=== PATIENT | female | born 1945 | race African-American/Black ===

== ENCOUNTER 2020-09-16 16:34 | Inpatient (IN) | payer OTHER, SELFPAY ==
[~2020-09-16] VITALS: Ht 167.6 cm; Wt 75.7 kg
--- NOTE | 2020-09-16 16:34 | NUR ---
Mckenzie GOLDEN, transferred to bed 10. RN evaluating patient at bedside.
--- NOTE | 2020-09-16 16:38 | NUR ---
Dr. Degroot is evaluating the patient at bedside.
[2020-09-16 16:41] VITALS: BP 179/76
[2020-09-16] MEDS ORDERED: DEXAMETHASONE 10 MG/ML VIAL IVP ONE (16:45)
[2020-09-16] MEDS ORDERED: AZITHROMYCIN 500 MG in DEXTROSE 5% 250 ML IV ONE (16:45)
[2020-09-16] MEDS ORDERED: cefTRIAXone 1,000 MG VIAL ONE (16:50)
[2020-09-16] MEDS ORDERED: AZITHROMYCIN 500 MG INJ VIAL IV ONE (16:50)
[2020-09-16] MEDS ORDERED: NACL 0.9% 1,000 ML IV ONE ×2 (17:00→21:00)
[2020-09-16 17:10] VITALS: BP 176/114
--- NOTE | 2020-09-16 17:10 | NUR ---
PT PLACED ON BIPAP AFTER ABG RESULTS GIVEN TO BIPAP VISION SETTINGS 14/7 RR 20 FIO2 100% ALARMS ON AND AUDIBLE AND B\S ARE DIMINISHED BILATERALLY, MED FACE MASK
--- NOTE | 2020-09-16 17:23 | NUR ---
@1641 received care of 75 year old female BIBA from home c/o shortness of breath, on non-rebreather but not connected to O2, pt gasping, labored breathing, tacypneic, diaphoretic. Pt transferred to bed, hooked up to O2 100 % 15 lpm NRB, connected to cardiac care nurse, IV access obtained, called to bedside, RT paged. Pt's intital vital signs @ 1649 : BP 179/76, HR 129, SpO2 83, RR 52 WV 125.
[2020-09-16 17:36] LABS: BASOPHILS % (AUTO) 0.8 % (0.0-2.0); HEMATOCRIT 34.8 % (36-48); HEMOGLOBIN 11.5 g/dL (12.0-16.0); LYMPHOCYTES # (AUTO) 0.4 K/uL (2.5-16.5); MEAN CORPUSCULAR HEMOGLOBIN 30 pg (27-31); MEAN CORPUSCULAR HGB CONC 33 g/dL (33-37); MEAN CORPUSCULAR VOLUME 90.5 fL (80-94); MONOCYTES # (AUTO) 0.4 K/uL (0.8-1.0); MONOCYTES % (AUTO) 6.7 % (1.7-9.3); NEUTROPHILS # (AUTO) 4.9 K/uL (1.8-7.7); NEUTROPHILS % (AUTO) 85.5 % (42.2-75.2); PLATELET COUNT (AUTO) 193 K/uL (140-450); RED BLOOD CELL COUNT(AUTO) 3.84 MIL/uL (4.20-5.40); RED CELL DISTRIBUTION WIDTH 19.7 % (11.6-13.7); WHITE BLOOD COUNT (AUTO) 5.7 K/uL (4.8-10.8)
[2020-09-16] MEDS ORDERED: ACETAMINOPHEN 650 MG SUPP RC ONE (17:45)
[2020-09-16 17:54] LABS: PROTHROMBIN TIME 12.1 secs (10.8-13.4)
[2020-09-16 17:55] LABS: ALBUMIN 2.5 g/dL (3.4-5.0); ANION GAP 16.1 (8-16); ASPARTATE AMINOTRANSFERASE 50 U/L (15-37); CHLORIDE 99 mmol/L (98-107); CREATININE 0.7 mg/dL (0.6-1.3); GLUCOSE 158 mg/dL (74-106); POTASSIUM 3.1 mmol/L (3.5-5.1); SODIUM SERUM 133 mmol/L (136-145); TOTAL BILIRUBIN 0.7 mg/dL (0.0-1.0); UREA NITROGEN, BLOOD 9 mg/dL (7-18)
[2020-09-16 17:56] LABS: C-REACTIVE PROTEIN QUANT 27.1 mg/dL (0.0-0.9)
[2020-09-16 18:03] LABS: APPEARANCE,URINE CLEAR (CLEAR); BILIRUBIN,URINE NEGATIVE (NEGATIVE); BLOOD, URINE TRACE-I (NEGATIVE); COLOR,URINE YELLOW (YELLOW); LEUKOCYTE ESTERASE ,URINE NEGATIVE (NEGATIVE); NITRITE, URINE NEGATIVE (NEGATIVE); UGLUCOSE NEGATIVE (NEGATIVE)
[2020-09-16 18:09] LABS: LACTATE DEHYDROGENASE 598 U/L (81-234)
--- NOTE | 2020-09-16 18:17 | NUR ---
Troponin 2.450--critical value received from lab. Dr Degroot made aware
--- NOTE | 2020-09-16 18:30 | NUR ---
MD notified of 3.1 K, will wait for Covid test results , per MD. Fluids not given, on hold, MD aware.
--- NOTE | 2020-09-16 18:44 | NUR ---
Covid +-- critical value received from lab. Dr Degroot made aware
--- NOTE | 2020-09-16 19:12 | NUR ---
Note undone in [facility] - 09/16/20 at 1916 by DEANA Dc hand-off report given to Sneha OSUNA for continuation of nursing care Addendum: 09/16/20 at 1912 by DEANA Dc Amendment undone in [facility] - 09/16/20 at 1916 by DEANA Coffman* Hand-off report given to Yeni OSUNA for continuation of nursing care.
--- NOTE | 2020-09-16 19:14 | NUR ---
RECIVED REPORT FROM MP OSUNA. TRANSFER OF CARE.
--- NOTE | 2020-09-16 19:20 | NUR ---
FAMILY AT BEDSIDE
--- NOTE | 2020-09-16 19:20 | NUR ---
WITH PERMISSON OF ERMD FAMILY AT BEDSIDE. PPE GIVEN.
--- NOTE | 2020-09-16 19:42 | NUR ---
RT AT BEDSIDE ASSESSING PATIENT.
[2020-09-16] MEDS ORDERED: MAG SULF 2000 MG/WATER PREMIX 50 ML IV PRN (20:05)
[2020-09-16] MEDS ORDERED: KCL 20 MEQ/WATER INJ PREMIX 200 ML IV PRN (20:05)
[2020-09-16] MEDS ORDERED: MORPHINE SULFATE 4 MG/ML SYR IVP PRN (20:05)
[2020-09-16] MEDS ORDERED: ONDANSETRON 4 MG/2 ML VIAL IVP PRN (20:05)
[2020-09-16] MEDS ORDERED: MAGNESIUM OXIDE 400 MG TAB PO PRN (20:05)
[2020-09-16] MEDS ORDERED: POTASSIUM CHLORIDE 10 MEQ TABER PO PRN (20:05)
[2020-09-16] MEDS ORDERED: HYDROcodone/APAP 5/325 MG 1 TAB TAB PO PRN (20:05)
[2020-09-16] MEDS ORDERED: remdesivir COMMUNICATION ORDER 1 EA MISC MC PRN ×2 (20:10→21:10)
[2020-09-16] MEDS ORDERED: guaiFENesin 20 MG/ML UDC PO PRN (20:10)
[2020-09-16] MEDS ORDERED: BENZONATATE 100 MG CAPLF PO PRN (20:10)
--- NOTE | 2020-09-16 20:17 | NUR ---
PATIENT O2SAT @ 79% ON BIPAP ERMD MADE AWARE. PER ERMD WILL TALK TO FAMILY ABOUT CODE STATUS. PER ERMD CODE STATUS STILL CURRENTLY FULL CODE.
[2020-09-16 20:37] LABS: RBC,URINE 0-5 /HPF (0-5)
[2020-09-16 20:38] LABS: FINE GRANULAR CASTS,URINE 0-10 /LPF (None Seen); URINE AMORPHOUS URATE 1+ /HPF (None Seen); WBC,URINE 0-5 /HPF (0-5)
--- NOTE | 2020-09-16 20:40 | NUR ---
NAOMI AT BEDSIDE. PER HER WISHES. PATIENT VERBALIZED, " I WANT TO BE INTUBATED, I WANT TO LIVE." NAOMI GAVE ORDERES TO SET UP INTUBATION PROCESS RT MADE AWARE.
[2020-09-16] MEDS ORDERED: PROPOFOL 1000 MG/100 ML PREMIX 100 ML IV ONE ×2 (20:43→20:45)
[2020-09-16] MEDS ORDERED: INTUBATION KIT MC ONE (20:43)
[2020-09-16] MEDS ORDERED: ETOMIDATE 20 MG/10 ML VIAL IVP ONE (20:45)
[2020-09-16] MEDS: ENOXAPARIN 80 MG/0.8 ML SYR SUBQ SCH (20:45)
[2020-09-16] MEDS ORDERED: ROCURONIUM 50 MG/5 ML VIAL IV ONE (20:45)
--- NOTE | 2020-09-16 20:57 | NUR ---
Dr. Degroot at patient bedside.
--- NOTE | 2020-09-16 20:59 | NUR ---
PATIENT INTUBATED 23CM @ LIP, 7.5 TUBE.
[2020-09-16] MEDS ORDERED: LOVENOX 1MG/KG Q12H SUBQ SCH (21:00)
[2020-09-16] MEDS ORDERED: FAMOTIDINE 20 MG TAB PO SCH (21:00)
--- NOTE | 2020-09-16 21:04 | NUR ---
Dr. Sweet is evaluating the patient at bedside.
--- NOTE | 2020-09-16 21:05 | NUR ---
DR. VILLASEÑOR AT BEDSIDE SIDE, DISCUSSED VENT SETTINGS AND TO KEEP PLATEAU PRESSURES LESS THAN 30 cmH20. POST INTUBATION ABG AND ABG IN THE MORNING.
--- NOTE | 2020-09-16 21:06 | NUR ---
X-Ray at bedside.
[2020-09-16 21:15] VITALS: BP 159/109
--- NOTE | 2020-09-16 21:34 | NUR ---
Received Pt on Bipap. Pt is intubated @ 20:[address] Degroot for respiratory failure and increase work of breathing with 7.5 ETT secured with anchor fast @ 23cm at lip. Pt is on vent setting AC/PC 25, R 24, IT 0.80, Fio2 100%, Peep 12. Airway is patent, Pt has good chest rise and fall. Ventilator plugged into the red outlet, alarms set audible. Ambu bag @ bedside. Will continue to monitor.
[2020-09-16] MEDS: NACL 0.9% 1,000 ML IV SCH (22:00)
--- NOTE | 2020-09-16 23:19 | NUR ---
FORTINO CONTACTS: MARY ANN (DAUGHTER): [phone] REHANA (GRAND DAUGHTER): [phone]
--- NOTE | 2020-09-16 23:20 | NUR ---
PER FAMILY MEDICAL HX INCLUDES: HTN, ANXIETY, RECIVING CHEMO FOR "ANEMIA/ABNORMAL BONE MARROW " NKA PRIOR TO ARRIVAL PATIENT AMBUALTORY WITH WALKER AT HOME.
--- NOTE | 2020-09-16 23:21 | NUR ---
PRIMARY CARE: DR.SARINA AGUILAR - [phone] ONCOLOGIST: DR. SUZANNE LOUIE @ [facility] IN [place]
--- NOTE | 2020-09-16 23:45 | NUR ---
Patient will be admitted to care of . Admited to ICU. Will go to room 100A. Belongings list completed. Report to ANA OSUNA.
[2020-09-17] VITALS (27 sets, daily range): BP systolic 67–176; BP diastolic 36–80
--- NOTE | 2020-09-17 | NUR ---
SEE IV SPREADSHEET FOR VS.
--- NOTE | 2020-09-17 00:20 | NUR ---
SPOKE WITH , RECEIVED ADMITTING ORDERS. WILL CARRY OUT.
--- NOTE | 2020-09-17 00:35 | NUR ---
PT TRANSFERRED TO ICU OVERFLOW 100A, VIA GURNEY. PT S/P INTUBATION IN ER, AC PC FI02 100%, RATE 24, PEEP 12. OGT IN PLACE, CLAMPED TO PATIENT. RIGHT WRIST 20G AND LEFT WRIST 20G, PT INFUSING PROPOFOL 10 MCG/KG/MIN, DRY WEIGHT 72.5. RASS -3, PT DOES NOT OPEN EYES BUT WITHDRAWS TO PAIN. NS @ 80ML/HR. TOWNSEND CATHETER IN PLACE, YELLOW URINE WITH SEDIMENT NOTED. SKIN WARM AND DRY, INTACT. PT BORDERLINE FEVER 100.3. PERRL 3MM. CONNECTED TO CONTINUOUS MONITORING, MRSA SWAB COLLECTED, PROVIDED HCG BATH, DROPLET PRECAUTIONS IN PLACE. WILL CONTINUE TO MONITOR.
[2020-09-17] MEDS ORDERED: PROPOFOL 1000 MG/100 ML PREMIX 100 ML IV ONE (00:38)
[2020-09-17] MEDS: fentaNYL citrate 1 MG in NACL 0.9% 80 ML IV PRN ×2 (00:45→11:13)
[2020-09-17] MEDS: PROPOFOL 1000 MG/100 ML PREMIX 100 ML IV PRN ×4 (00:45→20:29)
--- NOTE | 2020-09-17 01:00 | NUR ---
INCREASED THE RESPIRATORY RATE TO 28 AFTER ABG RESULT CALLED TO DR ZAMORA.
--- NOTE | 2020-09-17 02:00 | NUR ---
SPOKE WITH PATIENTS DAUGHTER TO UPDATE ON PATIENT CONDITION. RECEIVED MEDICAL HISTORY. ANSWERED ALL QUESTIONS AND CONCERNS. PT DAUGHTER-CECILIA [phone]
[2020-09-17] MEDS ORDERED: VASOPRESSIN 20 UNITS in NACL 0.9% 250 ML IV SCH (02:05)
[2020-09-17] MEDS ORDERED: NOREPINEPHRINE 4 MG/4 ML VIAL IV ONE (02:06)
[2020-09-17] MEDS: NOREPINEPHRINE 16 MG in DEXTROSE 5% 250 ML IV PRN (02:10)
--- NOTE | 2020-09-17 02:15 | NUR ---
BLOOD PRESSURE DECREASING, DR. VILLASEÑOR CALLED, NEW ORDERS FOR PRESSORS. AWARE THAT PATIENT IS DESATTING. OK TO PRONE IF BP IS STABLE. WILL CARRY OUT.
--- NOTE | 2020-09-17 05:15 | NUR ---
SPONGE BATH, TOWNSEND CARE, AND ORAL CARE PROVIDED. PT WAKES UP TO LIGHT PAIN, OPENS EYES SPONTANEOUSLY, REACHES FOR TUBE. NO SIGNS OF INJURY AT RESTRAINT SITES, SKIN INTACT. SAFETY MEASURES IN PLACE, INCREASED SEDATION FOR RASS -2.
[2020-09-17] MEDS ORDERED: ETOMIDATE 20 MG/10 ML VIAL IVP ONE (06:00)
[2020-09-17] MEDS ORDERED: ROCURONIUM 50 MG/5 ML VIAL IV ONE (06:00)
[2020-09-17 06:30] LABS: BASOPHILS % (AUTO) 0.3 % (0.0-2.0); EOSINOPHILS % (AUTO) 0.2 % (0.0-4.0); HEMATOCRIT 35.2 % (36-48); HEMOGLOBIN 11.6 g/dL (12.0-16.0); LYMPHOCYTES # (AUTO) 0.7 K/uL (2.5-16.5); LYMPHOCYTES % (AUTO) 10.6 % (20.5-51.1); MEAN CORPUSCULAR HEMOGLOBIN 30 pg (27-31); MEAN CORPUSCULAR HGB CONC 33 g/dL (33-37); MONOCYTES # (AUTO) 0.3 K/uL (0.8-1.0); NEUTROPHILS # (AUTO) 5.6 K/uL (1.8-7.7); NEUTROPHILS % (AUTO) 83.9 % (42.2-75.2); PLATELET COUNT (AUTO) 205 K/uL (140-450); RED BLOOD CELL COUNT(AUTO) 3.87 MIL/uL (4.20-5.40); RED CELL DISTRIBUTION WIDTH 19.7 % (11.6-13.7); WHITE BLOOD COUNT (AUTO) 6.7 K/uL (4.8-10.8)
--- NOTE | 2020-09-17 07:10 | NUR ---
REPORT TAKEN FROM BOARD SETTER RN. W/ PATENT CONTRAPTIONS. TACHYPNEIC ON PRESSURE CONTROL AND HIGH PEEP 8.
[2020-09-17 07:23] LABS: ALBUMIN 2.1 g/dL (3.4-5.0); ANION GAP 17.4 (8-16); ASPARTATE AMINOTRANSFERASE 68 U/L (15-37); CARBON DIOXIDE 19.2 mmol/L (21-32); CHLORIDE 104 mmol/L (98-107); CREATININE 1.5 mg/dL (0.6-1.3); GLUCOSE 122 mg/dL (74-106); MAGNESIUM 1.4 mg/dL (1.8-2.4); POTASSIUM 3.6 mmol/L (3.5-5.1); SODIUM SERUM 137 mmol/L (136-145); TOTAL BILIRUBIN 0.7 mg/dL (0.0-1.0); UREA NITROGEN, BLOOD 16 mg/dL (7-18)
[2020-09-17] MEDS: NACL 0.9% 1,000 ML IV SCH ×2 (08:45→09:41)
--- NOTE | 2020-09-17 09:11 | NUR ---
PATIENT HAS BEEN SCREENED AND CATEGORIZED HIGH NUTRITION RISK. PATIENT WILL BE SEEN WITHIN 1-2 DAYS OF ADMISSION. 09/17/20-09/18/[address]
[2020-09-17] MEDS: DEXAMETHASONE 4 MG/ML VIAL IVP SCH (09:36)
[2020-09-17] MEDS: FAMOTIDINE 20 MG/2 ML VIAL IVP SCH ×2 (09:37→21:33)
[2020-09-17] MEDS: ENOXAPARIN 80 MG/0.8 ML SYR SUBQ SCH ×2 (09:47→21:34)
--- NOTE | 2020-09-17 09:59 | NUR ---
PT. ADMITTED WITH LOW NAKITA SCALE AT RISK, CONTINUE TO FOLLOW PRESSURE INJURY PREVENTION INTERVENTIONS. -TURN AND REPOSITION PATIENT Q 2H -ASSESS AND MONITOR SKIN CONDITION DURING POSITION CHANGE -OFFLOAD BILATERAL HEELS BY PLACING PILLOWS UNDER CALVES AT ALL TIMES, UNLESS OTHERWISE CONTRAINDICATED -PRESSURE REDISTRIBUTION BY PLACING PILLOWS AND OFFLOADING SACRALCOCCYX -KEEP SKIN CLEAN AND DRY AT ALL TIMES.
--- NOTE | 2020-09-17 10:16 | NUR ---
SOCIAL WORK NOTE: Patient's Orientation Unable To Assess Information Provided By CECILIA EVERETT - DAUGHTER Comments SW WAS UNABLE TO MEET PATIENT AT BEDSIDE. SW COMPLETED ASSESSMENT WITH PATIENT'S DAUGHTER. Complex Human Resources Manager, Realtionship and Phone Number CECILIA EVERETT DAUGHTER [phone] [facility] Power of Brake Engineer No Does Patient Have a POLST No Identifying Problems No Social Work Triggers Is A Social Work Consult Needed No Mandate Report Filed No Explanation Of Identifying Problems PATIENT IS A 75-YEAR-OLD FEMALE ADMITTED FOR COVID AND PNEUMONIA. PATIENT HAS UNKNOWN PMHX. Admitted From Home Pre-Admission Level Of Functioning Status Independent With DME Level Of Functioning Comment DAUGHTER REPORTED PATIENT IS INDEPENDENT AT BASELINE. Prior Resources/Services Used In Last 12 Months No Prior Resources Used Prior DME Cane Walker Dialysis Comments N/A Living Situation Apartment Lives With Family Patient Had Caregiver No Home Support No Caregiver Issues Financial Issues No Known Financial Issue Referral To The Financial Counselor Needed No Factors/Needs No D/C Needs Identified Pt/Rep Participated In Discharge Plan Yes Patient/Family Agress With Discharge Plan Yes Discharge Plan Comments TENTATIVE DISCHARGE PLAN IS FOR PATIENT TO RETURN HOME. DC Plan Status Initiated
[2020-09-17] MEDS ORDERED: remdesivir CLINICAL MONITORING 1 EA MISC MC PRN (11:05)
--- NOTE | 2020-09-17 12:00 | NUR ---
ORAL CARE RENDERED AND SUCTIONED SECRETIONS VIA MOUTH AND ETT OBTAINED SCANTY AMOUNT OF PHLEGM WHITE MUCOID SECRETIONS.REPOSITIONED AFTER. MAINTAINED ON 30 DEGREES HOB TO FACILITATE EASY BREATHING AND PREVENT ASPIRATION.
[2020-09-17] MEDS ORDERED: REMDESIVIR (EUA) 200 MG in NACL 0.9% 100 ML IV SCH (13:00)
[2020-09-17] MEDS: DILTIAZEM 30 MG TAB PO SCH ×2 (13:42→17:33)
--- NOTE | 2020-09-17 14:00 | NUR ---
COMPLETE BED BATH DONE. REPOSITIONED AND MAINTAINED ON 30 DEGREES HOB TO FACILITATE EASY BREATHING AND PREVENT ASPIRATION.NO FACIAL GRIMACES SEEN BUT STILL TACHYPNEIC. KEPT ON CLOSE WATCH.
--- NOTE | 2020-09-17 14:21 | NUR ---
09/17/20 RD INITIAL ASSESSMENT COMPLETED PLEASE REFER TO NUTRITION ASSESSMENT UNDER CARE ACTIVITY FOR ESTIMATED NUTRITIONAL NEEDS. 1. RECOMMEND TWO MICHAEL HN @ 35 ML/HR X24 HR -PROVIDES 840 ML OF VOLUME, 1680 KCAL, 70 GM OF PROTEIN 2. RECOMMEND FREE WATER FLUSH OF 180 ML Q4H 3. RECOMMEND VITAMIN C 1000 MG DAILY AND VITAMIN D [address] TO FOLLOW-UP 2-3 DAYS, HIGH RISK SHAUNNA BURCH, RD
--- NOTE | 2020-09-17 14:24 | NUR ---
DISCHARGE PLANNING: THIS IS A 75 Y/O FEMALE PATIENT BIBA FROM HOME, DUE TO HYPOXIA AND COVID POSITIVE ANTIGEN TEST. INITIAL DIAGNOSIS OF COVID, PNEUMONIA AND ACUTE RESPIRATORY FAILURE. CURRENT LABS INCLUDE WBC 6.7, H/H 11.6/35.2, NA/K 137/3.6, BUN/CREA 16/1.5, TROP 9.831, FIBRINOGEN 456, D DIMER 4220. RAPID COVID TEST POSITIVE, PCR PENDING. INTUBATED TO VENT, FIO2 100%, O2 SAT 90%. SEDATED WITH PROPOFOL, FENTANYL. ON LEVOPHED DRIP. ON REMDESIVIR, AZITHROMYCIN, ROCEPHIN, DECADRON. PULMO, CARDIO, NEPHRO CONSULTS IN PLACE. DC PLAN PENDING ON PATIENT'S RESPONSE TO TREATMENT. ALINE VALADEZ OF [facility] UPDATED OF THE PATIENT'S CONDITION. HE PROVIDED ME WITH VERBAL AUTH [id number]. Addendum: 09/19/20 at 1149 by Ruby Fletcher CM ALINE RODRIGUEZ [facility] UPDATED OF THE PATIENT'S CONDITION. Addendum: 09/23/20 at 1353 by Ruby Fletcher CM REMAINS INTUBATED TO VENT, FIO2 80%, PEEP 10, O2 SAT 99%. SEDATED WITH FENTANYL, PROPOFOL. ON HEPARIN DRIP - APTT 40.9. ON DECADRON. SEEN BY YULIET - PATRICIA TOLERATED. YULIET SPOKE TO FAMILY TO DISCUSS CODE STATUS NAD PATIENT'S DAUGHTER STILL WANTS TO KEEP ON FULL CODE. Addendum: 09/25/20 at 1122 by Ruby Fletcher CM CM ALLYSON OF [facility] UPDATED OF THE PATIENT'S CONDITION. Addendum: 09/29/20 at 1420 by Ruby Fletcher CM REMAINS IN ICU. ETT TO VENT, FIO2 40%, PEEP 7, O2 SAT 98%. SEDATED WITH FENTANYL AND PROPOFOL. ON DECADRON. SEEN BY PULMO - 2 UNITS PRB TODAY, KEEP HGB ABOVE 7.0. KEEP O2 SAT 88% AND ABOVE, WEAN TOLERATED. CM JOONE OF [facility] UPDATED OF THE PATIENT'S CONDITION. PER CM JOONE, TODAY'S STAY IS AUTHORIZED WITH THE SAME AUTH NUMBER [id number]. Addendum: 09/30/20 at 1248 by Ruby Fletcher CM CM JOONE OF [facility] UPDATED OF THE PATIENT'S CONDITION. PER CM JOONE STAY IS AUTH WITH THE SAME AUTH NUMBER. Addendum: 10/06/20 at 0985 by Ruby Fletcher CM S/P PEG AND TRACH WITH DR. FRANCISCO 10/03/2020. RECEIVED AN ORDER FOR LTAC EVAL. ALINE VALADEZ OF [facility] MADE AWARE. WILL FOLLOW UP. Addendum: 10/06/20 at 1142 by Ruby Fletcher CM CONTACTED PATIENT'S DAUGHTER CECILIA EVERETT AT [phone] TO DISCUSS LTAC ORDER, NO ANSWER. UNABLE TO LEAVE MESSAGE, MAILBOX IS FULL. CHARGE NURSE TIANA MADE AWARE, IF IN ANY CASE DAUGHTER CALLS THE UNIT TO PROVIDE MY NUMBER. WILL FOLLOW UP. Addendum: 10/06/20 at 1143 by Ruby Fletcher CM REFERRAL SENT TO [facility]. WILL FOLLOW UP. Addendum: 10/06/20 at 1603 by Ruby Fletcher ABLE TO GET A HOLD OF THE PATIENT'S DAUGHTER CECILIA EVERETT AND DISCUSSED LTAC EVALUATION AND IS IN AGREEMENT. SHE STATED SHE PREFERS [facility] HOWEVER IF BED IS NOT AVAILABLE AND IF NOT AVAILABLE, [facility] IS OK. ALINE VALADEZ OF [facility] MADE AWARE. REFERRAL SENT TO [facility]. V[facility]RAN MADE AWARE. Addendum: 10/07/20 at 0928 by Ruby Fletcher CM PER SPARKLE, HE IS WORKING ON IT. ALINE VALADEZ OF [facility] MADE AWARE. PER ALINE VALADEZ WHY NOT SUB ACUTE. INFORMED THAT PATIENT IS STILL ON FENTANYL DRIP AND NO SUB ACUTE WILL BE ABLE TO ACCEPT THE PATIENT. HE SAID, HE WILL REACH OUT TO HIS CLIPPER AND TURNER AND SPARKLE. WILL FOLLOW UP. Addendum: 10/07/20 at 0945 by Zayra Ayoub CM FRANCO JOHNSON: FAXED UPDATED CLINICALS TO [facility]. Addendum: 10/08/20 at 1533 by Ruby Fletcher CM LATE ENTRY FOR TODAY: ALINE VALADEZ OF [facility] UPDATED OF THE PATIENT'S CONDITION. INFORMED HIM THAT WE ARE TRYING TO TAPER OFF FENTANYL. HE STATED ONCE FENTANYL IS OFF WE CAN START LOOKING FOR SUB ACUTE AND TO SEND REFERRAL TO [facility]. REACHED OUT TO PATIENT'S DAUGHTER CECILIA TO DISCUSS PLAN AND IS IN AGREEMENT. 1500: PER PRIMARY RN, SHE TRIED TAPERING OFF FENTANYL HOWEVER, PATIENT BECAME TACHYPNEIC RR 40'S. SHE ALSO STATED THAT SHE GAVE PRN ATIVAN BUT IT DID HELP THAT MUCH. PER RN, SHE WILL DISCUSS WITH AGILE JAVA DEVELOPER ONCE IN IF HE CAN PRESCRIBED ANOTHER MED TO CALM THE PATIENT DOWN. AILNE VALADEZ OF [facility] MADE AWARE. HE STATED, HE WILL FOLLOW UP WITH SPARKLE THEN. SPARKLE MADE AWARE. PATIENT'S DAUGHTER CECILIA UPDATED WELL. Addendum: 10/08/20 at 1534 by Ruby Fletcher CM PER SPARKLE, NO BEDS AT THE MOMENT. Addendum: 10/08/20 at 1636 by Zayra Ayoub CM [facility] JOHNSON: YRIS RAHMAN [phone] Addendum: 10/08/20 at 1705 by Zayra Ayoub CM FRANCO JOHNSON: CALLED TO SET UP WILL CALL TRANSPORTATION WITH [facility] [phone]. [facility] LOCATION PENDING BUT IN ORDER FOR THEM TO LET ME SET UP WILL CALL TRANSPORTATION THEY NEEDED TO INPUT A LOCATION IN THE MEANTIME THEY PUT [facility]. WHEN CALLING TO ACTIVATE WILL CALL TRANSPORT PLEASE BE SURE TO VERIFY ACCEPTING LOCATION IS CORRECT. SET UP WILL CALL WITH A PROCUREMENT DIRECTOR, CLYDE NASH, AND NOTIFIED THEM THAT PATIENT IS TRACH TO VENT FIO2 35% Addendum: 10/10/20 at 1156 by Ruby Fletcher CM ALINE RODRIGUEZ [facility] UPDATED OF THE PATIENT'S CONDITION. Addendum: 10/10/20 at 1525 by Zayra Ayoub CM DC PUBLIC ACCOUNTANT: TINY ARECHIGA [facility] REQUESTED UPDATED CLINICALS HE MAY HAVE AN AVAILABLE BED. FAXED CLINICALS. Addendum: 10/10/20 at 1535 by Zayra Ayoub CM DC PUBLIC ACCOUNTANT: PATIENT HAS BEEN ACCEPTED AT [place] [id number] BISHOP. Addendum: 10/10/20 at 1547 by Zayra Ayoub CM DC PUBLIC ACCOUNTANT: NOTIFIED ALINE VALADEZ FROM [facility] THAT PATIENT HAS BEEN ACCEPTED AT [facility] TRANSPORTATION IS SET UP ON WILL CALL WITH [facility] [phone]. CONTACT [facility] ONCE PATIENT IS READY FOR DC. SPOKE TO PATIENTS DAUGHTER CECILIA TO NOTIFY HER THAT [facility]IENT Addendum: 10/11/20 at 1150 by Zayra Ayoub CM FRANCO NURNER: SPOKE TO ICU NURSE PATIENTS DC TO [facility] WAS HELD OFF DUE TO HEART RATE AND WAS PLACED ON PROPOFOL DRIP. SPOKE TO TINY THORNE [facility] TO SEE IF THEY CAN ACCEPT PATIENT ON PROPOFOL DRIP, HE WILL CONTACT ME BACK. Addendum: 10/11/20 at 1205 by Zayra Ayoub CM FRANCO PUBLIC ACCOUNTANT: [facility] NUMBER FOR REPORT [phone]. [facility] TRANSPORTATION IS FOR 2:00 PM. NOTIFIED ICU NURSE FREDA. Addendum: 10/11/20 at 1209 by Zayra Ayoub CM FRANCO JOHNSON: CONTACTED PATIENTS DAUGHTER CECILIA TO NOTIFY HER OF TRANSFER TO [facility] WILL BE TODAY AT 2:00 PM
[2020-09-17] MEDS: AZITHROMYCIN 500 MG in DEXTROSE 5% 250 ML IV SCH (17:30)
--- NOTE | 2020-09-17 19:00 | NUR ---
ALL NEED ATTENDED AND MET DURING THE SHIFT. STILL TACHYPNEIC. CONDITION UNCHANGED REPORT GIVEN TO FILTER FILLER RN FOR CONTIMUITY OF CARE/
--- NOTE | 2020-09-17 19:30 | NUR ---
REPORT RECEIVED FROM NAVA OSUNA. PATIENT INTUBATED AND SEDATED, ETT TO VENT, VENT SETTINGS AC PC FIO2 80%, PEEP 12, RR 28. HOB AT 30 DEGREES, ET TUBE PATENT, SECURED AND MAINTAINABLE. OG TUBE IN PLACE, PATENT, CLEAR AND SECURED, RESIDUALS 5ML. PATIENT CONNECTED TO CONTINUOUS TELE MONITOR, SINUS TACHY ON THE MONITOR, WILL CONTINUE TO FREQUENTLY ROUND AND CLOSELY MONITOR. RIGHT AND LEFT FOREARM PERIPHERAL IV'S IN PLACE. DRIPS RUNNING ARE FENTANYL AT 0.5 MCG/KG/HR, PROPOFOL 40 MCG/KG/MIN, NS AT 80ML/HR, AND LEVO AT 10 MCG/MIN. TOWNSEND CATH IN PLACE, SECURED AND PATENT.SKIN NON INTACT, MINOR BLISTERING TO LOWER BACK AND SACRAL AREA. ON FEET, TOES SLIGHTLY POINTED INWARD. PATIENT BED LOWERED AND LOCKED, PATIENT IN A POSITION OF COMFORT. PATIENT OFFLOADED FROM PRESSURE POINTS WITH US OF PILLOWS AND FREQUENT TURNING. WILL CONTINUE TO MONITOR PATIENT CLOSELY AND FREQUENTLY ROUND THROUGHOUT SHIFT. Addendum: 09/17/20 at 2233 by Cesar Guillen RN RN RASS -2 Addendum: 09/18/20 at 0146 by Cesar Guillen RN RN PATIENT DRY WEIGHT 72.5 KG. SOFT WRIST RESTRAINTS ON LEFT AND RIGHT WRISTS, POSITIVE/INTACT PMSC'S (PULSE, MOTOR, SENSORY, CAP REFILL), WILL CONTINUE TO CLOSELY MONITOR AND FREQUENTLY ROUND/RELEASE RESTRAINTS HOURLY.
--- NOTE | 2020-09-17 20:45 | NUR ---
COOLING MEASURES IMPLEMENTED FOR FEVER, COOL WASH CLOTHS PLACED ON FOREHEAD AND INNER LEGS. WILL CONTINUE TO MONITOR AND FREQUENTLY ROUND.
--- NOTE | 2020-09-17 21:00 | NUR ---
PICC LINE NURSE SUCCESSFULLY INSERTED RIGHT UPPER ARM DOUBLE LUMEN PICC, VERIFIED BY XRAY AND PICC LINE NURSE REVIEW. PICC LINE RN GAVE THE OK TO USE NEWLY INSERTED PICC LINE. PATIENT TOLERATING WELL, WILL CONTINUE TO CLOSELY MONITOR AND FREQUENTLY ROUND.
[2020-09-17] MEDS: ACETAMINOPHEN 325 MG TAB PO PRN (21:54)
[2020-09-17] MEDS ORDERED: CRUSHER, PILL MC ONE (22:06)
--- NOTE | 2020-09-17 22:30 | NUR ---
VAP ORAL CARE, HYGIENE AND OFFLOADING FROM PRESSURE POINTS PROVIDED, PATIENT INTUBATED AND SEDATED FLACC 0, WILL CONTINUE TO CLOSELY MONITOR AND FREQUENTLY ROUND.
[2020-09-18] VITALS (36 sets, daily range): BP systolic 83–179; BP diastolic 7–98
--- NOTE | 2020-09-18 01:49 | NUR ---
PATIENT TOLERATING COOLING MEASURES WELL, TEMP DOWN TO 99.6 AXILLARY @ 0100, WILL CONTINUE TO CLOSELY MONITOR AND FREQUENTLY ROUND.
[2020-09-18] MEDS: PROPOFOL 1000 MG/100 ML PREMIX 100 ML IV PRN ×5 (02:08→21:20)
--- NOTE | 2020-09-18 05:35 | NUR ---
CALLED DOCTOR PALIWLEXI REGARDING UPDATE IN PATIENT CONDITION, NO ANSWER. DOCTOR HARISIWAL PAGED IMMEDIATELY AFTER.
[2020-09-18] MEDS: NOREPINEPHRINE 16 MG in DEXTROSE 5% 250 ML IV PRN (06:30)
[2020-09-18] MEDS: fentaNYL citrate 1 MG in NACL 0.9% 80 ML IV PRN ×2 (06:30→16:32)
[2020-09-18 06:42] LABS: BASOPHILS # (AUTO) 0.1 K/uL (0.00-0.22); BASOPHILS % (AUTO) 0.3 % (0.0-2.0); EOSINOPHILS % (AUTO) 0.1 % (0.0-4.0); HEMATOCRIT 33.6 % (36-48); HEMOGLOBIN 11.3 g/dL (12.0-16.0); LYMPHOCYTES # (AUTO) 1.1 K/uL (2.5-16.5); LYMPHOCYTES % (AUTO) 5.3 % (20.5-51.1); MEAN CORPUSCULAR HEMOGLOBIN 31 pg (27-31); MEAN CORPUSCULAR HGB CONC 34 g/dL (33-37); MONOCYTES # (AUTO) 1.1 K/uL (0.8-1.0); MONOCYTES % (AUTO) 5.1 % (1.7-9.3); NEUTROPHILS # (AUTO) 18.5 K/uL (1.8-7.7); NEUTROPHILS % (AUTO) 89.2 % (42.2-75.2); PLATELET COUNT (AUTO) 238 K/uL (140-450); RED BLOOD CELL COUNT(AUTO) 3.69 MIL/uL (4.20-5.40); WHITE BLOOD COUNT (AUTO) 20.7 K/uL (4.8-10.8)
[2020-09-18 07:02] LABS: ALBUMIN 1.9 g/dL (3.4-5.0); ANION GAP 18.7 (8-16); ASPARTATE AMINOTRANSFERASE 68 U/L (15-37); CARBON DIOXIDE 20.1 mmol/L (21-32); CHLORIDE 102 mmol/L (98-107); CREATININE 2.9 mg/dL (0.6-1.3); GLUCOSE 121 mg/dL (74-106); MAGNESIUM 2.1 mg/dL (1.8-2.4); POTASSIUM 4.8 mmol/L (3.5-5.1); SODIUM SERUM 136 mmol/L (136-145); TOTAL BILIRUBIN 1.4 mg/dL (0.0-1.0); UREA NITROGEN, BLOOD 34 mg/dL (7-18)
--- NOTE | 2020-09-18 07:10 | NUR ---
REPORT GIVEN BY ENRRIQUE ARROYOW/ PATENT CONTRAPTIONS INTACT.MILDLY TACHYPNEIC BUT NO FACIAL GRIMACES SEEN. PT COMFORTABLY ON BED.
--- NOTE | 2020-09-18 07:25 | NUR ---
DR SIMMONS RETURNED CALL, GAVE VERBAL ORDER OF 0.5 MG OF DIGOXIN IV, ONCE. DAYSHIFT NURSE GIVEN INFORMATION ON VERBAL ORDER.
[2020-09-18] MEDS ORDERED: DIGOXIN 0.25 MG/ML AMP IV SCH ×2 (08:00→17:30)
[2020-09-18] MEDS: DEXAMETHASONE 4 MG/ML VIAL IVP SCH (08:56)
[2020-09-18] MEDS: FAMOTIDINE 20 MG/2 ML VIAL IVP SCH (08:57)
[2020-09-18] MEDS: DILTIAZEM 30 MG TAB PO SCH ×3 (08:57→17:14)
[2020-09-18] MEDS: ENOXAPARIN 80 MG/0.8 ML SYR SUBQ SCH (08:58)
[2020-09-18] MEDS ORDERED: HEPARIN PER PHARMACY MC PRN (11:20)
--- NOTE | 2020-09-18 11:30 | NUR ---
VISITED AND EXAMINED BY DR. BLACK UPDATED TO PT'S CONDITION AND AWARE OF PT'S CRITICAL CONDITION.SPOKE W/ PT'S DAUGHTER KARAN AND PT'S DAUGHTER CLAIMED TO DO EVERYTHING FULL CODE.
[2020-09-18] MEDS ORDERED: REMDESIVIR (EUA) 100 MG in NACL 0.9% 100 ML IV SCH (12:00)
--- NOTE | 2020-09-18 12:55 | NUR ---
REDUCED FIO2 TO 70% AND PEEP TO +10. PT SATURATION STABLE AT 96%. NO SIGNS OF RESPIRATORY DISTRESS. WILL CONTINUE TO MONITOR.
--- NOTE | 2020-09-18 14:00 | NUR ---
COMPLETE BED BATH DONE. STILL UNCONTROLLED ATRIAL FIB RATE RANGES FROM 100-150 BEATS/MIN ORAL CARE RENDERED AND SUCTIONING OF ORAL AND VIA ET TUBE DONE. REPOSITIONED AFTER.
[2020-09-18] MEDS: hePARIN / DEXT 5% PREMIX 250 ML IV SCH (16:45)
[2020-09-18] MEDS: AZITHROMYCIN 500 MG in DEXTROSE 5% 250 ML IV SCH (17:00)
[2020-09-18] MEDS: DILTIAZEM 125 MG in DEXTROSE 5% 100 ML IV SCH (17:27)
--- NOTE | 2020-09-18 17:30 | NUR ---
VIITED AND EXAMINED BY DR. SIMMONS UPDATED TO PT'S CONDITION W/ ORDER NOTED AND CARRIED OUT.CARDIZEM DRIP STATED @ 5MG/HR.
--- NOTE | 2020-09-18 18:32 | NUR ---
ALL NEEDS ATTENDED AND MET DURING THE THE SHIFT. PT'S CONDITION STILL CRITICALLY UNSTABLE. TO BE ENDORSED TO NIGHT RN FOR CONTINUITY OF CARE.
--- NOTE | 2020-09-18 19:45 | NUR ---
PT TRANSFERRED TO ICU BED 8, NO INCIDENT NOTED. RECEIVED REPORT. ETT TO VENT, AC PC 80%, RATE 28, PEEP 10. KALEY PICC IN PLACE, PROPOFOL 50 MCG/KG/MIN, FENTANYL 1.5 MCG KG/HR, IVF NS @ 80ML/HR, LEVOPHED 10MCG/MIN, HEPARIN 850U/HR, AND CARDIZEM 5MG/HR. DRY WEIGHT [address], CONNECTED TO 2CAL HN. RIGHT WRIST 20G, SL. PT RASS -2, WAKES UP WITH SOME LIGHT PAIN, OPENS EYES, PERRL. SKIN WARM AND DRY, SOME SMALL BLISTERS AT BUTTOCKS, OPTIFOAM DRESSING IN PLACE. DROPLET PRECAUTIONS IN PLACE, HOB 30 DEGREES. BED LOCKED AND IN LOWEST POSITION, SIDE RAILS UP, FLACC 0. WILL CONTINUE TO MONITOR.
--- NOTE | 2020-09-18 20:20 | NUR ---
Cardizem temporarily held, patient went bradycardic, hr under 40bpm.
--- NOTE | 2020-09-18 21:32 | NUR ---
BLOOD PRESSURE HIGH, SWITCHED CUFF AND SITE, STILL ELEVATED, TITRATED PRESSOR INDICATED.
--- NOTE | 2020-09-18 21:47 | NUR ---
CARDIZEM RESTARTED AND INCREASED PER PROTOCOL. WILL CONTINUE TO MONITOR.
[2020-09-19] VITALS (27 sets, daily range): BP systolic 101–132; BP diastolic 51–72
--- NOTE | 2020-09-19 00:10 | NUR ---
PT TURNED AND REPOSITIONED, PROVIDED ORAL CARE, PT WITHDRAWS TO PAIN. SKIN WARM AND DRY, AFEBRILE, SAFETY MEASURES IN PLACE.
[2020-09-19] MEDS: PROPOFOL 1000 MG/100 ML PREMIX 100 ML IV PRN ×8 (00:48→23:03)
[2020-09-19] MEDS: NACL 0.9% 1,000 ML IV SCH ×2 (01:45→14:00)
--- NOTE | 2020-09-19 02:00 | NUR ---
PT RASS -2, NO SIGNS OF DISTRESS, VISIBLE CHEST RISE AND FALL. PT OFFLOADED PRESSURE AREAS WITH PILLOWS, HOB 30 DEGREES, SIDERAILS UP, WILL CONTINUE TO MONITOR.
--- NOTE | 2020-09-19 04:10 | NUR ---
TUBE FEED RESIDUALS OVER 200ML, HELD FEEDING. PROVIDED ORAL CARE AND REPOSITIONED TO OFFLOAD PRESSURE AREAS.
[2020-09-19 05:47] LABS: HEMATOCRIT 31.8 % (36-48); HEMOGLOBIN 10.5 g/dL (12.0-16.0); MEAN CORPUSCULAR HEMOGLOBIN 30 pg (27-31); MEAN CORPUSCULAR HGB CONC 33 g/dL (33-37); MEAN CORPUSCULAR VOLUME 90.5 fL (80-94); PLATELET COUNT (AUTO) 251 K/uL (140-450); RED BLOOD CELL COUNT(AUTO) 3.51 MIL/uL (4.20-5.40); RED CELL DISTRIBUTION WIDTH 19.7 % (11.6-13.7)
--- NOTE | 2020-09-19 05:50 | NUR ---
SPONGE BATH TOWNSEND CARE AND ORAL CARE PROVIDED. PT TOLERATED WELL. NO BM NOTED. SMALL BLISTERS AT BUTTOCKS ARE VERY MINIMAL, INTACT. , OPTIFOAM IN PLACE. NO DISTRESS NOTED. HOB 30 DEGREES, SIDE RAILS UP, BED LOCKED AND IN LOWEST POSITION. CONTINUE TO HOLD TF.
[2020-09-19 06:17] LABS: WHITE BLOOD COUNT (AUTO) 25.7 K/uL (4.8-10.8)
--- NOTE | 2020-09-19 06:25 | NUR ---
TOWNSEND OUTPUT 30ML.
[2020-09-19] MEDS ORDERED: DILTIAZEM 125 MG/25 ML VIAL IV ONE (06:30)
[2020-09-19] MEDS: DILTIAZEM 125 MG in DEXTROSE 5% 100 ML IV SCH ×2 (06:44→15:04)
[2020-09-19 07:43] LABS: LYMPHOCYTES % (MANUAL) 5 % (20-46); MONOCYTES % (MANUAL) 5 % (5-12)
[2020-09-19] MEDS ORDERED: FUROSEMIDE 100 MG/10 ML VIAL IV SCH (08:12)
[2020-09-19] MEDS: ASCORBIC ACID 500 MG/5 ML ORASYR GT SCH (08:19)
[2020-09-19] MEDS: VITAMIN D 400 IU TAB GT SCH (08:19)
[2020-09-19] MEDS: DEXAMETHASONE 4 MG/ML VIAL IVP SCH (08:21)
[2020-09-19] MEDS: FAMOTIDINE 20 MG/2 ML VIAL IVP SCH (08:22)
[2020-09-19] MEDS: DILTIAZEM 30 MG TAB PO SCH ×3 (08:23→17:00)
[2020-09-19 08:55] LABS: ALBUMIN 1.7 g/dL (3.4-5.0); CARBON DIOXIDE 17.6 mmol/L (21-32); CREATININE 3.5 mg/dL (0.6-1.3); GLUCOSE 147 mg/dL (74-106); MAGNESIUM 2.2 mg/dL (1.8-2.4); TOTAL BILIRUBIN 0.8 mg/dL (0.0-1.0); UREA NITROGEN, BLOOD 53 mg/dL (7-18)
[2020-09-19 09:07] LABS: ANION GAP 18.8 (8-16); CHLORIDE 101 mmol/L (98-107); POTASSIUM 4.4 mmol/L (3.5-5.1); SODIUM SERUM 133 mmol/L (136-145)
[2020-09-19 09:19] LABS: ASPARTATE AMINOTRANSFERASE 132 U/L (15-37)
--- NOTE | 2020-09-19 10:00 | NUR ---
SEEN AND EXAMINED BY DR.SARANI CORBETTTO PT'S CONDITION AND SPOKE W/ PT'S DAUGHTER AND WANTED TO DO EVERYTHING TO KEEP PT ALIVE. FOR INSERTION OF RUPA CATHETER AND FOR DIALYSIS CONENT TAKEN FROM THE DAUGHTER VIA PHONE.DR. NOLAN GARCIA.
--- NOTE | 2020-09-19 11:50 | NUR ---
PT. ADMITTED WITH LOW NAKITA SCALE AT RISK AND COVID POSITIVE. SKIN ASSESSMENT DONE WITH PRIMARY RN, MULTIPLE PIN POINTS BLISTERS WITH WRINKLING SKIN INTACT WITH BLISTERS FLUIDS RE-ABSORBING BACK TO TISSUE, MARY WOUND SKIN EXTENDED TO R/L BUTTOCKS SKIN INTACT, DARKER PIGMENTATION OBSERVED, POSSIBLE DTI R/T COVID SKIN FAILURE, FOAM DRESSING APPLY. POC DISCUSSED WITH PRIMARY RN. CONTINUE TO FOLLOW PRESSURE INJURY PREVENTION INTERVENTIONS. -APPLY FOAM DRESSING TO SACRALCOCCYX QD AND N IF SOILING -TURN AND REPOSITION PATIENT Q 2H -ASSESS AND MONITOR SKIN CONDITION DURING POSITION CHANGE -OFFLOAD BILATERAL HEELS BY PLACING PILLOWS UNDER CALVES AT ALL TIMES, UNLESS OTHERWISE CONTRAINDICATED -PRESSURE REDISTRIBUTION BY PLACING PILLOWS AND OFFLOADING SACRALCOCCYX -KEEP SKIN CLEAN AND DRY AT ALL TIMES.
[2020-09-19] MEDS: FOAM DRESSING TP SCH (13:00)
[2020-09-19] MEDS: NOREPINEPHRINE 16 MG in DEXTROSE 5% 250 ML IV PRN ×2 (13:00→14:55)
[2020-09-19 13:55] LABS: PROTHROMBIN TIME 10.9 secs (10.8-13.4)
[2020-09-19] MEDS: hePARIN / DEXT 5% PREMIX 250 ML IV SCH ×2 (13:56→14:54)
--- NOTE | 2020-09-19 14:25 | NUR ---
Dr. elpidio webster here will insert dialysis catheter, per need heparin 5000
[2020-09-19] MEDS: fentaNYL citrate - 50mL vial 2.5 MG in NACL 0.9% 200 ML IV PRN (14:30)
--- NOTE | 2020-09-19 15:45 | NUR ---
DR FRANCISCO CAME IN AND INSERTED A RUPA CATHETER UNDER ASEPTIC TECHNIQUE AND DRESSING DONE ON THE RT. JUGULAR AREA. PORTABLE CXR DONE TO CHECK RUPA CATHETER PLACEMENT.
[2020-09-19] MEDS: AZITHROMYCIN 500 MG in DEXTROSE 5% 250 ML IV SCH (18:00)
--- NOTE | 2020-09-19 19:00 | NUR ---
ALL NEED ATTENDED AND MET DURING THE SHIFT. STILL CRITICALLY UNSTABLE W/ PATENT CONTRAPTIONS. ENDORSED TO ANA CONDITION UNCHANGED FO FURTHER CARE .
--- NOTE | 2020-09-19 20:10 | NUR ---
ETT TO VENT, AC PC FI02 100%, RATE 28, PEEP 10. RIJ RUPA CATH WITH PIGTAIL. KALEY PICC, NS @ 80ML/HR, LEVOPHED 6 MCG/MIN, PROPOFOL 50 MCG/KG/MIN, FENTANYL 1.5 MCG/KG/HR, CARDIZEM 5 MG/HR, AND HEPARIN 1150U/HR. DRY WEIGHT 72 KG. RASS -2. RIGHT AND LEFT WRIST 20G, BOTH SL. OGT TO TUBE FEEDING. TONWSEND IN PLACE. SOME BLISTERS TO BUTTOCKS, OPTIFOAM DRESSING IN PLACE. FLACC 0, HOB 30 DEGREES, SIDE RAILS UP, BED LOCKED AND IN LOWEST POSITION. DROPLET PRECAUTIONS IN PLACE. WILL CONTINUE TO MONITOR.
[2020-09-20] VITALS (32 sets, daily range): BP systolic 96–173; BP diastolic 45–81
[2020-09-20] MEDS: PROPOFOL 1000 MG/100 ML PREMIX 100 ML IV PRN ×5 (04:00→23:46)
[2020-09-20 06:14] LABS: HEMATOCRIT 29.1 % (36-48); HEMOGLOBIN 9.4 g/dL (12.0-16.0); MEAN CORPUSCULAR HEMOGLOBIN 29 pg (27-31); MEAN CORPUSCULAR HGB CONC 32 g/dL (33-37); MEAN CORPUSCULAR VOLUME 90.3 fL (80-94); PLATELET COUNT (AUTO) 238 K/uL (140-450); RED BLOOD CELL COUNT(AUTO) 3.23 MIL/uL (4.20-5.40); RED CELL DISTRIBUTION WIDTH 19.6 % (11.6-13.7)
[2020-09-20 06:46] LABS: ALBUMIN 1.6 g/dL (3.4-5.0); ANION GAP 24.3 (8-16); ASPARTATE AMINOTRANSFERASE 63 U/L (15-37); CARBON DIOXIDE 14.1 mmol/L (21-32); CHLORIDE 99 mmol/L (98-107); GLUCOSE 142 mg/dL (74-106); MAGNESIUM 1.9 mg/dL (1.8-2.4); POTASSIUM 4.4 mmol/L (3.5-5.1); SODIUM SERUM 133 mmol/L (136-145); TOTAL BILIRUBIN 0.5 mg/dL (0.0-1.0)
--- NOTE | 2020-09-20 06:52 | NUR ---
ETT TO VENT, AC PC FI02 100%, RATE 28, PEEP 10. RIJ RUPA CATH WITH PIGTAIL. KALEY PICC, NS @ 80ML/HR, LEVOPHED 6 MCG/MIN, PROPOFOL 45 MCG/KG/MIN, FENTANYL 2.5 MCG/KG/HR, CARDIZEM 5 MG/HR, AND HEPARIN 710U/HR. DRY WEIGHT 72 KG. RASS -2. [place] OUTPUT 150 ML. SOME BLISTERS TO BUTTOCKS, OPTIFOAM DRESSING IN PLACE. FLACC 0, HOB 30 DEGREES, SIDE RAILS UP, BED LOCKED AND IN LOWEST POSITION. WILL ENDORSE TO DAYSHIFT NURSE.
[2020-09-20 06:59] LABS: UREA NITROGEN, BLOOD 64 mg/dL (7-18)
[2020-09-20 07:01] LABS: CREATININE 4.1 mg/dL (0.6-1.3)
--- NOTE | 2020-09-20 07:15 | NUR ---
RECEIVED PT FROM THE [facility] CLERK ENRRIQUE PEREZ.PT STILL INTUBATED AND SEDATED.W/ TACHYPNEA NOTED.W/ PATENT CONTRAPTIONS,.
[2020-09-20 08:05] LABS: LYMPHOCYTES % (MANUAL) 2 % (20-46); MONOCYTES % (MANUAL) 2 % (5-12); WHITE BLOOD COUNT (AUTO) 31.7 K/uL (4.8-10.8)
[2020-09-20] MEDS: FAMOTIDINE 20 MG/2 ML VIAL IVP SCH (09:00)
[2020-09-20] MEDS: DEXAMETHASONE 4 MG/ML VIAL IVP SCH (09:00)
[2020-09-20] MEDS: VITAMIN D 400 IU TAB GT SCH (09:00)
[2020-09-20] MEDS: ASCORBIC ACID 500 MG/5 ML ORASYR GT SCH (09:00)
[2020-09-20] MEDS: DILTIAZEM 30 MG TAB PO SCH ×3 (09:00→16:32)
[2020-09-20] MEDS: fentaNYL citrate - 50mL vial 2.5 MG in NACL 0.9% 200 ML IV PRN ×2 (09:55→23:50)
--- NOTE | 2020-09-20 12:00 | NUR ---
BLOOD DRAWN FOR PT AND PTT HEPARIN DRIP @ 710 UNITS/HR.AWAITING FOR THE RESULT.LEVOPHED TAPERED DOWN TO 56 MCG/MIN.
[2020-09-20] MEDS: FOAM DRESSING TP SCH (13:00)
--- NOTE | 2020-09-20 13:15 | NUR ---
DR SOSA AT BEDSIDE
--- NOTE | 2020-09-20 13:20 | NUR ---
CONTRACTOR GENERAL BUILDING MIRA CAME IN HD APPLICATION INTEGRATION SPECIALIST AND DIALYSIS INITIATED. KEPT ON CLOSE WATCH.NO FACIAL GRIMACES SEEN.HEART RATE STILL UNSTABLE.
--- NOTE | 2020-09-20 13:49 | NUR ---
(09/20/20) RD FOLLOW UP COMPLETED PLEASE REFER TO NUTRITION PROGRESS NOTE UNDER CARE ACTIVITY FOR ESTIMATED NUTRITION NEEDS. RD RECOMMENDATIONS: 1. RECOMMEND REGLAN OR OTHER MOTILITY AGENT DUE TO GRV > 200 ML. 2. CONTINUE TO HOLD TWO MICHAEL HN @ 35 ML/HR PER MD ORDER. 3. IF/WHEN MEDICALLY APPROPRIATE, RESUME TWO MICHAEL HN AT 10 ML/HR, INCREASING BY 10 ML/HR Q4H TOLERATED. AT GOAL RATE OF 35 ML/HR, TF WILL PROVIDE 840 ML OF VOLUME, 1680 KCAL, 70 GM OF PROTEIN, WHICH MEETS 95% ESTIMATED KCAL NEEDS AND 80% ESTIMATED PROTEIN NEEDS; ADEQUATE. 3. RD TO FOLLOW-UP 2-3 DAYS, HIGH RISK MANDIE HIGGINS, , RDN
--- NOTE | 2020-09-20 15:25 | NUR ---
HEMODIALYSIS COMPLETED. OBTAINED 1 LITER AN OUTPUT. PT'S BP W/IN NORMAL RANGE. COMPLETE BED BATH DONE,REPOSITIONED AND MAINTAINED @ 30 DEGREES HOB TO FACILITATE EASY BREATHING AND PREVENT ASPIRATION,
[2020-09-20] MEDS: AZITHROMYCIN 500 MG in DEXTROSE 5% 250 ML IV SCH (17:00)
--- NOTE | 2020-09-20 19:11 | NUR ---
RECEIVED PT FROM DAY SHIFT ON VENT SETTING PC 15, R 28, PEEP 10, FIO2 95% . PT INTUBATED WITH SIZE 7.5 ETT SECURED WITH ANCHOR FAST 23CM A@ LIP/GUM. VENTILATOR PLUGGED INTO THE RED OUTLET.BVM @ BEDSIDE, ALARMS SET AUDIBLE. AIRWAY PATENT, B/S RALES ON AUSCULTATION NO RESPIRATORY DISTRESS NOTED. WILL CONTINUE TO MONITOR.
[2020-09-20] MEDS: NACL 0.9% 1,000 ML IV SCH (22:00)
[2020-09-21] VITALS (48 sets, daily range): BP systolic 108–172; BP diastolic 49–79
[2020-09-21] MEDS: hePARIN / DEXT 5% PREMIX 250 ML IV SCH (01:46)
[2020-09-21] MEDS: PROPOFOL 1000 MG/100 ML PREMIX 100 ML IV PRN ×5 (03:10→20:46)
[2020-09-21 06:24] LABS: BASOPHILS % (AUTO) 0.1 % (0.0-2.0); HEMATOCRIT 28.2 % (36-48); HEMOGLOBIN 9.4 g/dL (12.0-16.0); LYMPHOCYTES # (AUTO) 0.5 K/uL (2.5-16.5); LYMPHOCYTES % (AUTO) 2.5 % (20.5-51.1); MEAN CORPUSCULAR HEMOGLOBIN 30 pg (27-31); MEAN CORPUSCULAR HGB CONC 33 g/dL (33-37); MEAN CORPUSCULAR VOLUME 89.2 fL (80-94); MONOCYTES % (AUTO) 4.6 % (1.7-9.3); NEUTROPHILS # (AUTO) 19.7 K/uL (1.8-7.7); NEUTROPHILS % (AUTO) 92.8 % (42.2-75.2); PLATELET COUNT (AUTO) 257 K/uL (140-450); RED BLOOD CELL COUNT(AUTO) 3.17 MIL/uL (4.20-5.40); WHITE BLOOD COUNT (AUTO) 21.3 K/uL (4.8-10.8)
[2020-09-21 07:04] LABS: ALBUMIN 1.6 g/dL (3.4-5.0); ASPARTATE AMINOTRANSFERASE 63 U/L (15-37); CHLORIDE 99 mmol/L (98-107); CREATININE 3.5 mg/dL (0.6-1.3); GLUCOSE 92 mg/dL (74-106); MAGNESIUM 2.3 mg/dL (1.8-2.4); POTASSIUM 4.3 mmol/L (3.5-5.1); SODIUM SERUM 133 mmol/L (136-145); TOTAL BILIRUBIN 0.6 mg/dL (0.0-1.0); UREA NITROGEN, BLOOD 54 mg/dL (7-18)
--- NOTE | 2020-09-21 07:45 | NUR ---
RECEIVED REPORT FROM PAEDODONTIST NURSE. PATIENT IN CRITICAL CONDITION.
[2020-09-21] MEDS: NACL 0.9% 1,000 ML IV SCH ×2 (08:01→12:35)
[2020-09-21 08:24] LABS: ANION GAP 19.4 (8-16); CARBON DIOXIDE 18.9 mmol/L (21-32)
[2020-09-21] MEDS: FAMOTIDINE 20 MG/2 ML VIAL IVP SCH (09:42)
[2020-09-21] MEDS: VITAMIN D 400 IU TAB GT SCH (09:42)
[2020-09-21] MEDS: ASCORBIC ACID 500 MG/5 ML ORASYR GT SCH (09:42)
[2020-09-21] MEDS: DEXAMETHASONE 4 MG/ML VIAL IVP SCH (09:42)
[2020-09-21] MEDS: DILTIAZEM 30 MG TAB PO SCH ×3 (09:43→16:32)
--- NOTE | 2020-09-21 10:16 | NUR ---
SCHEDULED MEDICATIONS DUE GIVEN. WILL CONTINUE TO MONITOR.
[2020-09-21] MEDS: FOAM DRESSING TP SCH (12:45)
--- NOTE | 2020-09-21 12:45 | NUR ---
SCHEDULED MEDICATIONS DUE GIVEN. WILL CONTINUE TO MONITOR.
--- NOTE | 2020-09-21 14:05 | NUR ---
Paged wesley Walker. notified compo conveyor operator of critical results requested to notify
[2020-09-21] MEDS: fentaNYL citrate - 50mL vial 2.5 MG in NACL 0.9% 200 ML IV PRN (14:42)
[2020-09-21] MEDS ORDERED: SODIUM BICARBONATE 8.4% PFS 50 MEQ/50 ML SYR IVP SCH (14:46)
--- NOTE | 2020-09-21 16:13 | NUR ---
SCHEDULED MEDICATIONS DUE GIVEN. WILL CONTINUE TO MONITOR.
[2020-09-21] MEDS: AZITHROMYCIN 500 MG in DEXTROSE 5% 250 ML IV SCH (17:00)
--- NOTE | 2020-09-21 18:56 | NUR ---
HD COMPLETED. 2L OUT. WILL CONTINUE TO MONITOR.
--- NOTE | 2020-09-21 19:20 | NUR ---
GAVE REPORT TO MILLED RICE BROKER NURSE. PATIENT CONTINUES TO BE IN CRITICAL CONDITION.
--- NOTE | 2020-09-21 19:48 | NUR ---
RECEIVED REPORT FROM [facility] NURSE. PATIENT ETT TO VENT, INTUBATED AND SEDATED, RASS -3, RESTING AND CONTENT. HOB 30 DEGREES. VENT SETTINGS AC/PC, FIO2 95%, PEEP 10, RR 28. PATIENT TOLERATING CURRENT VENT SETTINGS WELL. OG TUBE, SECURED, IN PLACE, PATENT, WITH RESIDUALS OF 5 ML. PATIENT CONTINUOUSLY CARDIAC MONITORED, NORMAL SINUS ON THE MONITOR. IV ACCESS SITES ARE RIGHT UPPER ARM PICC LINE DOUBLE LUMEN, RIGHT FOREARM 20 G AND LEFT FOREARM 20 G. IV DRIPS CURRENTLY RUNNING ARE FENTANYL 2.5 MCG/KG/HR, PROPOFOL 50 MCG/KG/MIN, IVF AT 80 ML/HR, HEPARIN AT 710 UNITS/HR. PATIENT WEIGHT 79.8 KG. TOWNSEND CATH IN PLACE, PATENT AND SECURED TO PATIENT. SKINS INTACT, SOME PERINEAL REDNESS NOTED, LEFT AND RIGHT TOES SLANTED. PATIENT BED LOWERED AND LOCKED IN A POSITION OF SAFETY. PATIENT OFFLOADED FROM PRESSURE POINTS WITH USE OF PILLOWS AND REPOSITIONING. WILL CONTINUE TO CLOSELY MONITOR AND FREQUENTLY ROUND ON THE PATIENT THROUGHOUT THE SHIFT. Addendum: 09/21/20 at 2048 by Cesar Guillen RN RN RASS -2
--- NOTE | 2020-09-21 21:02 | NUR ---
PATIENT RESTING COMFORTABLY AND CONTENT, TOLERATING VENT SETTINGS WELL. NORMAL SINUS ON THE MONITOR. VAP ORAL CARE PROVIDED AND REPOSITIONING WITH USE OF PILLOWS. WILL CONTINUE TO MONITOR CLOSELY AND FREQUENTLY ROUND.
--- NOTE | 2020-09-21 21:22 | NUR ---
PT RECIEVED ON PC 15 +10, f28 W/ 7.5 ETT SECURED @ 23CM. FIO2 TITRATED TO 90% AND DIANA WELL. AMBU AT BEDSIDE & VENT PLUGGED INTO RED OUTLET WILL CONTINUE TO MONITOR
--- NOTE | 2020-09-21 21:32 | NUR ---
PER RT, PATIENT FIO2 TITRATED DOWN TO 90%, PATIENT TOLERATING NEW VENT SETTINGS WELL. WILL CONTINUE TO FREQUENTLY ROUND AND CLOSELY MONITOR.
--- NOTE | 2020-09-21 22:31 | NUR ---
PATIENT RESTING, CALM, AND CONTENT. PATIENT HOB IN 30 DEGREES, TOLERATING VENT SETTINGS WELL. WILL CONTINUE TO FREQUENTLY ROUND AND CLOSELY MONITOR.
[2020-09-22] VITALS (52 sets, daily range): BP systolic 102–196; BP diastolic 42–137
--- NOTE | 2020-09-22 00:15 | NUR ---
PATIENT PROVIDED VAP ORAL CARE, HYGIENE, AND REPOSITIONING. HOB AT 30 DEGREES. RT TITRATED DOWN ON FIO2 TO 80%, TOLERATING WELL. NORMAL SINUS ON THE MONITOR. RESTING CALMLY AND CONTENT. WILL CONTINUE TO CLOSELY MONITOR AND FREQUENTLY ROUND.
[2020-09-22] MEDS: NACL 0.9% 1,000 ML IV SCH ×3 (01:02→23:20)
[2020-09-22] MEDS: PROPOFOL 1000 MG/100 ML PREMIX 100 ML IV PRN ×6 (01:25→23:13)
--- NOTE | 2020-09-22 02:25 | NUR ---
PATIENT NORMAL SINUS ON THE MONITOR, ET TUBE/ORAL SUCTIONING, HYGIENE, REPOSITIONING PROVIDED. HOB AT 30 DEGREES, IN A POSITION OF COMFORT. PATIENT TOLERATING VENT SETTINGS WELL. WILL CONTINUE TO FREQUENTLY ROUND AND CLOSELY MONITOR.
[2020-09-22] MEDS: fentaNYL citrate - 50mL vial 2.5 MG in NACL 0.9% 200 ML IV PRN ×2 (04:16→18:12)
--- NOTE | 2020-09-22 04:48 | NUR ---
PATIENT TOLERATING VENT SETTINGS, VAP ORAL CARE, ORAL/ET TUBE SUCTIONING, HYGIENE, AND REPOSITIONING. POSITION OF COMFORT. PATIENT RESTING COMFORTABLY. NORMAL SINUS ON THE MONITOR. WILL CONTINUE TO MONITOR CLOSELY AND FREQUENTLY ROUND.
--- NOTE | 2020-09-22 06:00 | NUR ---
PATIENT RESTING COMFORTABLY IN BED, HOB 30 DEGREES, LINENS CHANGED, DRESSING CHANGED, BED BATH GIVEN. TOLERATING VENT SETTINGS WELL, WILL CONTINUE TO MONITOR CLOSELY AND FREQUENTLY ROUND.
[2020-09-22 07:05] LABS: CARBON DIOXIDE 21.8 mmol/L (21-32); CHLORIDE 100 mmol/L (98-107); CREATININE 2.8 mg/dL (0.6-1.3); GLUCOSE 84 mg/dL (74-106); POTASSIUM 3.8 mmol/L (3.5-5.1); SODIUM SERUM 136 mmol/L (136-145); UREA NITROGEN, BLOOD 47 mg/dL (7-18)
--- NOTE | 2020-09-22 07:20 | NUR ---
HANDOFF REPORT RECEIVED FROM PHILOSOPHY LECTURER NURSE. PATIENT ON ETT TO VENT, INTUBATED AND SEDATED, RASS -3, RESTING AND CALM. HOB AT 30 DEGREES. VENT SETTINGS AC/PC, FIO2 70%, PEEP 10, RR 28. TOLERATING WELL. ON OG TUBE FEEDING, IN PLACE, RUNNING AT 10 ML/HR. NO RESIDUAL AT THIS TIME. NORMAL SINUS ON THE MONITOR. IV ACCESS SITES ARE RIGHT UPPER ARM PICC LINE DOUBLE LUMEN, RIGHT FOREARM 20 G AND LEFT FOREARM 20 G. IV DRIPS CURRENTLY RUNNING ARE FENTANYL 2.5 MCG/KG/HR, PROPOFOL 50 MCG/KG/MIN, IVF AT 80 ML/HR, HEPARIN AT 710 UNITS/HR. TOWNSEND CATH IN PLACE, PATENT AND SECURED TO PATIENT. SKINS INTACT. WILL CONTINUE TO MONITOR.
--- NOTE | 2020-09-22 07:49 | NUR ---
RECEIVED ON A [employer] R860 VENTILATOR PLUGGED INTO RED OUTLET TOLERATING WELL WITHOUT ADVERSE REACTIONS NOTED TO AN ENDOTRACHEAL TUBE #7.5 SECURED AT 23cm TEETH/GUM LINE WITH AN ANCHOR FAST AMBU BAG AT BEDSIDE STABLE EQUAL CHEST RISE ENDOTRACHEAL SUCTION FOR LARGE THICK YELLOW SECRETIONS AIRWAY PATENT SATURATION 97% ON FIO2 OF 80% PEEP [id number] TITRATED FIO2 TO 70% ZANDER/RN NOTIFIED
[2020-09-22] MEDS: ASCORBIC ACID 500 MG/5 ML ORASYR GT SCH (09:19)
[2020-09-22] MEDS: DILTIAZEM 30 MG TAB PO SCH ×3 (09:20→16:30)
[2020-09-22] MEDS: DEXAMETHASONE 4 MG/ML VIAL IVP SCH (09:20)
[2020-09-22] MEDS: VITAMIN D 400 IU TAB GT SCH (09:20)
[2020-09-22] MEDS: FAMOTIDINE 20 MG/2 ML VIAL IVP SCH (09:20)
--- NOTE | 2020-09-22 09:59 | NUR ---
SEEN AND EXAMINED BY DR. SOSA. MADE AWARE PT'S ELEVATED RR. LEVO DRIP ON MAX. FENTANYL AT2.5 MCG/KG/HR. NO NEW ORDERS MADE. WILL CONTINUE TO MONITOR CLOSELY.
[2020-09-22] MEDS: hePARIN / DEXT 5% PREMIX 250 ML IV SCH (10:23)
--- NOTE | 2020-09-22 10:56 | NUR ---
HEPARIN DRIP INCREASED TO 860 UNITS/HR PER PROTOCOL. HEP 2200 UNITS BOLUS WAS GIVEN PER PROTOCOL. NO ACTIVE BLEEDING NOTED.
--- NOTE | 2020-09-22 11:45 | NUR ---
SEDATED RESTING COMFORTABLY GOOD CHEST RISE PATENT AIRWAY HEMODIALYSIS IN PROGRESS
--- NOTE | 2020-09-22 11:50 | NUR ---
HD STARTED. NO S/S OF DISTRESS. WILL CONTINUE TO MONITOR.
[2020-09-22] MEDS: FOAM DRESSING TP SCH (12:10)
--- NOTE | 2020-09-22 13:38 | NUR ---
SEDATED STABLE GOOD CHEST RISE ENDOTRACHEAL SUCTION FOR LARGE THICK TO SEMI THICK YELLOW SECRETIONS AIRWAY PATENT HEMODIALYSIS IN PROGRESS
--- NOTE | 2020-09-22 14:09 | NUR ---
HD DONE.PT IS STABLE. 3 LITERS OUT.
--- NOTE | 2020-09-22 15:36 | NUR ---
EQUAL CHEST RISE ENDOTRACHEAL SUCTION FOR MODERATE SEMI THICK YELLOW SECRETIONS AIRWAY PATENT SATURATION 100% ON FIO2 OF 70% PEEP [id number] TITRATED FIO2 TO 60% OTHER WOOD PROCESSING MACHINE OPERATOR TO NOTIFY RN
--- NOTE | 2020-09-22 16:00 | NUR ---
TF FEEDING RATE INCREASED TO 20 ML/HR. NO RESIDUAL NOTED. NO ABDOMINAL DISTENTION NOTED. KEPT HOB ELEVATED TO PREVENT FROM ASPIRATION.
--- NOTE | 2020-09-22 16:00 | NUR ---
FIO2 TITRATED FROM 70 % TO 60 %ON THE VENT SETTING. OBTAINED 94 TO 96 % O2 SAT. NO RESPIRATORY DISTRESS NOTED.
--- NOTE | 2020-09-22 17:00 | NUR ---
BED BATH GIVEN. TOLERATED WELL WITH TUBE FEEDING. NO RESIDUAL NOTED.
--- NOTE | 2020-09-22 18:40 | NUR ---
SEEN AND EXAMINED BY DR. SIMMONS. MADE AWARE PT'S HIGH BLOOD PRESSURE. NEW ORDERS MADE.
--- NOTE | 2020-09-22 19:30 | NUR ---
HANDOFF REPORT GIVEN TO TEACHER OF THE DEAF NURSE. POC REVIEWED AND DISCUSSED. PT IS STABLE.
--- NOTE | 2020-09-22 19:30 | NUR ---
[facility] PATIENT ETT TO VENT, TOLERATING VENT SETTINGS WELL, AC/PC, FIO2 80%, RR 28, AND PEEP 10. RASS -2. OG TUBE IN PLACE, PATENT AND SECURED. TUBE FEEDING RUNNING TWO MICHAEL HN AT 20 ML/HR, FWF AT 180/Q4, RESIDUALS 60ML. HOB AT 30 DEGREES AND IN A POSITION OF COMFORT. PATIENT ON CONTINUOUS TELE MONITOR, SINUS RHYTHM ON THE MONITOR. TOWNSEND CATH IN PLACE, SECURED AND PATENT. SKINS NON INTACT, SACRAL BLISTERS AND SOME PERINEAL REDNESS. IV ACCESS SITES INCLUDE RIGHT UPPER ARM PICC LINE DOUBLE LUMEN, LEFT FA 20 AND RIGHT FOREARM 20. IV DRIPS RUNNING INCLUDE HEPARIN AT 1010 UNITS/HR, FENTANYL 2.5 MCG/KG/HR, PROPOFOL AT 50 MCG/KG/MIN, AND NS AT 80 ML/HR. WEIGHT IS 80.5 KG. PATIENT IN A POSITION OF COMFORT, OFFLOADED FROM PRESSURE POINTS WITH USE OF PILLOWS AND REPOSITIONING. BED LOCKED AND LOWERED IN A POSITION OF SAFETY. WILL CONTINUE TO CLOSELY MONITOR AND FREQUENTLY ROUND THROUGHOUT SHIFT.
[2020-09-22] MEDS: CLONIDINE HYDROCHLORIDE 0.1 MG TAB PO SCH (21:00)
--- NOTE | 2020-09-22 21:00 | NUR ---
VAP ORAL CARE, HYGIENE, REPOSITIONING AND ET TUBE/ORAL SUCTIONING PROVIDED. HOB AT 30 DEGREES, TOLERATING VENT SETTINGS WELL. WILL CONTINUE TO CLOSELY MONITOR AND FREQUENTLY ROUND.
--- NOTE | 2020-09-22 23:34 | NUR ---
PATIENT RESTING COMFORTABLY AND IN A POSITION OF COMFORT. WILL CONTINUE TO CLOSELY MONITOR AND FREQUENTLY ROUND.
[2020-09-23] VITALS (24 sets, daily range): BP systolic 110–161; BP diastolic 49–99
--- NOTE | 2020-09-23 01:30 | NUR ---
VAP ORAL CARE, ET TUBE/ORAL SUCTIONING, HYGIENE AND REPOSITIONING PROVIDED. PATIENT HOB 30 DEGREES, INTUBATED AND SEDATED, TOLERATING VENT WELL. WILL CONTINUE TO CLOSELY MONITOR AND FREQUENTLY ROUND.
--- NOTE | 2020-09-23 03:30 | NUR ---
RESTING, INTUBATED AND SEDATED, IN A POSITION OF COMFORT, HOB 30 DEGREES, CONTINUING TO TOLERATE CURRENT VENT SETTINGS WELL. VAP ROAL CARE, ORAL/ET TUBE SUCTIONING AND REPOSITIONING. WILL CONTINUE TO MONITOR CLOSELY AND FREQUENTLY ROUND.
[2020-09-23] MEDS: PROPOFOL 1000 MG/100 ML PREMIX 100 ML IV PRN ×5 (03:45→21:11)
--- NOTE | 2020-09-23 05:30 | NUR ---
PATIENT HOB 30 DEGREES, CONTENT, TOLERATING SEDATION AND VENT SETTINGS WELL. ET TUBE/ORAL SUCTIONING, HYGIENE, AND REPOSITIONING PROVIDED. WILL CONTINUE TO MONITOR CLOSELY AND FREQUENTLY ROUND.
[2020-09-23 05:50] LABS: BASOPHILS % (AUTO) 0.4 % (0.0-2.0); EOSINOPHILS % (AUTO) 0.1 % (0.0-4.0); HEMATOCRIT 24.8 % (36-48); LYMPHOCYTES # (AUTO) 0.5 K/uL (2.5-16.5); LYMPHOCYTES % (AUTO) 3.9 % (20.5-51.1); MEAN CORPUSCULAR HEMOGLOBIN 29 pg (27-31); MEAN CORPUSCULAR HGB CONC 33 g/dL (33-37); MEAN CORPUSCULAR VOLUME 88.8 fL (80-94); MONOCYTES # (AUTO) 0.4 K/uL (0.8-1.0); MONOCYTES % (AUTO) 3.2 % (1.7-9.3); NEUTROPHILS % (AUTO) 92.4 % (42.2-75.2); PLATELET COUNT (AUTO) 254 K/uL (140-450); RED BLOOD CELL COUNT(AUTO) 2.79 MIL/uL (4.20-5.40); RED CELL DISTRIBUTION WIDTH 19.9 % (11.6-13.7)
[2020-09-23] MEDS: CLONIDINE HYDROCHLORIDE 0.1 MG TAB PO SCH ×6 (05:54→21:00)
[2020-09-23 06:07] LABS: HEPATITIS A ANTIBODY IGM Negative (Negative); HEPATITIS B CORE AB TOTAL Negative (Negative); HEPATITIS B SURFACE ANTIBODY Non Reactive (.); HEPATITIS B SURFACE ANTIGEN Negative (Negative)
[2020-09-23 06:19] LABS: HEMOGLOBIN 8.1 g/dL (12.0-16.0)
[2020-09-23 06:35] LABS: ALBUMIN 1.3 g/dL (3.4-5.0); ANION GAP 18.6 (8-16); ASPARTATE AMINOTRANSFERASE 47 U/L (15-37); CARBON DIOXIDE 19.5 mmol/L (21-32); CHLORIDE 101 mmol/L (98-107); CREATININE 2.6 mg/dL (0.6-1.3); GLUCOSE 117 mg/dL (74-106); POTASSIUM 4.1 mmol/L (3.5-5.1); SODIUM SERUM 135 mmol/L (136-145); TOTAL BILIRUBIN 0.5 mg/dL (0.0-1.0); UREA NITROGEN, BLOOD 45 mg/dL (7-18)
--- NOTE | 2020-09-23 08:00 | NUR ---
UPON BEDSIDE HANDOVER, PT APPEARS COMFORTABLE IN BED, BREATHING IN SYNCH WITH THE VENTILATOR. PT DOES NOT RESPOND TO VOICE, BUT DOES SEEM TO GRIMACE TO LIGHT PAIN. PT IS -3 RASS. OCCASIONALLY, PT BECOMES BRADYCARDIC IN HIGH 30S FOR AROUND 20 SECONDS, THEN RETURNS TO 50S OR 60S. CONSISTENT WITH PREVIOUS DETAIL SERGEANT. PT'S BLOOD PRESSURE SEEMS TO BE ASYMPTOMATIC WITH HR PT CONSISTENTLY IN ATRIAL FIBRILLATION
[2020-09-23] MEDS ORDERED: fentaNYL citrate 2.5 MG in NACL 0.9% 200 ML IV PRN (09:00)
[2020-09-23] MEDS: fentaNYL citrate 2.5 MG in NACL 0.9% 200 ML IV PRN ×2 (09:39→22:10)
[2020-09-23] MEDS: VITAMIN D 400 IU TAB GT SCH (09:48)
[2020-09-23] MEDS: ASCORBIC ACID 500 MG/5 ML ORASYR GT SCH (09:49)
[2020-09-23] MEDS: DEXAMETHASONE 4 MG/ML VIAL IVP SCH (09:49)
[2020-09-23] MEDS: FAMOTIDINE 20 MG/2 ML VIAL IVP SCH (09:50)
[2020-09-23] MEDS: DILTIAZEM 30 MG TAB PO SCH ×3 (09:51→17:45)
--- NOTE | 2020-09-23 12:00 | NUR ---
AFTER SPEAKING WITH DAUGHTER WITH ASSISTANCE OF MD REGARDING CODE STATUS, DAUGHTER WISHES FOR PT TO REMAIN FULL CODE. DAUGHTER AWARE THAT PT HAS "NEARLY A 30-40% CHANCE OF RECOVERY, PER MD" PT'S HR REMAINING IN 50S AND 60S ALTHOUGH STILL IN ATRIAL FIBRILLATION. WILL CONTINUE TO MONITOR AND ADMINISTER DILTIAZEM, ORAL PER SCHEDULE
[2020-09-23] MEDS: hePARIN / DEXT 5% PREMIX 250 ML IV SCH (12:28)
[2020-09-23] MEDS: FOAM DRESSING TP SCH (13:00)
[2020-09-23] MEDS: NACL 0.9% 1,000 ML IV SCH (14:35)
--- NOTE | 2020-09-23 15:50 | NUR ---
09/23/20 RD FOLLOW UP COMPLETED PLEASE REFER TO NUTRITION ASSESSMENT UNDER CARE ACTIVITY FOR ESTIMATED NUTRITIONAL NEEDS. 1. START AT 15 ML/HR AND INCREASE BY 15 ML/HR TOLERATED. GOAL: TWO MICHAEL HN @ 35 ML/HR, START AT 15 AND INCREASE -PROVIDES 840 ML OF VOLUME, 1680 KCAL, 70 GM OF PROTEIN 2. CONT. FREE WATER FLUSH OF 180 ML Q4H 3. CONT. VITAMIN C 1000 MG AND VITAMIN D [address] TO FOLLOW-UP 2-3 DAYS, HIGH RISK SHAUNNA BURCH RD
--- NOTE | 2020-09-23 16:00 | NUR ---
FREQUENTLY TURNING/SHIFTING IN BED TO PREVENT FURTHER SKIN BREAKDOWN TO COCCYX. LARGE, PINK, OPEN WOUND BED UNDER MEPILEX. WOUND CLEANSED AND DRESSING CHANGED. ASSESSED ALL BONY PROMINENCES FOR SHEARING AND PROTECTED WITH PILLOWS. PTS HR REMAINS IN HIGH 50S IN ATRIAL FIBRILLATION. CATAPRESS HELD DUE TO HR <60. PTS BP STILL ASYMPTOMATIC TO BRADYCARDIA. WILL CONTINUE TO MONITOR.
--- NOTE | 2020-09-23 19:30 | NUR ---
RECEIVED REPORT FROM [facility] NURSE. PATIENT ETT TO VENT, RASS -2, HOB 30 DEGREES, IN A POSITION OF COMFORT, TOLERATING VENT SETTINGS WELL. VENT SETTINGS ARE AC/PC, FIO2 70%, RR 28, PEEP 10. PATIENT HAS OG TUBE CONNECTED TO TUBE FEEDING, TWO MICHAEL HN, RUNNING AT 15 ML/HR, FWF 180 ML Q4. PATIENT CONNECTED TO CONTINUOUS TELE MONITOR, AFIB ON THE MONITOR, WILL CONTINUE TO MONITOR. IV ACCESS SITES ARE RIGHT UPPER ARM DOUBLE LUMEN PICC LINE, RIGHT FOREARM 20G AND LEFT FOREARM 20G. DRIPS CURRENTLY RUNNING ARE FENTANYL AT 2.5 MCG/KG/HR, PROPOFOL AT 50 MCG/KG/MIN, AND HEPARIN AT 1310 UNITS/HR. PATIENT WEIGHT IS 80.2KG. SKIN NON INTACT, SACRAL WOUND AND SOME PERINEAL REDNESS. TOWNSEND CATH IN PLACE, PATENT AND SECURED. PATIENT OFFLOADED FROM PRESSURE POINTS WITH US OF PILLOWS AND FREQUENT REPOSITIONING. BED LOCKED AND LOWERED, PATIENT IN A POSITION OF SAFETY AND COMFORT. WILL FREQUENTLY ROUND AND CLOSELY MONITOR THROUGHOUT THE SHIFT.
--- NOTE | 2020-09-23 20:00 | NUR ---
RT TITRATED VENT FIO2 TO 65%, PATIENT TOLERATING WELL, WILL CONTINUE TO MONITOR.
--- NOTE | 2020-09-23 21:51 | NUR ---
HOLDING CLONIDINE @2100 ON 09/23/2020, NOT GIVEN, DUE TO LOW HEART RATE, SINUS BRADYCARDIA.
--- NOTE | 2020-09-23 22:00 | NUR ---
RT TITRATED VENT SETTINGS FIO2 DOWN TO 60%, PATIENT TOLERATING WELL, WILL CONTINUE TO MONITOR.
--- NOTE | 2020-09-23 22:30 | NUR ---
VAP ORAL CARE, HYGIENE, ET TUBE/ORAL SUCTIONING PROVIDED. PATIENT TOLERATING CURRENT THERAPIES WELL. WILL CONTINUE TO FREQUENTLY ROUND AND CLOSELY MONITOR.
[2020-09-24] VITALS (49 sets, daily range): BP systolic 102–170; BP diastolic 46–85
--- NOTE | 2020-09-24 00:30 | NUR ---
PATIENT RESTING COMFORTABLY AND CONTENT, INTUBATED AND SEDATED, RASS -2. TOLERATING VENT SETTINGS WELL, ET TUBE PATENT AND MAINTAINABLE. WILL CONTINUE TO FREQUENTLY ROUND AND CLOSELY MONITOR.
[2020-09-24] MEDS: PROPOFOL 1000 MG/100 ML PREMIX 100 ML IV PRN ×4 (02:08→20:30)
--- NOTE | 2020-09-24 02:30 | NUR ---
VAP ORAL CARE, ET TUBE/ORAL SUCTIONING, HYGIENE, AND REPOSITIONING PROVIDED. PATIENT SEDATED AND SLEEPING, FLACC 0, RASS -2. TOLERATING VENT SETTINGS WELL. WILL CONTINUE TO FREQUENTLY ROUND AND CLOSELY MONITOR.
--- NOTE | 2020-09-24 03:30 | NUR ---
PATIENT RESTING CALMLY, INTUBATED AND SEDATED, RASS -2. TOLERATING VENT SETTINGS WELL. WILL CONTINUE TO FREQUENTLY ROUND AND CLOSELY MONITOR.
[2020-09-24 04:28] LABS: BASOPHILS # (AUTO) 0.1 K/uL (0.00-0.22); EOSINOPHILS % (AUTO) 0.2 % (0.0-4.0); HEMOGLOBIN 7.8 g/dL (12.0-16.0); LYMPHOCYTES # (AUTO) 0.6 K/uL (2.5-16.5); LYMPHOCYTES % (AUTO) 5.1 % (20.5-51.1); MEAN CORPUSCULAR HEMOGLOBIN 29 pg (27-31); MEAN CORPUSCULAR HGB CONC 32 g/dL (33-37); MEAN CORPUSCULAR VOLUME 89.3 fL (80-94); MONOCYTES # (AUTO) 0.5 K/uL (0.8-1.0); MONOCYTES % (AUTO) 4.2 % (1.7-9.3); NEUTROPHILS # (AUTO) 10.6 K/uL (1.8-7.7); NEUTROPHILS % (AUTO) 89.5 % (42.2-75.2); PLATELET COUNT (AUTO) 288 K/uL (140-450); RED BLOOD CELL COUNT(AUTO) 2.68 MIL/uL (4.20-5.40); RED CELL DISTRIBUTION WIDTH 19.6 % (11.6-13.7); WHITE BLOOD COUNT (AUTO) 11.9 K/uL (4.8-10.8)
--- NOTE | 2020-09-24 04:30 | NUR ---
VAP ORAL CARE, ET TUBE/ORAL SUCTIONING, HYGIENE AND REPOSITIONING PROVIDED. CONTINUES TO BE AFIB ON THE TELE MONITOR. WILL CONTINUE TO FREQUENTLY ROUND AND CLOSELY ROUND.
[2020-09-24 04:44] LABS: ANION GAP 15.5 (8-16); CARBON DIOXIDE 19.8 mmol/L (21-32); CHLORIDE 101 mmol/L (98-107); CREATININE 2.8 mg/dL (0.6-1.3); GLUCOSE 115 mg/dL (74-106); POTASSIUM 4.3 mmol/L (3.5-5.1); SODIUM SERUM 132 mmol/L (136-145)
--- NOTE | 2020-09-24 04:45 | NUR ---
LAB CALLED, CRITICAL VALUE OF BUN 63. APTT OF 65.2.
[2020-09-24 04:46] LABS: UREA NITROGEN, BLOOD 63 mg/dL (7-18)
--- NOTE | 2020-09-24 06:28 | NUR ---
PATIENT RASS -2, RESTING COMFORTABLY. GIVEN BED BATH, HYGIENE, REPOSITIONING, HOB 30 DEGREES, AND LINENS CHENGED. ET TUBE/ORAL SUCTIONING PROVIDED, TOLERATING VENT SETTINGS WELL. WILL CONTINUE TO FREQUENTLY ROUND AND CLOSELY MONITOR.
[2020-09-24] MEDS: DEXAMETHASONE 4 MG/ML VIAL IVP SCH (08:20)
[2020-09-24] MEDS: VITAMIN D 400 IU TAB GT SCH (08:20)
[2020-09-24] MEDS: ASCORBIC ACID 500 MG/5 ML ORASYR GT SCH (08:20)
[2020-09-24] MEDS: FAMOTIDINE 20 MG/2 ML VIAL IVP SCH (08:21)
[2020-09-24] MEDS: DILTIAZEM 30 MG TAB PO SCH ×3 (08:21→17:00)
[2020-09-24] MEDS ORDERED: hePARIN / DEXT 5% PREMIX 250 ML IV SCH (08:40)
[2020-09-24] MEDS: hePARIN / DEXT 5% PREMIX 250 ML IV SCH (09:49)
[2020-09-24] MEDS: FUROSEMIDE 40 MG/4 ML VIAL IVP SCH (09:53)
[2020-09-24] MEDS ORDERED: HEPARIN PER PHARMACY MC PRN (11:30)
[2020-09-24] MEDS: FOAM DRESSING TP SCH (13:00)
--- NOTE | 2020-09-24 13:02 | NUR ---
PT SATURATION 98% ON FIO2 50% AND PEEP +10. REDUCED PEEP TO +8. SATURATION REMAINS STABLE AT 95%. NO SIGNS OF RESPIRATORY DISTRESS. WILL CONTINUE TO MONITOR.
[2020-09-24] MEDS: fentaNYL citrate 2.5 MG in NACL 0.9% 200 ML IV PRN (13:24)
--- NOTE | 2020-09-24 19:19 | NUR ---
Received patient on propofol, fentanyl, and heparin IV drip. Remains on propofol and fentanyl max. Heparin increased to 170 units/hr with bolus given per pharmacy protocol. HD done today with 1.7L out. Tolerated well without any noted issues. Vitals remain stable. Spoke to patient son over phone and updated on patient condition. No issues at this time. No noted s/s pain, sob, or distress. On vent 50% fio2 with O2 sat 100%. Thick secretions noted upon suctioning both via ETT and oral. Patient stable at this time without any noted issues. Report given to JULIO RN.
--- NOTE | 2020-09-24 20:00 | NUR ---
RECEIVED REPORT FROM DAYSHIFT NURSE. DRY WEIGHT 80.2KG. PATIENT ETT TO VENT, RASS -2, A/C PC FIO2 50%, RATE 28, PEEP 8. COARSE CRACKLES NOTED UPON AUSCULTATION OF LUNGS. A-FIB NOTED ON MONITOR, S1S2 NOTED. PT HAS KALEY PICC LINE RUNNING: PROPOFOL 50MCG/KG/MIN, FENTANYL 2.5 MCG/KG/MIN AND HEPARIN 1760 UNIT/HR, ASYMPTOMATIC, AND PATENT. RT FA 20G AND LT FA 20G BOTH ASYMPTOMATIC, PATENT AND SALINE LOCKED. RT IJ RUPA CATH WITH PIGTAIL FOR HD. BOWEL SOUNDS ACTIVE IN ALL 4 QUADRANTS, OG TUBE TO IN PLACE, AUSCULTATED PLACEMENT AND RESIDUAL 0ML. OG-TUBE TO FEED RUNNING 15ML/HR WITH A GOAL OF 35ML/HR, FWF: 180ML Q 4HR. TOWNSEND CATH IN PLACE DRAINING TO GRAVITY. SKIN NON INTACT, SACRAL WOUND AND SOME PERINEAL REDNESS NOTED. PATIENT OFFLOADED FROM PRESSURE POINTS WITH USE OF PILLOWS AND FREQUENT REPOSITIONING. BED LOW AND LOCKED, SAFETY MEASURES IN PLACE, WILL FREQUENTLY ROUND AND CLOSELY MONITOR THROUGHOUT THE SHIFT.
--- NOTE | 2020-09-24 21:00 | NUR ---
PTS GASTRIC RESIDUAL: 0ML. INCREASED FEEDING TO 25ML/HR, WILL CONT TO ASSESS
--- NOTE | 2020-09-24 21:30 | NUR ---
LAB AT BEDSIDE, FOR PTT LAB DRAW. LAB UNSUCCESSFUL, AWAITING OTHER LAB PERSONNEL TO DRAW BLOOD.
--- NOTE | 2020-09-24 22:00 | NUR ---
TURNED AND REPOSITIONED PT, PT TOLERATED IT WELL. SAFETY MEASURES IN PLACE. WILL CONT TO MONITOR.
--- NOTE | 2020-09-24 22:10 | NUR ---
OTHER LAB PERSONNEL AT BEDSIDE FOR BLOOD DRAW. SUCCESSFUL. AWAITING RESULTS FOR PTT.
[2020-09-25] VITALS (53 sets, daily range): BP systolic 83–177; BP diastolic 43–83
--- NOTE | 2020-09-25 | NUR ---
VAP ORAL CARE GIVEN, TURNED AND REPOSITIONED PT, PT TOLERATED IT WELL. SAFETY MEASURES IN PLACE. BED LOW AND LOCKED, SIDE RAILS UP, CALL LIGHT WITHIN REACH. WILL CONT TO MONITOR.
--- NOTE | 2020-09-25 00:15 | NUR ---
RECEIVED PTs LATEST PTT: 29.8, PER MD ORDER, GAVE A BOLUS OF HEPARIN 4400 UNITS AND INCREASED HEPARIN DRIP RATE TO 2060 UNITS/HR. ORDERED NEW PTT LAB DRAW FOR 629. WILL CONT TO ASSESS.
[2020-09-25] MEDS: PROPOFOL 1000 MG/100 ML PREMIX 100 ML IV PRN ×5 (01:38→18:22)
--- NOTE | 2020-09-25 02:00 | NUR ---
NO S/S OF DISTRESS NOTED. WILL CONT TO ASSESS
[2020-09-25] MEDS: fentaNYL citrate 2.5 MG in NACL 0.9% 200 ML IV PRN ×2 (02:34→15:50)
--- NOTE | 2020-09-25 04:00 | NUR ---
PT TEMP 100.2, COOLING MEASURES IN PLACE. MORNING CARE ROUTINE GIVEN. CHG BATH, TOWNSEND CARE, VAP ORAL CARE, CLEAN LINEN
--- NOTE | 2020-09-25 05:00 | NUR ---
PT LATEST TEMP 101.1F. ADMINISTERED TYLENOL PER MD ORDER AT 0515. WILL REASSESS. COOLING MEASURES STILL IN PLACE
[2020-09-25] MEDS: ACETAMINOPHEN 325 MG TAB PO PRN (05:15)
[2020-09-25] MEDS: CLONIDINE HYDROCHLORIDE 0.1 MG TAB PO SCH ×3 (05:24→22:49)
[2020-09-25] MEDS: hePARIN / DEXT 5% PREMIX 250 ML IV SCH ×2 (05:54→18:25)
--- NOTE | 2020-09-25 06:00 | NUR ---
PTs LATEST TEMP 99.8F, COOLING MEASURES IN PLACE, WILL CONT TO MONITOR
--- NOTE | 2020-09-25 06:50 | NUR ---
LAB AT BEDSIDE FOR PTT LAB DRAW. PTs LATEST TEMP 99.7F, COOLING MEASURES IN PLACE. WILL CONT TO ASSESS
[2020-09-25 07:00] LABS: BASOPHILS # (AUTO) 0.1 K/uL (0.00-0.22); BASOPHILS % (AUTO) 0.7 % (0.0-2.0); EOSINOPHILS # (AUTO) 0.1 K/uL (0-0.4); HEMATOCRIT 26.1 % (36-48); HEMOGLOBIN 8.5 g/dL (12.0-16.0); LYMPHOCYTES # (AUTO) 0.7 K/uL (2.5-16.5); LYMPHOCYTES % (AUTO) 4.6 % (20.5-51.1); MEAN CORPUSCULAR HEMOGLOBIN 29 pg (27-31); MEAN CORPUSCULAR HGB CONC 32 g/dL (33-37); MEAN CORPUSCULAR VOLUME 88.9 fL (80-94); MONOCYTES # (AUTO) 0.5 K/uL (0.8-1.0); MONOCYTES % (AUTO) 3.5 % (1.7-9.3); NEUTROPHILS % (AUTO) 90.2 % (42.2-75.2); PLATELET COUNT (AUTO) 311 K/uL (140-450); RED BLOOD CELL COUNT(AUTO) 2.94 MIL/uL (4.20-5.40); RED CELL DISTRIBUTION WIDTH 19.3 % (11.6-13.7); WHITE BLOOD COUNT (AUTO) 14.4 K/uL (4.8-10.8)
[2020-09-25 07:11] LABS: ANION GAP 19.3 (8-16); CARBON DIOXIDE 23.7 mmol/L (21-32); CHLORIDE 101 mmol/L (98-107); CREATININE 2.5 mg/dL (0.6-1.3); GLUCOSE 128 mg/dL (74-106); SODIUM SERUM 140 mmol/L (136-145); UREA NITROGEN, BLOOD 55 mg/dL (7-18)
--- NOTE | 2020-09-25 07:49 | NUR ---
RECEIVED PATIENT ON PROPOFOL AT 45, FENATNYL AT 2.5, AND HEPARIN AT 2060 UNITS PER HOUR. WAITING FOR PTT RESULT AT THIS TIME. TEMP 99.2, COOLING MEASRUES ALREADY IN PLACE. PATIENT SUCTIONED WITH LARGE AMOUNT THICK [place] SECRETIONS VIA ETT. ON TF AT 35 ML/HR WITHOUT ANY NOTED RESIDUALS. PATIENT HR 114 AFIB AND RR AT 31 AND O2 SAT 91%. AT THIS TIME PROPOFOL INCREASED TO 50. BP STABLE AT THIS TIME 124/45. WILL CONTINUE TO MONITOR.
[2020-09-25] MEDS: VITAMIN D 400 IU TAB GT SCH (08:37)
[2020-09-25] MEDS: FUROSEMIDE 40 MG/4 ML VIAL IVP SCH (08:38)
[2020-09-25] MEDS: ASCORBIC ACID 500 MG/5 ML ORASYR GT SCH (08:38)
[2020-09-25] MEDS: FAMOTIDINE 20 MG/2 ML VIAL IVP SCH (08:38)
[2020-09-25] MEDS: DEXAMETHASONE 4 MG/ML VIAL IVP SCH (08:39)
[2020-09-25] MEDS: DILTIAZEM 30 MG TAB PO SCH ×3 (09:00→17:00)
--- NOTE | 2020-09-25 09:00 | NUR ---
DR. SOSA SAW PATIENT AT BEDSIDE. UPDATED ON CURRENT PATIENT CONDITION. PATIENT TACHYPNEIC ON MAX DOSE PROPOFOL. MD AWARE. REMAINS AFIB CONTROLLED HR IN THE 90S. BP STABLE. ON FIO2 60% O2 SAT 90S AND ABOVE. WILL CONTINUE TO MONITOR AND ATTEND TO PATIENT NEEDS.
--- NOTE | 2020-09-25 13:01 | NUR ---
PATIENT SEEN BY DR. CHINO. UPDATED ON CURRENT PATIENT CONDITION. STATED WILL HOLD DIALYSIS AT THIS TIME. WILL CONTINUE TO MONITOR AND ATTEND TO PATIENT NEEDS.
[2020-09-25] MEDS: FOAM DRESSING TP SCH (13:03)
--- NOTE | 2020-09-25 19:30 | NUR ---
RECEIVED REPORT FROM DAY SHIFT PATIENT IS ORALLY VENTED AND SEDATED WITH PROPOFOL AT 30 MCG/KG/MIN AND FENTANYL AT 2.5 MCG/KG/HR,AND HEPARIN IS INFUSING AT 15267IPTCB/HR ALL INFUSING THRU HIS RIGHT UPPER ARM PICC LINEPATINT IS IN ATRIAL FIB.VENT SETTING IS ACPCRATE OF 28,60% FIO2,PEEP OF 8 PATIENT IS TACHYPNEIC AND MAINTAIN SATURATION ABOVE 95% WITH CURRENT VENT SETTING.PATIENT IS ON CONTINOUS FEEDING WITH TWOCAL HN AT 35CC/HR.
--- NOTE | 2020-09-25 19:32 | NUR ---
END OF SHIFT PATIENT STABLE WITHOUT ANY NOTED S/S PAIN SOB OR DISTRESS. REMAINS ON PROPOFOL AT 30 AT THIS TIME. PATIENT AFIB THROUGHOUT THE DAY, CONTROLLED. REMAINS ON OGT FEEDING WITHOUT ANY SIGNIFICANT RESIDUALS NOTED. PATIENT TOLERATING. PATIENT ON FENTANYL. AFEBRILE AT THIS TIME. REPORT GIVEN TO JULIO OSUNA.
--- NOTE | 2020-09-25 20:09 | NUR ---
RECEIVED PATIENT FROM AM SHIFT. PATIENT WAS SEEN AND ASSESSED. FOUND PT IN SUPINE POSITION. PATIENT IS INTUBATED WITH ETT SIZE 7.5 AND SECURED WITH BITTING BLOCK ANCHOR-FAST AT 23cm. PATIENT IS ON VENT SETTINGS: AC/PC 20, RR 28, PEEP 8, FiO2 60% WITH SPO2 OF 92s%. AMBU BAG AT BEDSIDE. VENT IS PLUGGED IN RED OUTLET. ALARMS SET AND AUDIBLE TO ENVIRONMENT. SUCTIONED NONE TO SCANT AMOUNT OF WHITE SECRETIONS FROM ETT. AIRWAY IS PATENT. AUSCULTATION REVEALS BILATERAL COARSE CRACKLES BREATH SOUNDS THROUGHOUT. PATIENT IS IN NO APPARENT RESPIRATORY DISTRESS AT THIS TIME. WILL CONTINUE TO MONITOR PATIENT.
[2020-09-26] VITALS (25 sets, daily range): BP systolic 91–154; BP diastolic 3–79
--- NOTE | 2020-09-26 | NUR ---
PATIENT GETS TACHYPNEIC AND O2 SAT BECOMES LABILE DUE TO POSITIONING.PATIENT REMAIN ATRIAL FIB.BLOOD PRESSURE REMAIN STABLE CONTINUE TO TOLERATE FEEDING
[2020-09-26] MEDS: PROPOFOL 1000 MG/100 ML PREMIX 100 ML IV PRN ×2 (01:39→08:49)
[2020-09-26] MEDS: ACETAMINOPHEN 325 MG TAB PO PRN ×2 (04:18→13:09)
[2020-09-26] MEDS: fentaNYL citrate 2.5 MG in NACL 0.9% 200 ML IV PRN ×2 (05:11→18:57)
[2020-09-26] MEDS: hePARIN / DEXT 5% PREMIX 250 ML IV SCH ×4 (06:35→23:58)
--- NOTE | 2020-09-26 06:39 | NUR ---
REMAIN ON SAME VENT SETTING,NO DISTRESS OBSERVED REMAIN IN ATRIAL FIB,STILL TACHYPNEIIC.
[2020-09-26] MEDS: CLONIDINE HYDROCHLORIDE 0.1 MG TAB PO SCH ×3 (07:00→21:00)
--- NOTE | 2020-09-26 08:07 | NUR ---
RECEIVED BEDSIDE REPORT FROM NIGHT NURSE. PT LYING ON L SIDE WITH NO ACUTE SIGNS DISTRESS. PT IS IN A FIB IN 110S, BREATHING IN 30S, SATTING IN HIGH 90S ON 50% FIO2. EXTREMITIES FEEL COLD. PULSE IRREGULAR AND THREADY. SEVERE SCLERAL AND LOWER EXTREMITY EDEMA PRESENT. TUBE FEEDS INFUSING AND PT TOLERATING. WILL CONTINUE TO MONITOR AND ASSESS.
[2020-09-26] MEDS: DILTIAZEM 30 MG TAB PO SCH ×3 (08:19→17:52)
[2020-09-26] MEDS: ASCORBIC ACID 500 MG/5 ML ORASYR GT SCH (08:19)
[2020-09-26] MEDS: FAMOTIDINE 20 MG/2 ML VIAL IVP SCH (08:20)
[2020-09-26] MEDS: DEXAMETHASONE 4 MG/ML VIAL IVP SCH (08:21)
[2020-09-26] MEDS: VITAMIN D 400 IU TAB GT SCH (08:58)
[2020-09-26] MEDS: FUROSEMIDE 40 MG/4 ML VIAL IVP SCH (09:11)
--- NOTE | 2020-09-26 10:44 | NUR ---
PT TOLERATING VENTILATOR. EXTREMITIES COLD, APPLIED HEEL PROTECTIVE BOOTS AND WRAPPED EXTREMITIES IN WARM BLANKETS. NO SIGNS OF FURTHER SKIN BREAKDOWN. WILL CONTINUE TO MONITOR AND ASSESS PATIENT.
[2020-09-26 11:45] LABS: ANION GAP 19.4 (8-16); CHLORIDE 101 mmol/L (98-107); CREATININE 2.2 mg/dL (0.6-1.3); GLUCOSE 167 mg/dL (74-106); POTASSIUM 4.4 mmol/L (3.5-5.1); SODIUM SERUM 138 mmol/L (136-145)
[2020-09-26 12:11] LABS: UREA NITROGEN, BLOOD 63 mg/dL (7-18)
[2020-09-26] MEDS: FOAM DRESSING TP SCH (13:10)
--- NOTE | 2020-09-26 13:30 | NUR ---
09/26/20 RD FOLLOW UP COMPLETED PLEASE REFER TO NUTRITION ASSESSMENT UNDER CARE ACTIVITY FOR ESTIMATED NUTRITIONAL NEEDS. 1. CONT. TWO MICHAEL HN @ 35 ML/HR X 24 HR -PROVIDES 840 ML OF VOLUME, 1680 KCAL, 70 GM OF PROTEIN 2. RECOMMEND FREE WATER FLUSH OF [address] TO FOLLOW-UP 2-3 DAYS, HIGH RISK SHAUNNA BURCH, RD
--- NOTE | 2020-09-26 14:17 | NUR ---
NOTIFIED DR CHINO OF INCREASE IN BUN FROM 55 TO 63. WELL CREATININE TO 2.2 AND ELECTROLYTE PANEL STABLE. REPORTED THAT PT HAD BEEN MAKING ABOUT 800 CC URINE/SHIFT WITH DAILY DOSE OF LASIX. REPORTED THAT DILAYSIS WILL BE HELD FOR TODAY. WILL CONTINUE TO MONITOR.
--- NOTE | 2020-09-26 16:00 | NUR ---
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 BOTH WOUNDS ON BUTTOCKS PARTIAL THICKNESS, AND BLISTERED, AROUND THE SIZE OF A QUARTER. WOUNDS CLEANSED AND DRESSING CHANGED. MINIMAL SEROUS DRAINAGE PRESENT. WOC NURSE REQUESTING HYDROCOLLOID DRESSINGS TO BE STARTED TOMORROW.
--- NOTE | 2020-09-26 16:16 | NUR ---
WOUND CARE RE-EVALUATION NOTE: SKIN ASSESSMENT DONE WITH PRIMARY RN, SACRALCOCCYX AND BUTTOCKS PREVIOUS MULTIPLE PIN POINTS BLISTERS TODAY'S ASSESSMENT THERE ARE 2 AREAS OF PARTIAL THICKNESS SKIN LOSS WITH SUPERFICIAL DEPTH, LARGEST APPROXIMATELY 2X3 CM, WOUND BED IS 100% GRANULATING SKIN, MARY WOUND SKIN WRINKLING AND MOIST, NO ODOR. UNABLE TO OBTAIN WOUND PHOTO AND MEASURE DUE TO PT. DESAT QUICKLY TO 85% WHEN TURN AND REPOSITION. FOAM DRESSING APPLY, POC DISCUSSED WITH PRIMARY RN. RECOMMENDATION: -CLEANSE SACRALCOCCYX AND BUTTOCKS WOUNDS WITH NS, PAT DRY, APPLY HYDROCOLLOID DRESSING CHANGE EVERY 3 DAYS AND PRN IF SOILING -CHECK HYDROCOLLOID DRESSING PLACEMENT BIDWC, REPLACE IF NEEDED
--- NOTE | 2020-09-26 19:30 | NUR ---
received report from [facility] patient is orally vented on acpc mode rate of 28 with fio2 30% peep of 7 vt 400 ,patient is sedated with fentantl at 2.5mcg/kg/hr,propofol at 30 mcg/kg/min.patient is tachypneic ,patient is in atrial fib controlled rate patient is on heparin drip at 1910 units/hr all iv are infusing thru her right upper arm picc line.patient is tachypneic with respiratory rate 35-38/min.ogt in place on continous feeding with hn at 45cc/hr and water flush . repositioned patient kept head of bed elevated. patient is tolerating feeding at this time.
[2020-09-27] VITALS (31 sets, daily range): BP systolic 87–163; BP diastolic 42–84
--- NOTE | 2020-09-27 | NUR ---
patient remain in atrial fib,patient has episode of going bradybut it is not sustained patient picked up at once .patient is tolerating her feeding well.
[2020-09-27] MEDS: HYDROCOLLOID DRESSING TP SCH ×3 (01:00→13:00)
--- NOTE | 2020-09-27 04:30 | NUR ---
PATIENT HAD VERY LARGE AMOUNT OF COFFEEE GROUND WATERY STOOL REQUIRING COMPLETE LINENS CHANGE,FLEXISEAL APPLIED.COMPLETE BATH AND COMPLETE LINEN CHANGE.. HEPARIN DRIP TURNED OFF
[2020-09-27] MEDS: CLONIDINE HYDROCHLORIDE 0.1 MG TAB PO SCH ×3 (05:00→21:00)
[2020-09-27] MEDS: PROPOFOL 1000 MG/100 ML PREMIX 100 ML IV PRN ×2 (05:30→12:06)
--- NOTE | 2020-09-27 06:15 | NUR ---
NOTIFIED DR HOWE OF THE [place] COLORED STOOL DR HOWE W/ ORDER TO HOLD HEPARIN AND FEEDING.
[2020-09-27 06:24] LABS: BASOPHILS # (AUTO) 0.1 K/uL (0.00-0.22); BASOPHILS % (AUTO) 0.3 % (0.0-2.0); EOSINOPHILS # (AUTO) 0.1 K/uL (0-0.4); EOSINOPHILS % (AUTO) 0.2 % (0.0-4.0); LYMPHOCYTES # (AUTO) 1.3 K/uL (2.5-16.5); LYMPHOCYTES % (AUTO) 5.3 % (20.5-51.1); MEAN CORPUSCULAR HEMOGLOBIN 27 pg (27-31); MEAN CORPUSCULAR HGB CONC 30 g/dL (33-37); MEAN CORPUSCULAR VOLUME 89.3 fL (80-94); MONOCYTES # (AUTO) 0.7 K/uL (0.8-1.0); MONOCYTES % (AUTO) 2.9 % (1.7-9.3); NEUTROPHILS # (AUTO) 22.2 K/uL (1.8-7.7); NEUTROPHILS % (AUTO) 91.3 % (42.2-75.2); PLATELET COUNT (AUTO) 275 K/uL (140-450); RED BLOOD CELL COUNT(AUTO) 0.96 MIL/uL (4.20-5.40); RED CELL DISTRIBUTION WIDTH 20.5 % (11.6-13.7); WHITE BLOOD COUNT (AUTO) 24.3 K/uL (4.8-10.8)
[2020-09-27 06:29] LABS: ALBUMIN 1.1 g/dL (3.4-5.0); ANION GAP 14.7 (8-16); ASPARTATE AMINOTRANSFERASE 24 U/L (15-37); CARBON DIOXIDE 24.8 mmol/L (21-32); CHLORIDE 102 mmol/L (98-107); CREATININE 2.1 mg/dL (0.6-1.3); GLUCOSE 117 mg/dL (74-106); POTASSIUM 4.5 mmol/L (3.5-5.1); SODIUM SERUM 137 mmol/L (136-145); TOTAL BILIRUBIN 0.5 mg/dL (0.0-1.0)
[2020-09-27 06:32] LABS: UREA NITROGEN, BLOOD 76 mg/dL (7-18)
[2020-09-27 06:47] LABS: HEMATOCRIT 8.6 % (36-48); HEMOGLOBIN 2.6 g/dL (12.0-16.0)
[2020-09-27 07:14] LABS: HEMATOCRIT 23.9 % (36-48); HEMOGLOBIN 8.1 g/dL (12.0-16.0); MEAN CORPUSCULAR HEMOGLOBIN 30 pg (27-31); MEAN CORPUSCULAR HGB CONC 34 g/dL (33-37); MEAN CORPUSCULAR VOLUME 88.5 fL (80-94); PLATELET COUNT (AUTO) 281 K/uL (140-450); RED CELL DISTRIBUTION WIDTH 19.5 % (11.6-13.7); WHITE BLOOD COUNT (AUTO) 19.1 K/uL (4.8-10.8)
[2020-09-27] MEDS: fentaNYL citrate 2.5 MG in NACL 0.9% 200 ML IV PRN ×2 (09:32→22:36)
[2020-09-27] MEDS: VITAMIN D 400 IU TAB GT SCH (09:45)
[2020-09-27] MEDS: ASCORBIC ACID 500 MG/5 ML ORASYR GT SCH (09:45)
[2020-09-27] MEDS: FUROSEMIDE 40 MG/4 ML VIAL IVP SCH (09:46)
[2020-09-27] MEDS: FAMOTIDINE 20 MG/2 ML VIAL IVP SCH (09:46)
[2020-09-27] MEDS: DEXAMETHASONE 4 MG/ML VIAL IVP SCH (09:48)
[2020-09-27] MEDS: DILTIAZEM 30 MG TAB PO SCH ×3 (09:49→16:41)
[2020-09-27 10:46] LABS: LYMPHOCYTES % (MANUAL) 6 % (20-46); MONOCYTES % (MANUAL) 6 % (5-12)
[2020-09-27] MEDS: FOAM DRESSING TP SCH (13:00)
--- NOTE | 2020-09-27 19:30 | NUR ---
RECEIVED REPORT FROM [facility] PATIENT IS ORALLY VENTED AND SEDATED WITH PROPOFOL AND FENTANYL.PATIENT IS ONM ACPC MODE RATE OF 28 WITH 55% FIO2 AND PATIENT IS SATURATING 95%.PATIENT IS ON ATRIAL FICONTROLLED RATE.ON CONTINOUS FEEDING EITH HN2 MICHAEL AT 45CC/HR WITH WATER FLUSH PATIENT IS TOLERATING FEEFEEDING WELL.TOWNSEND CATH IN PLACE URINE OUTPUT IS GOOD.PATIENT ALSO HAS FLEXISEZAL WITH DARK BROWN STOOL
--- NOTE | 2020-09-27 20:59 | NUR ---
RESTING COMFORTABLY GOOD CHEST RISE ENDOTRACHEAL TUBE SUCTION FOR LARGE THIN YELLOW SECRETIONS AIRWAY PATENT SATURATION 97% ON FIO2 55% PEEP 7cmH2O TITRATED FIO2 50% CHIN/RN NOTIFIED
[2020-09-28] VITALS (27 sets, daily range): BP systolic 98–137; BP diastolic 52–97
[2020-09-28] MEDS: PROPOFOL 1000 MG/100 ML PREMIX 100 ML IV PRN ×4 (00:47→21:14)
[2020-09-28] MEDS: HYDROCOLLOID DRESSING TP SCH ×2 (01:00→13:00)
[2020-09-28] MEDS: ACETAMINOPHEN 325 MG TAB PO PRN (01:19)
[2020-09-28] MEDS: CLONIDINE HYDROCHLORIDE 0.1 MG TAB PO SCH ×3 (05:00→21:19)
[2020-09-28 06:21] LABS: EOSINOPHILS # (AUTO) 0.2 K/uL (0-0.4); EOSINOPHILS % (AUTO) 2.6 % (0.0-4.0); HEMOGLOBIN 9.5 g/dL (12.0-16.0); LYMPHOCYTES # (AUTO) 0.6 K/uL (2.5-16.5); MEAN CORPUSCULAR HEMOGLOBIN 30 pg (27-31); MEAN CORPUSCULAR HGB CONC 33 g/dL (33-37); MEAN CORPUSCULAR VOLUME 90.1 fL (80-94); MONOCYTES # (AUTO) 0.5 K/uL (0.8-1.0); MONOCYTES % (AUTO) 5.3 % (1.7-9.3); NEUTROPHILS # (AUTO) 7.9 K/uL (1.8-7.7); PLATELET COUNT (AUTO) 206 K/uL (140-450); RED BLOOD CELL COUNT(AUTO) 3.22 MIL/uL (4.20-5.40); RED CELL DISTRIBUTION WIDTH 19.7 % (11.6-13.7); WHITE BLOOD COUNT (AUTO) 9.2 K/uL (4.8-10.8)
[2020-09-28 06:49] LABS: ALBUMIN 1.1 g/dL (3.4-5.0); ANION GAP 12.9 (8-16); ASPARTATE AMINOTRANSFERASE 26 U/L (15-37); CARBON DIOXIDE 24.8 mmol/L (21-32); CHLORIDE 105 mmol/L (98-107); CREATININE 1.7 mg/dL (0.6-1.3); GLUCOSE 126 mg/dL (74-106); POTASSIUM 3.7 mmol/L (3.5-5.1); SODIUM SERUM 139 mmol/L (136-145); TOTAL BILIRUBIN 0.5 mg/dL (0.0-1.0)
[2020-09-28 06:54] LABS: UREA NITROGEN, BLOOD 72 mg/dL (7-18)
[2020-09-28 07:15] LABS: LYMPHOCYTES % (AUTO) 6.4 % (20.5-51.1); NEUTROPHILS % (AUTO) 85.7 % (42.2-75.2)
[2020-09-28] MEDS: DEXAMETHASONE 4 MG/ML VIAL IVP SCH (09:00)
[2020-09-28] MEDS: VITAMIN D 400 IU TAB GT SCH (09:19)
[2020-09-28] MEDS: ASCORBIC ACID 500 MG/5 ML ORASYR GT SCH (09:19)
[2020-09-28] MEDS: DILTIAZEM 30 MG TAB PO SCH ×3 (09:20→16:40)
[2020-09-28] MEDS: FAMOTIDINE 20 MG/2 ML VIAL IVP SCH (09:20)
[2020-09-28] MEDS: FUROSEMIDE 40 MG/4 ML VIAL IVP SCH (09:20)
[2020-09-28] MEDS: FOAM DRESSING TP SCH (13:00)
[2020-09-28] MEDS: fentaNYL citrate 2.5 MG in NACL 0.9% 200 ML IV PRN ×2 (14:23→23:53)
[2020-09-29] VITALS (27 sets, daily range): BP systolic 99–147; BP diastolic 53–87
[2020-09-29] MEDS: HYDROCOLLOID DRESSING TP SCH ×3 (01:00→13:00)
[2020-09-29] MEDS: CLONIDINE HYDROCHLORIDE 0.1 MG TAB PO SCH ×3 (05:29→22:34)
[2020-09-29 07:01] LABS: ALBUMIN 1.2 g/dL (3.4-5.0); ANION GAP 14.9 (8-16); ASPARTATE AMINOTRANSFERASE 29 U/L (15-37); CHLORIDE 109 mmol/L (98-107); CREATININE 1.4 mg/dL (0.6-1.3); GLUCOSE 138 mg/dL (74-106); POTASSIUM 3.9 mmol/L (3.5-5.1); SODIUM SERUM 146 mmol/L (136-145); TOTAL BILIRUBIN 0.4 mg/dL (0.0-1.0)
[2020-09-29] MEDS: PROPOFOL 1000 MG/100 ML PREMIX 100 ML IV PRN ×2 (07:03→16:43)
[2020-09-29 07:06] LABS: UREA NITROGEN, BLOOD 62 mg/dL (7-18)
[2020-09-29 08:24] LABS: BASOPHILS # (AUTO) 0.1 K/uL (0.00-0.22); BASOPHILS % (AUTO) 0.8 % (0.0-2.0); EOSINOPHILS # (AUTO) 0.1 K/uL (0-0.4); EOSINOPHILS % (AUTO) 0.8 % (0.0-4.0); HEMATOCRIT 21.8 % (36-48); LYMPHOCYTES % (AUTO) 7.1 % (20.5-51.1); MEAN CORPUSCULAR HEMOGLOBIN 29 pg (27-31); MEAN CORPUSCULAR HGB CONC 32 g/dL (33-37); MEAN CORPUSCULAR VOLUME 91.1 fL (80-94); MONOCYTES # (AUTO) 0.9 K/uL (0.8-1.0); NEUTROPHILS # (AUTO) 12.3 K/uL (1.8-7.7); NEUTROPHILS % (AUTO) 85.3 % (42.2-75.2); PLATELET COUNT (AUTO) 195 K/uL (140-450); RED BLOOD CELL COUNT(AUTO) 2.39 MIL/uL (4.20-5.40); RED CELL DISTRIBUTION WIDTH 19.1 % (11.6-13.7); WHITE BLOOD COUNT (AUTO) 14.4 K/uL (4.8-10.8)
[2020-09-29] MEDS: ASCORBIC ACID 500 MG/5 ML ORASYR GT SCH (09:47)
[2020-09-29] MEDS: VITAMIN D 400 IU TAB GT SCH (09:47)
[2020-09-29] MEDS: FUROSEMIDE 40 MG/4 ML VIAL IVP SCH (09:48)
[2020-09-29] MEDS: DILTIAZEM 30 MG TAB PO SCH ×3 (09:48→16:33)
[2020-09-29] MEDS: FAMOTIDINE 20 MG/2 ML VIAL IVP SCH (09:48)
[2020-09-29] MEDS: DEXAMETHASONE 4 MG/ML VIAL IVP SCH (09:49)
[2020-09-29 10:17] LABS: BASOPHILS # (AUTO) 0.1 K/uL (0.00-0.22); BASOPHILS % (AUTO) 0.5 % (0.0-2.0); EOSINOPHILS # (AUTO) 0.1 K/uL (0-0.4); EOSINOPHILS % (AUTO) 0.7 % (0.0-4.0); HEMATOCRIT 20.6 % (36-48); LYMPHOCYTES % (AUTO) 7.3 % (20.5-51.1); MEAN CORPUSCULAR HEMOGLOBIN 29 pg (27-31); MEAN CORPUSCULAR HGB CONC 32 g/dL (33-37); MEAN CORPUSCULAR VOLUME 90.5 fL (80-94); MONOCYTES # (AUTO) 0.8 K/uL (0.8-1.0); MONOCYTES % (AUTO) 5.6 % (1.7-9.3); NEUTROPHILS # (AUTO) 11.8 K/uL (1.8-7.7); NEUTROPHILS % (AUTO) 85.9 % (42.2-75.2); PLATELET COUNT (AUTO) 188 K/uL (140-450); RED BLOOD CELL COUNT(AUTO) 2.27 MIL/uL (4.20-5.40); WHITE BLOOD COUNT (AUTO) 13.7 K/uL (4.8-10.8)
[2020-09-29 10:30] LABS: HEMOGLOBIN 6.6 g/dL (12.0-16.0)
--- NOTE | 2020-09-29 10:46 | NUR ---
dr Floyd HERE AND INFORMED PTS LOW HGB 6.6 AND HCT 20.8 AND ORDERED 2 UNITS OF BLOOD TRANSFUSION TODAY
--- NOTE | 2020-09-29 12:59 | NUR ---
SEDATION VACATION WILLBE TRIED LATER WITH RT BUT AT 12 N00N RR WAS 35 AND BP WAS HIGH
[2020-09-29] MEDS: FOAM DRESSING TP SCH (13:00)
[2020-09-29] MEDS: fentaNYL citrate 2.5 MG in NACL 0.9% 200 ML IV PRN (13:24)
--- NOTE | 2020-09-29 16:21 | NUR ---
09/29/20 RD FOLLOW UP COMPLETED PLEASE REFER TO NUTRITION ASSESSMENT UNDER CARE ACTIVITY FOR ESTIMATED NUTRITIONAL NEEDS. 1. CONT. TWO MICHAEL HN @ 35 ML/HR X 24 HR -PROVIDES 840 ML OF VOLUME, 1680 KCAL, [address] TO FOLLOW-UP 2-3 DAYS, HIGH RISK SHAUNNA BURCH, RD
--- NOTE | 2020-09-29 19:30 | NUR ---
REPORT RECEIVED FROM [facility] PATIENT IS ORALL VENTED ON ACPC MODE RATE OF 28 PEEP OF 7 AND FIO2 40%,PATIENT IS SEDATED WITH PROPOFOL AT 30MCG/KG/MIN AND FENTANYL AT 2MCG/KG/HR .PATIENT IS IN ATRIAL FIB UNCONTROLLEDRATE OF 122/MIN.PATIENT IS .ALL IV ARE INFUSING THRU HER RIGHT UPPER ARM PICC.PATIENT HAS ALSO RUPA CATH IN PLACE ON RIGHT JUGULAR FOR DIALYSIS ACCESS.PATIENT ON CONTINOUS FEEDING WITH HN2 MICHAEL AT 45CC/HRTHRU MURALI MADRIGAL.
--- NOTE | 2020-09-29 20:00 | NUR ---
SECOND UNIT OF PRBC STARTED TO INFUSE.
--- NOTE | 2020-09-29 21:00 | NUR ---
PATIENT TOLERATED BLOOD TRANSFUSION NO REACTION NOTED SO FAR.PATIENT REMAIN AFEBRILE.
--- NOTE | 2020-09-29 23:00 | NUR ---
SECOND UNIT OF BLOOD ASSIMILATED W/O ANY UNTOWARD REACTION.PATIENT REMAIN AFEBRILE.
[2020-09-30] VITALS (26 sets, daily range): BP systolic 85–140; BP diastolic 41–96
--- NOTE | 2020-09-30 | NUR ---
PATIENT REMAIN INTERMITTENTLY RESTLESS NOT FOLLOWING ANY COMMAND MOVES ALL EXTREMITIES ABLE TO EVEN ROLL ON HIS SIDE ABLE TO MOVE BOTH UPPER EXTREMITIES UP TO HIS CHEST BUT HASNT ATTEMYED TO REACH ON HIS TRACH.PATIENT REQUIRED TO BE ON RESTRAINET TO PROTECT HIM FROM PULLING HIS TRACH AND PICC LINE. WILL TITRATE PROPOFOL TO KEEP HIM CALM. Addendum: 09/30/20 at 7 by Natalia Alberto RN RN ABOVE NOTE IS MEANT FOR MY OTHER PATIENT.
[2020-09-30] MEDS: PROPOFOL 1000 MG/100 ML PREMIX 100 ML IV PRN ×8 (01:34→21:35)
[2020-09-30] MEDS: fentaNYL citrate 2.5 MG in NACL 0.9% 200 ML IV PRN (01:37)
[2020-09-30] MEDS: HYDROCOLLOID DRESSING TP SCH ×3 (01:49→13:00)
--- NOTE | 2020-09-30 04:00 | NUR ---
PATIENT IS VERY TACHYPNEIC HEAR RATE IN THE 40,CONTINUE WITH PROPOFOL AND FENTANYKL FOR SEDATION. CONTINUE TO MONITOR CLOSELY.
[2020-09-30] MEDS: CLONIDINE HYDROCHLORIDE 0.1 MG TAB PO SCH ×4 (05:31→23:00)
[2020-09-30 06:17] LABS: ALBUMIN 1.3 g/dL (3.4-5.0); ANION GAP 11.7 (8-16); ASPARTATE AMINOTRANSFERASE 39 U/L (15-37); CARBON DIOXIDE 26.2 mmol/L (21-32); CHLORIDE 111 mmol/L (98-107); CREATININE 1.1 mg/dL (0.6-1.3); GLUCOSE 135 mg/dL (74-106); POTASSIUM 3.9 mmol/L (3.5-5.1); SODIUM SERUM 145 mmol/L (136-145); TOTAL BILIRUBIN 0.4 mg/dL (0.0-1.0); UREA NITROGEN, BLOOD 56 mg/dL (7-18)
[2020-09-30 06:32] LABS: BASOPHILS # (AUTO) 0.1 K/uL (0.00-0.22); BASOPHILS % (AUTO) 0.5 % (0.0-2.0); EOSINOPHILS # (AUTO) 0.2 K/uL (0-0.4); EOSINOPHILS % (AUTO) 1.2 % (0.0-4.0); HEMATOCRIT 29.5 % (36-48); HEMOGLOBIN 9.5 g/dL (12.0-16.0); LYMPHOCYTES % (AUTO) 6.6 % (20.5-51.1); MEAN CORPUSCULAR HEMOGLOBIN 29 pg (27-31); MEAN CORPUSCULAR HGB CONC 32 g/dL (33-37); MEAN CORPUSCULAR VOLUME 88.8 fL (80-94); MONOCYTES # (AUTO) 0.9 K/uL (0.8-1.0); MONOCYTES % (AUTO) 5.7 % (1.7-9.3); NEUTROPHILS # (AUTO) 13.4 K/uL (1.8-7.7); PLATELET COUNT (AUTO) 175 K/uL (140-450); RED BLOOD CELL COUNT(AUTO) 3.32 MIL/uL (4.20-5.40); WHITE BLOOD COUNT (AUTO) 15.5 K/uL (4.8-10.8)
--- NOTE | 2020-09-30 06:35 | NUR ---
NOTIFIED DR SIMMONS OF HEART RATE INTHE 170 ATRIAL FIB UNCONTROLLED,DR SIMMONS WITH ORDER.
[2020-09-30] MEDS ORDERED: DILTIAZEM 25 MG/5 ML VIAL IVP ONE (07:09)
[2020-09-30] MEDS ORDERED: DILTIAZEM 25 MG/5 ML VIAL IVP SCH (07:15)
--- NOTE | 2020-09-30 07:44 | NUR ---
RECEIVED REPORT FROM NIGHTSHIFT RN. UPON INITIAL ASSESSMENT, PT IN AFIB IN 120S AND BREATHING IN 40S. MD ORDERED 20 MG CARDIZEM IV PUSH, AND REQUESTED THAT IF HR DID NOT DECREASE TO ADMINISTER 0.5 MG DIGOXIN. AFTER DIRECTOR CLOUD TRANSFORMATION RN ADMINISTERED CARDIZEM, HR DECREASED TO 90S WITHIN 30 MINUTES AND PT BREATHING IN MID 30S.. PT IN NO SIGNS OF ACUTE DISTRESS. WILL CONTINUE TO MONITOR AND ASSESS PATIENT.
[2020-09-30 08:21] LABS: BASOPHILS # (AUTO) 0.2 K/uL (0.00-0.22); BASOPHILS % (AUTO) 1.3 % (0.0-2.0); EOSINOPHILS # (AUTO) 0.1 K/uL (0-0.4); EOSINOPHILS % (AUTO) 0.8 % (0.0-4.0); HEMATOCRIT 26.9 % (36-48); HEMOGLOBIN 8.8 g/dL (12.0-16.0); LYMPHOCYTES % (AUTO) 6.2 % (20.5-51.1); MEAN CORPUSCULAR HEMOGLOBIN 29 pg (27-31); MEAN CORPUSCULAR HGB CONC 33 g/dL (33-37); MEAN CORPUSCULAR VOLUME 87.8 fL (80-94); MONOCYTES # (AUTO) 0.8 K/uL (0.8-1.0); NEUTROPHILS # (AUTO) 14.3 K/uL (1.8-7.7); NEUTROPHILS % (AUTO) 86.7 % (42.2-75.2); PLATELET COUNT (AUTO) 179 K/uL (140-450); RED BLOOD CELL COUNT(AUTO) 3.06 MIL/uL (4.20-5.40); RED CELL DISTRIBUTION WIDTH 17.5 % (11.6-13.7); WHITE BLOOD COUNT (AUTO) 16.5 K/uL (4.8-10.8)
[2020-09-30] MEDS: ASCORBIC ACID 500 MG/5 ML ORASYR GT SCH (08:35)
[2020-09-30] MEDS: VITAMIN D 400 IU TAB GT SCH (08:35)
[2020-09-30] MEDS: DILTIAZEM 30 MG TAB PO SCH ×3 (08:36→17:35)
[2020-09-30] MEDS: FAMOTIDINE 20 MG/2 ML VIAL IVP SCH (08:37)
[2020-09-30] MEDS: FUROSEMIDE 40 MG/4 ML VIAL IVP SCH (08:37)
[2020-09-30] MEDS: DEXAMETHASONE 4 MG/ML VIAL IVP SCH (08:37)
[2020-09-30 08:38] LABS: ALBUMIN 1.2 g/dL (3.4-5.0); ANION GAP 10.5 (8-16); ASPARTATE AMINOTRANSFERASE 38 U/L (15-37); CARBON DIOXIDE 26.2 mmol/L (21-32); CHLORIDE 112 mmol/L (98-107); CREATININE 1.1 mg/dL (0.6-1.3); GLUCOSE 129 mg/dL (74-106); POTASSIUM 3.7 mmol/L (3.5-5.1); SODIUM SERUM 145 mmol/L (136-145); TOTAL BILIRUBIN 0.4 mg/dL (0.0-1.0); UREA NITROGEN, BLOOD 53 mg/dL (7-18)
--- NOTE | 2020-09-30 11:49 | NUR ---
PT R.A.S.S. IS -3. PT WORK OF BREATHING IS ELEVATED RR > 37. PT IS CURRENTLY RECEIVING PROPOFOL AND FENTANYL. PT IS NOT ABLE TO BE WEANED AT THIS POINT. DR. VILLASEÑOR IS AWARE OF CURRENT PT CONDITION.
[2020-09-30] MEDS: FOAM DRESSING TP SCH (13:00)
[2020-09-30] MEDS: NOREPINEPHRINE 16 MG in DEXTROSE 5% 250 ML IV PRN (13:09)
[2020-09-30] MEDS: ACETAMINOPHEN 325 MG TAB PO PRN (14:27)
--- NOTE | 2020-09-30 15:31 | NUR ---
DURING PICC LINE DRESSING CHANGE, CATHETER PULLED OUT AROUND 1-2 CM. CLEANSED WITH CLOROPREP AND REDRESSED WITH BIOPATCH. NOTIFIED MD AND PICC NURSE AND PER ORDER, GOT CHEST XRAY OF PT, SHOWING CATHETER PLACEMENT TO BE SUFFICIENT.
--- NOTE | 2020-09-30 15:33 | NUR ---
MD AWARE OF PT BREATHING AT RATE OF 40 FOR PROLONGED PERIOD (THROUGHOUT MORNING). PT MAXED ON FENTANYL AT 2.5 MCG/KG/HR AND PROPOFOL INCREASED TO 55 MCG/KG/MIN. AFTER 30 MINUTES, PT CONTINUES TO BREATHE AT RATE OF MID 30S-40S. DR VILLASEÑOR REQUESTING TO NOT ATTEMPT BREATHING TRIALS AND "KEEP PT STABLE". WILL CONTINUE TO MONITOR AND ASSESS PT.
--- NOTE | 2020-09-30 16:00 | NUR ---
PAGED DOCTOR CHARLEEN NOTIFYING THAT PT HAD BEEN CONTINUOUSLY BREATHING IN 40S. WITH PROPOFOL AT 70 AND FENTANYL MAXED, NOTED TO MD THAT ADDING ANOTHER SEDATIVE COULD BE BENEFICIAL.MD ORDERED VERSED GTT. WILL CONTINUE TO MONITOR AND ASSESS PATIENT.
--- NOTE | 2020-09-30 17:00 | NUR ---
DR HUNTER AT BEDSIDE REQUESTING 50 CC/HR MAINTENANCE NS IN ORDER TO ASSIST WITH BP NEEDS. MD ADDITIONALLY VERBALIZED FEELING COMFORTABLE CONTINUING TO HOLD OFF ON DIALYSIS AND REMOVE THE SCHEDULED LASIX. TORB PLACED FOR MD FO MAINTENANCE AND D/C LASIX. PT PUT OUT 1300 CC URINE ON DAY SHIFT. WILL CONTINUE TO MONITOR AND ASSESS PATIENT.
[2020-09-30] MEDS ORDERED: NACL 0.9% 1,000 ML IV SCH (17:05)
[2020-09-30] MEDS: MIDAZOLAM MDV 100 MG in NACL 0.9% 80 ML IV PRN (17:06)
[2020-09-30] MEDS: NACL 0.9% 1,000 ML IV SCH (17:32)
--- NOTE | 2020-09-30 19:00 | NUR ---
CARDIZEM 20 MG IVP GIVEN RBO BY DR SIMMONS.
--- NOTE | 2020-09-30 19:30 | NUR ---
RECEIVED REPORT FROM [facility] PATIENT IS ORALLY VENTED ON ACPC MODE RATE OF 28 PEEP OF 7 WITH FIO2 AT 30%.PATIENT IS IN ATRIAL FIB HER RATE IS BETTER CONTROL,PATIENT IS SEDATED WITH PROPOFOL ,VERSED AND FENTANYL INFUSING THRU HER PICC LINE ON RIGHT UPPER ARM OGT IN PLACE AND ON CONTINOUS FEEDING WITH HN2CAL AT 45CC/HR PATIENT IS TOLERATING FEEDING ,TOWNSEND CATH IN PLACE URINE OUTPUT IS GOOD.
[2020-10-01] VITALS (27 sets, daily range): BP systolic 114–236; BP diastolic 60–92
[2020-10-01] MEDS: HYDROCOLLOID DRESSING TP SCH ×2 (01:00→13:14)
[2020-10-01] MEDS: CLONIDINE HYDROCHLORIDE 0.1 MG TAB PO SCH ×3 (05:00→22:00)
[2020-10-01] MEDS: PROPOFOL 1000 MG/100 ML PREMIX 100 ML IV PRN (05:55)
[2020-10-01 06:13] LABS: BASOPHILS # (AUTO) 0.1 K/uL (0.00-0.22); BASOPHILS % (AUTO) 0.4 % (0.0-2.0); HEMATOCRIT 27.5 % (36-48); MEAN CORPUSCULAR HEMOGLOBIN 29 pg (27-31); MEAN CORPUSCULAR HGB CONC 33 g/dL (33-37); MEAN CORPUSCULAR VOLUME 89.4 fL (80-94); MONOCYTES # (AUTO) 0.7 K/uL (0.8-1.0); MONOCYTES % (AUTO) 4.2 % (1.7-9.3); NEUTROPHILS # (AUTO) 14.8 K/uL (1.8-7.7); NEUTROPHILS % (AUTO) 89.4 % (42.2-75.2); PLATELET COUNT (AUTO) 181 K/uL (140-450); RED BLOOD CELL COUNT(AUTO) 3.08 MIL/uL (4.20-5.40); RED CELL DISTRIBUTION WIDTH 17.9 % (11.6-13.7); WHITE BLOOD COUNT (AUTO) 16.5 K/uL (4.8-10.8)
[2020-10-01 06:37] LABS: ALBUMIN 1.2 g/dL (3.4-5.0); ASPARTATE AMINOTRANSFERASE 38 U/L (15-37); CARBON DIOXIDE 23.8 mmol/L (21-32); CHLORIDE 112 mmol/L (98-107); CREATININE 1.1 mg/dL (0.6-1.3); GLUCOSE 193 mg/dL (74-106); POTASSIUM 3.8 mmol/L (3.5-5.1); SODIUM SERUM 147 mmol/L (136-145); TOTAL BILIRUBIN 0.4 mg/dL (0.0-1.0); UREA NITROGEN, BLOOD 50 mg/dL (7-18)
[2020-10-01] MEDS: fentaNYL citrate 2.5 MG in NACL 0.9% 200 ML IV PRN ×2 (07:38→22:05)
[2020-10-01] MEDS: DILTIAZEM 30 MG TAB PO SCH ×3 (07:52→17:29)
[2020-10-01] MEDS: ASCORBIC ACID 500 MG/5 ML ORASYR GT SCH (07:57)
[2020-10-01] MEDS: VITAMIN D 400 IU TAB GT SCH (07:58)
[2020-10-01] MEDS: ACETAMINOPHEN 325 MG TAB PO PRN (07:58)
[2020-10-01] MEDS: FAMOTIDINE 20 MG/2 ML VIAL IVP SCH (07:59)
[2020-10-01] MEDS: DEXAMETHASONE 4 MG/ML VIAL IVP SCH (07:59)
--- NOTE | 2020-10-01 08:23 | NUR ---
DURING BEDSIDE HANDOVER PT APPEARED TO HAVE LABORED BREATHING WITH A RR OF MID 40S AND HR IN 140S AFIB. LEATHER SORTER RN EXPLAINED THAT SHE HAD BEEN WAITING FOR FENTANYL GTT TO ARRIVE FROM PHARMACY, BUT PT ALSO HAD VERSED AT 2MG/HR AND PROPOFOL AT 40 MCG/KG/MIN. CALLED PHARMACY AGAIN AT 0715 TO VERIFY THAT MEDICATION WAS TO ARRIVE SOON. AFTER RESTARTING FENTANYL GTT, 20 MINUTES LATER, PT BEGAN BREATHING IN THE LOW 30S AND HR DECREASED TO 80S. PT CURRENTLY STABLE AND TOLERATING VENTILATOR. WILL CONTINUE TO MONITOR AND ASSESS.
--- NOTE | 2020-10-01 12:00 | NUR ---
PT TOLERATING VENTILATOR AT 30% FIO2. PT NOT FOLLOWING COMMANDS. HR STABLE THROUGHOUT MORNING- ATRIAL FIB IN 70S. HELD CARDIZEM DUE TO HR OCCASIONALLY IN 60S. WILL CONTINUE TO MONITOR AND ASSESS.
[2020-10-01] MEDS: FOAM DRESSING TP SCH (13:14)
[2020-10-01] MEDS: NACL 0.9% 1,000 ML IV SCH (13:15)
[2020-10-01] MEDS: NACL 0.45% 1,000 ML IV SCH (14:16)
--- NOTE | 2020-10-01 15:00 | NUR ---
LARGE OPEN COCCYX WOUND CLEANSED AND REDRESSED. -WOUND APPEARS TO HAVE WORSENED AND EXPANDED SINCE LAST WEEK/ WOUND THE SIZE OF A GRAPEFRUIT. WOUND BED WHITE AND BLOODY WITH SURROUNDING TISSUE LOOKING LIKE TISSUE PAPER. WILL CONTINUE TO OFFLOAD PT'S WEIGHT Q2H AND APPLY BARRIER CREAM TO SURROUNDING SKIN. WOUND NURSE FOLLOWING. WILL CONTINUE TO MONITOR AND ASSESS FOR SIGNS OF INFECTION AND FURTHER TISSUE DAMAGE.
--- NOTE | 2020-10-01 19:43 | NUR ---
RECEIVED PATIENT FROM AM SHIFT. PATIENT WAS SEEN AND ASSESSED. FOUND PT IN SUPINE POSITION. PATIENT IS INTUBATED WITH ETT SIZE 7.5 AND SECURED WITH BITTING BLOCK ANCHOR-FAST AT 23cm . PATIENT IS ON VENT SETTINGS: AC/PC 20, RR 28, PEEP 7, FiO2 30% WITH SPO2 OF 98%. AMBU BAG AT BEDSIDE. VENT IS PLUGGED IN RED OUTLET. ALARMS SET AND AUDIBLE TO ENVIRONMENT. SUCTIONED SCANT AMOUNT OF CLEAR WHITE SECRETIONS FROM ETT. AIRWAY IS PATENT. AUSCULTATION REVEALS BILATERAL DIMINISHED ON THE UPPER LOBES AND RALES ON THE BASES. PATIENT IS IN NO APPARENT RESPIRATORY DISTRESS AT THIS TIME. WILL CONTINUE TO MONITOR PATIENT.
[2020-10-02] VITALS (31 sets, daily range): BP systolic 104–148; BP diastolic 57–89
[2020-10-02] MEDS: PROPOFOL 1000 MG/100 ML PREMIX 100 ML IV PRN ×2 (00:40→16:35)
[2020-10-02] MEDS: HYDROCOLLOID DRESSING TP SCH ×2 (01:00→13:16)
[2020-10-02] MEDS: CLONIDINE HYDROCHLORIDE 0.1 MG TAB PO SCH ×3 (01:00→21:54)
[2020-10-02 06:11] LABS: BASOPHILS % (AUTO) 0.3 % (0.0-2.0); EOSINOPHILS % (AUTO) 0.1 % (0.0-4.0); HEMATOCRIT 25.8 % (36-48); HEMOGLOBIN 8.6 g/dL (12.0-16.0); LYMPHOCYTES # (AUTO) 0.8 K/uL (2.5-16.5); LYMPHOCYTES % (AUTO) 6.2 % (20.5-51.1); MEAN CORPUSCULAR HEMOGLOBIN 30 pg (27-31); MEAN CORPUSCULAR HGB CONC 33 g/dL (33-37); MEAN CORPUSCULAR VOLUME 89.8 fL (80-94); MONOCYTES # (AUTO) 0.6 K/uL (0.8-1.0); MONOCYTES % (AUTO) 4.4 % (1.7-9.3); NEUTROPHILS # (AUTO) 11.8 K/uL (1.8-7.7); PLATELET COUNT (AUTO) 180 K/uL (140-450); RED BLOOD CELL COUNT(AUTO) 2.87 MIL/uL (4.20-5.40); RED CELL DISTRIBUTION WIDTH 17.9 % (11.6-13.7); WHITE BLOOD COUNT (AUTO) 13.2 K/uL (4.8-10.8)
[2020-10-02 06:47] LABS: ALBUMIN 1.1 g/dL (3.4-5.0); ANION GAP 16.5 (8-16); ASPARTATE AMINOTRANSFERASE 39 U/L (15-37); CARBON DIOXIDE 22.2 mmol/L (21-32); CHLORIDE 109 mmol/L (98-107); CREATININE 0.8 mg/dL (0.6-1.3); GLUCOSE 149 mg/dL (74-106); POTASSIUM 3.7 mmol/L (3.5-5.1); SODIUM SERUM 144 mmol/L (136-145); TOTAL BILIRUBIN 0.4 mg/dL (0.0-1.0); UREA NITROGEN, BLOOD 52 mg/dL (7-18)
[2020-10-02] MEDS: MIDAZOLAM MDV 100 MG in NACL 0.9% 80 ML IV PRN (07:17)
--- NOTE | 2020-10-02 07:55 | NUR ---
RECEIVED BEDSIDE REPORT FROM ASSEMBLER LIQUID CENTER NURSE. PATIENT IN SUPINE IN BED, SEDATED TO RASS -2. BREATHING EVEN AND UNLABORED, NO SIGNS OF ACUTE DISTRESS NOTED. ETT TO VENT: ACPC FIO2 30%, RR 28, PEEP 7, SPO2 98%. OG TUBE RUNNING NEPRO @ 60 ML/HR. TOWNSEND AND RECTAL TUBE IN PLACE, RUNNING TO GRAVITY. KALEY PICC CLEAN DRY INTACT INFUSING: FENTANYL @ 2 MCG/KG/HR, PROPOFOL @ 40 MCG/KG/MIN, 0.45 NS @ 50 ML/HR, VERSED @ 2 MG/HR. CARDIA MONITOR IN PLACE. SAFETY MEASURES IN PLACE.
[2020-10-02] MEDS: VITAMIN D 400 IU TAB GT SCH (08:49)
[2020-10-02] MEDS: ASCORBIC ACID 500 MG/5 ML ORASYR GT SCH (08:49)
[2020-10-02] MEDS: DEXAMETHASONE 4 MG/ML VIAL IVP SCH (08:50)
[2020-10-02] MEDS: FAMOTIDINE 20 MG/2 ML VIAL IVP SCH (08:50)
[2020-10-02] MEDS: DILTIAZEM 30 MG TAB PO SCH ×3 (08:51→17:26)
--- NOTE | 2020-10-02 08:55 | NUR ---
ADMINISTERED SCHEDULED MEDS PER MD ORDER, MED EDUCATION PROVIDED, REINFORCEMENT NEEDED. G TUBE RESIDUAL 5 ML, FLUSHED BEFORE AND AFTER MEDS. MORNING HYGIENE PROVIDED: VAP ORAL CARE, CATHETER CARE, CHG BATH, CHANGED ALL DIRTY LINEN. PATIENT REPOSITIONED AND OFFLOADED PRESSURE WITH PILLOWS. ACTIVITY TOLERATED WELL, NO SIGNS OF ACUTE DISTRESS NOTED. SETTER MACHINE IN PLACE. SAFETY MEASURES IN PLACE.
[2020-10-02] MEDS: NACL 0.45% 1,000 ML IV SCH (10:00)
--- NOTE | 2020-10-02 11:00 | NUR ---
PER DR VILLASEÑOR, KEEP PROPOFOL AT 20 MCG/KG/MIN, BEGIN TO WEAN OFF VERSED AND FENTANYL, THEN ADJUST PROPOFOL NECESSARY.
[2020-10-02] MEDS: FOAM DRESSING TP SCH (13:15)
--- NOTE | 2020-10-02 14:53 | NUR ---
PER HE WOULD LIKE TO WEAN SEDATION MORE BEFORE PERFORMING AN SBT TRIAL IN PT. ILL FOLLOW UP WITH ORDERS FOR FURTHER WEANING PARAMETERS FOR THE VENTILATOR CARE.
--- NOTE | 2020-10-02 14:56 | NUR ---
10/02/20 RD FOLLOW UP COMPLETED PLEASE REFER TO NUTRITION ASSESSMENT UNDER CARE ACTIVITY FOR ESTIMATED NUTRITIONAL NEEDS. 1. RECOMMEND PROSOURCE BID WITH TWO MICHAEL HN @ 35 ML/HR X 24 HR -PROVIDES 840 ML OF VOLUME, 1800 KCAL, 100 GM OF PROTEIN, WHICH IS MEETING 100% OF ESTIMATED KCAL AND PROTEIN NEEDS 2. CURRENT FLUSH IS [address] TO FOLLOW-UP 2-3 DAYS, HIGH RISK SHAUNNA BURCH RD
--- NOTE | 2020-10-02 15:04 | NUR ---
CALLED PATIENT'S DAUGHTER, CECILIA EVERETT AT PHONE NUMBER: [phone] TO OBTAIN TELEPHONE CONSENT FOR TRACHEOSTOMY AND PEG TUBE. NO ANSWER, AND UNABLE TO LEAVE VM DUE TO MAILBOX FULL. WILL FOLLOW UP AND CALL AGAIN DURING SHIFT.
--- NOTE | 2020-10-02 19:16 | NUR ---
PATIENT ENDORSED TO PLATFORM WORKER NURSE. PLATFORM WORKER NURSE AWARE OF PLANS FOR WEANING OFF SEDATION AND PLAN FOR TRACHEOSTOMY AND PEG TUBE. PATIENT STABLE AT THIS TIME.
--- NOTE | 2020-10-02 19:20 | NUR ---
RECEIVED PATIENT FROM AM SHIFT. PATIENT WAS SEEN AND ASSESSED. FOUND PT IN SUPINE POSITION. PATIENT IS INTUBATED WITH ETT SIZE 7.5 AND SECURED WITH BITTING BLOCK ANCHOR-FAST AT 23cm . PATIENT IS ON VENT SETTINGS: AC/PC 20, RR 28, PEEP 7, FiO2 40% WITH SPO2 OF 92%. NOTICED ADEQUATE CHEST RISE AND FALL. AMBU BAG AT BEDSIDE. VENT IS PLUGGED IN RED OUTLET. ALARMS SET AND AUDIBLE TO ENVIRONMENT. SUCTIONED SCANT AMOUNT OF CLEAR WHITE SECRETIONS FROM ETT. SUCTIONED CLEAR WHITE SECRETIONS ORALLY DURING ORAL CARE. PT TOLERATED WELL. AIRWAY IS PATENT. AUSCULTATION REVEALS BILATERAL DIMINISHED ON THE UPPER LOBES AND RALES ON THE BASES. PATIENT IS IN NO APPARENT RESPIRATORY DISTRESS AT THIS TIME. WILL CONTINUE TO MONITOR PATIENT.
[2020-10-03] VITALS (32 sets, daily range): BP systolic 87–176; BP diastolic 55–101
[2020-10-03] MEDS: HYDROCOLLOID DRESSING TP SCH ×3 (01:00→13:05)
[2020-10-03] MEDS: CLONIDINE HYDROCHLORIDE 0.1 MG TAB PO SCH ×3 (04:59→21:01)
[2020-10-03 05:48] LABS: BASOPHILS # (AUTO) 0.1 K/uL (0.00-0.22); BASOPHILS % (AUTO) 0.6 % (0.0-2.0); EOSINOPHILS % (AUTO) 0.1 % (0.0-4.0); HEMATOCRIT 24.1 % (36-48); LYMPHOCYTES # (AUTO) 0.8 K/uL (2.5-16.5); LYMPHOCYTES % (AUTO) 7.8 % (20.5-51.1); MEAN CORPUSCULAR HEMOGLOBIN 30 pg (27-31); MEAN CORPUSCULAR HGB CONC 33 g/dL (33-37); MEAN CORPUSCULAR VOLUME 90.3 fL (80-94); MONOCYTES # (AUTO) 0.6 K/uL (0.8-1.0); MONOCYTES % (AUTO) 5.2 % (1.7-9.3); NEUTROPHILS # (AUTO) 9.1 K/uL (1.8-7.7); NEUTROPHILS % (AUTO) 86.3 % (42.2-75.2); PLATELET COUNT (AUTO) 203 K/uL (140-450); RED BLOOD CELL COUNT(AUTO) 2.67 MIL/uL (4.20-5.40); RED CELL DISTRIBUTION WIDTH 17.7 % (11.6-13.7); WHITE BLOOD COUNT (AUTO) 10.5 K/uL (4.8-10.8)
[2020-10-03 06:11] LABS: ANION GAP 10.4 (8-16); ASPARTATE AMINOTRANSFERASE 46 U/L (15-37); CARBON DIOXIDE 25.2 mmol/L (21-32); CHLORIDE 109 mmol/L (98-107); CREATININE 0.7 mg/dL (0.6-1.3); GLUCOSE 114 mg/dL (74-106); POTASSIUM 3.6 mmol/L (3.5-5.1); SODIUM SERUM 141 mmol/L (136-145); TOTAL BILIRUBIN 0.3 mg/dL (0.0-1.0); UREA NITROGEN, BLOOD 47 mg/dL (7-18)
[2020-10-03] MEDS: PROPOFOL 1000 MG/100 ML PREMIX 100 ML IV PRN ×2 (06:17→15:30)
[2020-10-03] MEDS: NACL 0.45% 1,000 ML IV SCH ×2 (06:28→21:10)
--- NOTE | 2020-10-03 07:25 | NUR ---
RECEIVED BEDSIDE REPORT FROM INDUSTRIAL ENGINEER NURSE. PATIENT IN SUPINE IN BED, SEDATED TO RASS -2. BREATHING EVEN AND UNLABORED, NO SIGNS OF ACUTE DISTRESS NOTED. ETT TO VENT: ACPC FIO2 40%, RR 28, PEEP 7, SPO2 98%. OG TUBE RUNNING NEPRO. TOWNSEND AND RECTAL TUBE IN PLACE, RUNNING TO GRAVITY. KALEY PICC CLEAN DRY INTACT INFUSING: FENTANYL @ 2 MCG/KG/HR, PROPOFOL @ 25 MCG/KG/MIN, 0.45 NS @ 50 ML/HR. MATERIAL HANDLER IN PLACE. SAFETY MEASURES IN PLACE.
--- NOTE | 2020-10-03 07:30 | NUR ---
RT AT BEDSIDE, BEGINNING SBT. WILL MONITOR CLOSELY.
--- NOTE | 2020-10-03 07:32 | NUR ---
PT PLACED ON CPAP 5 PS 10 BY REQUEST OF NURSE. VENT ALARMS ON AND FUNCTIONING. WILL CONTINUE TO MONITOR.
--- NOTE | 2020-10-03 07:55 | NUR ---
SBT ENDED. SPO2 98%.
--- NOTE | 2020-10-03 07:57 | NUR ---
VENT WENT BACK INTO ORIGINAL MODE DUE TO HIGH RR DURING SBT. NURSE MADE AWARE.
[2020-10-03] MEDS ORDERED: BUPIVACAINE MPF 0.25% 10 ML VIAL INJ ONE ×2 (08:15→09:32)
--- NOTE | 2020-10-03 08:40 | NUR ---
Wound care re-evaluation pending. RT and primary RN at bed side, pt. back to vent and being monitor closely., pt. also schedule for peg and trach insertion today.
[2020-10-03] MEDS: DILTIAZEM 30 MG TAB PO SCH ×3 (09:00→17:40)
[2020-10-03] MEDS ORDERED: fentaNYL citrate 0.05 MG/ML VIAL ONE (09:07)
[2020-10-03] MEDS ORDERED: SEVOFLURANE 250 ML BTL INH ONE (09:07)
[2020-10-03] MEDS ORDERED: ROCURONIUM 50 MG/5 ML VIAL IV ONE (09:07)
[2020-10-03] MEDS: VITAMIN D 400 IU TAB GT SCH (12:52)
[2020-10-03] MEDS: DEXAMETHASONE 4 MG/ML VIAL IVP SCH (12:53)
[2020-10-03] MEDS: ASCORBIC ACID 500 MG/5 ML ORASYR GT SCH (12:53)
[2020-10-03] MEDS: FAMOTIDINE 20 MG/2 ML VIAL IVP SCH (12:54)
--- NOTE | 2020-10-03 13:01 | NUR ---
ADMINISTERED MORNING SCHEDULED MEDS PER MD ORDER. PER JOSE G CHOI TO USE PEG TUBE. FEEDING RESTARTED. MED EDUCATION PROVIDED, REINFORCEMENT NEEDED. PERFORMED ORAL CARE, PATIENT REPOSITIONED AND OFFLOADED PRESSURE WITH PILLOWS. COMPATIBILITY TEST ENGINEER IN PLACE. SAFETY MEASURES IN PLACE.
[2020-10-03] MEDS: FOAM DRESSING TP SCH (13:05)
--- NOTE | 2020-10-03 19:11 | NUR ---
ENDORSED PATIENT TO RUG CLEANER HELPER CHARGE NURSE FOR CONTINUITY OF CARE. PATIENT STABLE AT THIS TIME.
--- NOTE | 2020-10-03 19:30 | NUR ---
RECEIVED REPORT PATIENT IS S/P TRACHEOSTOMY INSERTION AND PEG INSERTION TODAY.PATIENT IS BEING VENTILATED ON ACPV MODE RATE OF 28 WITH FIO2 60% PATIENT IS SEDATED WITH PROPOFOL AND FENTANYL,PATIENT IS SATURATING WELL ON PRESENT VENT SETTING.PATIENT IS IN ATRIAL FIB CONTROLLED RATE TRACHEOSTOMY SITE W/O ANY BLEEDING AND GT SITE IS W/O ANY BLEEDING.PATIENT IS TOLERATING FEEDING AT THIS TIME.
--- NOTE | 2020-10-03 19:37 | NUR ---
1924 sputum sample uptained and sent to lab
[2020-10-04] VITALS (31 sets, daily range): BP systolic 104–165; BP diastolic 57–100
[2020-10-04] MEDS: PROPOFOL 1000 MG/100 ML PREMIX 100 ML IV PRN (00:17)
[2020-10-04] MEDS: HYDROCOLLOID DRESSING TP SCH ×2 (01:30→13:00)
[2020-10-04] MEDS: fentaNYL citrate 2.5 MG in NACL 0.9% 200 ML IV PRN ×2 (05:01→20:37)
[2020-10-04] MEDS: CLONIDINE HYDROCHLORIDE 0.1 MG TAB PO SCH ×3 (05:31→22:39)
[2020-10-04 06:30] LABS: BASOPHILS # (AUTO) 0.1 K/uL (0.00-0.22); BASOPHILS % (AUTO) 0.4 % (0.0-2.0); EOSINOPHILS # (AUTO) 0.1 K/uL (0-0.4); EOSINOPHILS % (AUTO) 0.4 % (0.0-4.0); HEMATOCRIT 27.1 % (36-48); HEMOGLOBIN 8.8 g/dL (12.0-16.0); LYMPHOCYTES % (AUTO) 7.6 % (20.5-51.1); MEAN CORPUSCULAR HEMOGLOBIN 29 pg (27-31); MEAN CORPUSCULAR HGB CONC 32 g/dL (33-37); MEAN CORPUSCULAR VOLUME 90.3 fL (80-94); MONOCYTES # (AUTO) 0.4 K/uL (0.8-1.0); MONOCYTES % (AUTO) 3.3 % (1.7-9.3); NEUTROPHILS # (AUTO) 11.7 K/uL (1.8-7.7); NEUTROPHILS % (AUTO) 88.3 % (42.2-75.2); PLATELET COUNT (AUTO) 240 K/uL (140-450); RED CELL DISTRIBUTION WIDTH 17.5 % (11.6-13.7); WHITE BLOOD COUNT (AUTO) 13.3 K/uL (4.8-10.8)
[2020-10-04 06:50] LABS: ALBUMIN 1.2 g/dL (3.4-5.0); ANION GAP 12.6 (8-16); ASPARTATE AMINOTRANSFERASE 69 U/L (15-37); CARBON DIOXIDE 22.2 mmol/L (21-32); CHLORIDE 109 mmol/L (98-107); CREATININE 0.7 mg/dL (0.6-1.3); GLUCOSE 119 mg/dL (74-106); POTASSIUM 3.8 mmol/L (3.5-5.1); SODIUM SERUM 140 mmol/L (136-145); TOTAL BILIRUBIN 0.5 mg/dL (0.0-1.0); UREA NITROGEN, BLOOD 37 mg/dL (7-18)
[2020-10-04] MEDS: DILTIAZEM 30 MG TAB PO SCH ×3 (08:57→17:00)
[2020-10-04] MEDS: VITAMIN D 400 IU TAB GT SCH (09:00)
[2020-10-04] MEDS: FAMOTIDINE 20 MG/2 ML VIAL IVP SCH (09:00)
[2020-10-04] MEDS: DEXAMETHASONE 4 MG/ML VIAL IVP SCH (09:00)
[2020-10-04] MEDS: ASCORBIC ACID 500 MG/5 ML ORASYR GT SCH (09:00)
--- NOTE | 2020-10-04 10:11 | NUR ---
DR SALAZAR AT BEDSIDE, START SEDATION VACATION, HOLD PROPOFOL AND VERSED, CONTINUE FENTANYL FOR NOW PER DR SALAZAR, AND START PRN ATIVAN 2MG PRN Q4H IF PT BECOMES AGITATED.
[2020-10-04] MEDS: FOAM DRESSING TP SCH (13:00)
--- NOTE | 2020-10-04 14:59 | NUR ---
10/04/20 RD FOLLOW UP COMPLETED PLEASE REFER TO NUTRITION PROGRESS NOTE UNDER CARE ACTIVITY FOR ESTIMATED NUTRITION NEEDS. RD RECOMMENDATIONS: 1. CONTINUE TWO MICHAEL HN @ 35 ML/HR X 24 HR WITH PROSOUCE BID. -PROVIDES 840 ML OF VOLUME, 1800 KCAL, 100 GM OF PROTEIN, WHICH IS MEETING 100% OF ESTIMATED KCAL AND PROTEIN NEEDS 2. CONTINUE CURRENT FLUSH IS [address] TO FOLLOW-UP 2-3 DAYS, HIGH RISK ZAHIDA FERNANDEZ, RD
[2020-10-04] MEDS: NACL 0.45% 1,000 ML IV SCH (21:45)
[2020-10-05] VITALS (28 sets, daily range): BP systolic 44–148; BP diastolic 58–99
[2020-10-05] MEDS: HYDROCOLLOID DRESSING TP SCH ×2 (01:00→13:00)
[2020-10-05] MEDS: CLONIDINE HYDROCHLORIDE 0.1 MG TAB PO SCH ×3 (05:00→21:00)
[2020-10-05] MEDS: fentaNYL citrate 2.5 MG in NACL 0.9% 200 ML IV PRN ×2 (05:14→18:20)
[2020-10-05 06:26] LABS: BASOPHILS % (AUTO) 0.3 % (0.0-2.0); EOSINOPHILS % (AUTO) 0.1 % (0.0-4.0); HEMATOCRIT 30.4 % (36-48); HEMOGLOBIN 9.7 g/dL (12.0-16.0); LYMPHOCYTES # (AUTO) 0.6 K/uL (2.5-16.5); LYMPHOCYTES % (AUTO) 5.4 % (20.5-51.1); MEAN CORPUSCULAR HEMOGLOBIN 29 pg (27-31); MEAN CORPUSCULAR HGB CONC 32 g/dL (33-37); MEAN CORPUSCULAR VOLUME 90.4 fL (80-94); MONOCYTES # (AUTO) 0.3 K/uL (0.8-1.0); NEUTROPHILS # (AUTO) 10.7 K/uL (1.8-7.7); NEUTROPHILS % (AUTO) 91.2 % (42.2-75.2); PLATELET COUNT (AUTO) 209 K/uL (140-450); RED BLOOD CELL COUNT(AUTO) 3.36 MIL/uL (4.20-5.40); RED CELL DISTRIBUTION WIDTH 17.4 % (11.6-13.7); WHITE BLOOD COUNT (AUTO) 11.7 K/uL (4.8-10.8)
[2020-10-05 06:35] LABS: ALBUMIN 1.2 g/dL (3.4-5.0); ANION GAP 12.1 (8-16); ASPARTATE AMINOTRANSFERASE 57 U/L (15-37); CARBON DIOXIDE 23.2 mmol/L (21-32); CHLORIDE 110 mmol/L (98-107); CREATININE 0.7 mg/dL (0.6-1.3); GLUCOSE 199 mg/dL (74-106); POTASSIUM 4.3 mmol/L (3.5-5.1); SODIUM SERUM 141 mmol/L (136-145); TOTAL BILIRUBIN 0.3 mg/dL (0.0-1.0); UREA NITROGEN, BLOOD 32 mg/dL (7-18)
[2020-10-05] MEDS: VITAMIN D 400 IU TAB GT SCH (08:46)
[2020-10-05] MEDS: ASCORBIC ACID 500 MG/5 ML ORASYR GT SCH (08:46)
[2020-10-05] MEDS: DEXAMETHASONE 4 MG/ML VIAL IVP SCH (08:46)
[2020-10-05] MEDS: DILTIAZEM 30 MG TAB PO SCH ×3 (08:47→17:00)
[2020-10-05] MEDS: FAMOTIDINE 20 MG/2 ML VIAL IVP SCH (08:47)
[2020-10-05] MEDS: FOAM DRESSING TP SCH (13:00)
[2020-10-05] MEDS: NACL 0.45% 1,000 ML IV SCH (17:45)
--- NOTE | 2020-10-05 19:46 | NUR ---
RECEIVED PATIENT IN SUPINE POSITION, TRACH TO VENT WITH FIO2 55%, EYES OPEN BUT NOT FOLLOW THE COMMEND, ON GT FEEDING AT 35 ML/HR, IV DRIP: FENTANYL 3 MCG/KG/HR , IVF 1/2 NS AT 50 ML/HR , TOWNSEND CATH IN PLACE AND DRAINING TO GRAVITY , RECTAL TUBE IS IN PLACE. WILL CONTINUE TO MONITOR.
[2020-10-06] VITALS (32 sets, daily range): BP systolic 120–166; BP diastolic 55–97
--- NOTE | 2020-10-06 | NUR ---
TURN AND REPOSITION Q2H TO PREVENT FURTHER PRESSURE SORE, DRESSING TO COCCYX AREA CHANGED ORDERED.
[2020-10-06] MEDS: HYDROCOLLOID DRESSING TP SCH ×3 (01:00→13:10)
--- NOTE | 2020-10-06 04:30 | NUR ---
SKIN AND ORAL CARE GIVEN , PATIENT TOLERATED WELL.
[2020-10-06] MEDS: CLONIDINE HYDROCHLORIDE 0.1 MG TAB PO SCH ×2 (05:14→13:14)
[2020-10-06 06:11] LABS: BASOPHILS % (AUTO) 0.4 % (0.0-2.0); EOSINOPHILS # (AUTO) 0.3 K/uL (0-0.4); EOSINOPHILS % (AUTO) 2.8 % (0.0-4.0); HEMATOCRIT 27.9 % (36-48); LYMPHOCYTES % (AUTO) 9.7 % (20.5-51.1); MEAN CORPUSCULAR HEMOGLOBIN 29 pg (27-31); MEAN CORPUSCULAR HGB CONC 33 g/dL (33-37); MEAN CORPUSCULAR VOLUME 90.2 fL (80-94); MONOCYTES # (AUTO) 0.5 K/uL (0.8-1.0); MONOCYTES % (AUTO) 5.3 % (1.7-9.3); NEUTROPHILS # (AUTO) 8.5 K/uL (1.8-7.7); NEUTROPHILS % (AUTO) 81.8 % (42.2-75.2); PLATELET COUNT (AUTO) 231 K/uL (140-450); RED BLOOD CELL COUNT(AUTO) 3.09 MIL/uL (4.20-5.40); RED CELL DISTRIBUTION WIDTH 17.7 % (11.6-13.7); WHITE BLOOD COUNT (AUTO) 10.4 K/uL (4.8-10.8)
[2020-10-06 06:30] LABS: ALBUMIN 1.3 g/dL (3.4-5.0); ANION GAP 12.4 (8-16); ASPARTATE AMINOTRANSFERASE 46 U/L (15-37); CARBON DIOXIDE 23.5 mmol/L (21-32); CHLORIDE 109 mmol/L (98-107); CREATININE 0.6 mg/dL (0.6-1.3); GLUCOSE 105 mg/dL (74-106); POTASSIUM 3.9 mmol/L (3.5-5.1); SODIUM SERUM 141 mmol/L (136-145); TOTAL BILIRUBIN 0.3 mg/dL (0.0-1.0); UREA NITROGEN, BLOOD 29 mg/dL (7-18)
[2020-10-06] MEDS: fentaNYL citrate 2.5 MG in NACL 0.9% 200 ML IV PRN (06:46)
[2020-10-06] MEDS: VITAMIN D 400 IU TAB GT SCH (08:42)
[2020-10-06] MEDS: ASCORBIC ACID 500 MG/5 ML ORASYR GT SCH (08:43)
[2020-10-06] MEDS: DEXAMETHASONE 4 MG/ML VIAL IVP SCH (08:43)
[2020-10-06] MEDS: DILTIAZEM 30 MG TAB PO SCH ×3 (08:44→17:54)
[2020-10-06] MEDS: FAMOTIDINE 20 MG/2 ML VIAL IVP SCH (09:10)
[2020-10-06] MEDS: NACL 0.45% 1,000 ML IV SCH (13:11)
[2020-10-06] MEDS: FOAM DRESSING TP SCH (13:11)
--- NOTE | 2020-10-06 19:46 | NUR ---
RECEIVED PATIENT IN SUPINE POSITION , TRACH TO VENT WITH FIO2 40%, PEEP 5, GT FEEDING AT 35 ML/HR , A FIB ON THE OPEN HEARTH FURNACE OPERATOR HELPER WITH THE RATE OF 95, IV DRIP: FENTANYL AT 1.5 MCG/KG/HR IVF 1/2NS AT 10 ML/HR , ALL IV INFUSING AT KALEY PICC LINE, SITE IS CLEAR. TOWNSEND CATH IN PLACE AND DRAINING TO GRAVITY, RECTAL TUBE IN PLACE, WILL CONTINUE TO MONITOR.
[2020-10-06] MEDS: METOPROLOL 25 MG TAB PO SCH (20:34)
[2020-10-07] VITALS (23 sets, daily range): BP systolic 131–176; BP diastolic 60–86
[2020-10-07] MEDS: HYDROCOLLOID DRESSING TP SCH ×2 (01:00→13:00)
--- NOTE | 2020-10-07 04:43 | NUR ---
SKIN CARE AND ORAL CARE PROVIDED , REPOSITION Q2H TO KEEP COMFORT, WILL CONTINUE TO MONITOR.
[2020-10-07 06:09] LABS: ALBUMIN 1.3 g/dL (3.4-5.0); ANION GAP 14.7 (8-16); ASPARTATE AMINOTRANSFERASE 36 U/L (15-37); CARBON DIOXIDE 21.3 mmol/L (21-32); CHLORIDE 106 mmol/L (98-107); CREATININE 0.5 mg/dL (0.6-1.3); GLUCOSE 100 mg/dL (74-106); SODIUM SERUM 138 mmol/L (136-145); TOTAL BILIRUBIN 0.3 mg/dL (0.0-1.0); UREA NITROGEN, BLOOD 22 mg/dL (7-18)
[2020-10-07 06:19] LABS: BASOPHILS % (AUTO) 0.3 % (0.0-2.0); EOSINOPHILS # (AUTO) 0.2 K/uL (0-0.4); EOSINOPHILS % (AUTO) 2.5 % (0.0-4.0); HEMATOCRIT 26.8 % (36-48); HEMOGLOBIN 8.7 g/dL (12.0-16.0); LYMPHOCYTES # (AUTO) 0.9 K/uL (2.5-16.5); LYMPHOCYTES % (AUTO) 10.3 % (20.5-51.1); MEAN CORPUSCULAR HEMOGLOBIN 29 pg (27-31); MEAN CORPUSCULAR HGB CONC 33 g/dL (33-37); MEAN CORPUSCULAR VOLUME 89.6 fL (80-94); MONOCYTES # (AUTO) 0.7 K/uL (0.8-1.0); MONOCYTES % (AUTO) 7.5 % (1.7-9.3); NEUTROPHILS # (AUTO) 7.3 K/uL (1.8-7.7); NEUTROPHILS % (AUTO) 79.4 % (42.2-75.2); PLATELET COUNT (AUTO) 229 K/uL (140-450); RED BLOOD CELL COUNT(AUTO) 2.99 MIL/uL (4.20-5.40); RED CELL DISTRIBUTION WIDTH 17.5 % (11.6-13.7); WHITE BLOOD COUNT (AUTO) 9.2 K/uL (4.8-10.8)
--- NOTE | 2020-10-07 07:41 | NUR ---
UPON INITIAL ASSESSMENT, PT IS LYING SUPINE COMFORTABLY WITH NO SIGNS OF ACUTE DISTRESS. PT IS IN A FIB IN 90S AND BREATHING IN UPPER 20S ON 45% FIO2. PT CURRENTLY ON 1.5 FENTANYL AND 1 OF VERSED, PT WILL OCCASIONALLY OPEN EYES BUT DOES NOT FOLLOW COMMANDS. WILL CONTINUE TO MONITOR AND ASSESS.
[2020-10-07] MEDS: fentaNYL citrate 2.5 MG in NACL 0.9% 200 ML IV PRN (07:50)
[2020-10-07] MEDS: FAMOTIDINE 20 MG/2 ML VIAL IVP SCH (09:14)
[2020-10-07] MEDS: ASCORBIC ACID 500 MG/5 ML ORASYR GT SCH (09:14)
[2020-10-07] MEDS: VITAMIN D 400 IU TAB GT SCH (09:14)
[2020-10-07] MEDS: METOPROLOL 25 MG TAB PO SCH ×2 (09:15→20:47)
[2020-10-07] MEDS: DILTIAZEM 30 MG TAB PO SCH ×3 (09:15→16:54)
--- NOTE | 2020-10-07 10:48 | NUR ---
DECREASED SEDATION BY HALF AT 1000. BY 1030 COMPLETELY TURNED OFF SEDATION. PT LYING COMFORTABLY AND VITALLY STABLE. PT OPENS EYES SPONTANEOUSLY TO VOICE BUT STILL NOT FOLLOWING COMMANDS. WILL CONTINUE TO MONITOR PATIENT.
[2020-10-07] MEDS: FOAM DRESSING TP SCH (13:00)
--- NOTE | 2020-10-07 14:55 | NUR ---
WOUND CARE RE-EVALUATION NOTE: SKIN ASSESSMENT DONE WITH PRIMARY RN, PT. ADMITTED WITH COVID POSITIVE. LAST WEEK TRACH AND PEG. PLACEMENT DONE. PRIMARY RN REPORT THAT SACRALCOCCYX WOUND CHANGE OF CONDITION. LAST ASSESSMENT FROM 2 AREAS OF PARTIAL THICKNESS SKIN LOSS WITH SUPERFICIAL DEPTH TODAY ASSESSMENT IT MERGED INTO ONE WOUND, WITH SLOUGH TISSUE. POC DISCUSSED WITH PRIMARY RN. DR. SALAZAR WAS CALLED AT 1450. COMORBIDITIES RELATED TO DELAY WOUND HEALING, FURTHER SKIN BREAKS: COVID POSITIVE RESPIRATORY FAILURE, HYPOXEMIC DECREASE TISSUE PERFUSION, TISSUE ISCHEMIA, DECREASE MOBILITY AND FUNCTIONAL ABILITIES, AND HOB ELEVATED MOST OF TIMES DUE TO MEDICAL REASONS, AND POSSIBLE SURGICAL STRESS DELAY WOUND HEALING. INTEGUMENTARY: -ORAL MUCOSA AND LIPS ARE CLEAN AND MOIST -TRACH AND PEG MARY-STOMA SKIN DRY AND INTACT -COVID RELATED SKIN ISCHEMIA SACRALCOCCYX AND BUTTOCKS WOUND, WOUND BED 50 % DARK PURPLE ISCHEMIA TISSUE AND 50% BROWN SOFT SLOUGH SKIN, IRREGULAR SHAPE, MARY WOUND SKIN THIN AND PARTIALLY TORN, SURROUNDING TISSUE PURPLE AND MOIST, INDICATED FURTHER DAMAGE -COVID RELATED SKIN HYPOXIA TO MARY NAIL SKIN X 10 TOES, SKIN INTACT. -LEFT AND RIGHT HEELS THIN CALLUS, BLE TRACE EDEMA RECOMMENDATION: -SURGEON CONSULT SACRALCOCCYX WOUND -DISCONTINUE HYDROCOLLOID DRESSING -CLEANSE SACRALCOCCYX BUTTOCKS WOUNDS WITH NS, PAT DRY, APPLY THERAHONEY GEL AND COVER WITH DRY DRESSING QD AND PRN IF SOILING, NO FOAM DRESSING -HEEL PROTECTORS TO BILATERAL HEELS, OFFLOADING -TURN AND REPOSITION PATIENT Q 2H -ASSESS AND MONITOR SKIN CONDITION DURING POSITION CHANGE -OFFLOAD BILATERAL HEELS BY PLACING PILLOWS UNDER CALVES AT ALL TIMES, UNLESS OTHERWISE CONTRAINDICATED -PRESSURE REDISTRIBUTION BY PLACING PILLOWS AND OFFLOADING SACRALCOCCYX -KEEP SKIN CLEAN AND DRY AT ALL TIMES. Addendum: 10/07/20 at 1544 by Melissa Mendez RN (Grace) DR. SALAZAR DID NOT CALL BACK, SPOKE TO PRIMARY RN CONTINUE TO FOLLOW UP TO CALL DR SALAZAR FOR SURGEON CONSULT SACRAL WOUND. CALL PIG FARM MANAGER CECILIA [phone], MAIL BOX IS FULL MEASUREMENT TO SACRALCOCCXY/BUTTOCKS WOUND IS 8X12X0.1CM
[2020-10-07] MEDS: LORazepam 2 MG/ML VIAL IVP PRN (15:08)
[2020-10-07] MEDS: METOPROLOL 5 MG/5 ML VIAL IV PRN (15:09)
--- NOTE | 2020-10-07 15:10 | NUR ---
10/07/20 RD FOLLOW UP COMPLETED PLEASE REFER TO NUTRITION ASSESSMENT UNDER CARE ACTIVITY FOR ESTIMATED NUTRITIONAL NEEDS. 1. RECOMMEND TWO MICHAEL HN @ 35 ML/HR AND PRO SOURCE BID -PROVIDES 840 ML OF VOLUME, 1800 KCAL, 100 GM OF PROTEIN, WHICH IS MEETING 100% OF ESTIMATED KCAL AND PROTEIN NEEDS 2. CURRENT FLUSH IS [address] TO FOLLOW-UP 2-3 DAYS, HIGH RISK SHAUNNA BURCH RD
--- NOTE | 2020-10-07 15:27 | NUR ---
WOUND CARE NURSE AT BEDSIDE ASSISTING WITH DRESSING CHANGE. WOUND CLEANSED WITH STERILE WATER AND IODINE . WOUND BED APPEARS BLISTERED WITH PATCHES OF BLACK AND WHITE. DURING AND AFTER DRESSING CHANGE, PT TACHYCARDIC IN 140S-150S AND BREATHING IN 40S. HR SUSTAINED IN 140S FOR 15 MINUTES. PRN METOPROLOL ADMINISTERED. WITHIN 15 MINUTES HR RETURNED TO AFIB IN 90S. WOC NURSE TO PLACE SURGICAL CONSULT FOR BEDSIDE DEBRIDEMENT.
--- NOTE | 2020-10-07 18:46 | NUR ---
PT'S HR OCCASIONALLY INCREASES FROM LOW 100S TO AFIB IN 150S FOR ONLY A FEW SECONDS, THEN RETURNS BACK TO A FIB IN LOW 100S. PT NOT SYMPTOMATIC TO HR CHANGES, BUT RISK MANAGEMENT DIRECTOR NOTICED THIS DRASTIC FLUCTUATION EVERY FEW HOURS THROUGHOUT SHIFT.
--- NOTE | 2020-10-07 19:50 | NUR ---
RECEIVED PATIENT IN SUPINE , TRACH TO VENT WITH FIO2 40%, O2 SAT IS 93%, ON GT FEEDING AT 35 ML/HR, IV SEDATION WITH FENTANYL 2 MCG/KG/HR, IVF 1/2 NS AT 10 ML/HR, A FIB WITH THE RATE OF 134 SHOWED ON THE MONITOR, TOWNSEND CATH IN PLACE AND DRAINING TO GRAVITY, RECTAL TUBE IN PLACE, WILL CONTINUE TO MONITOR.
[2020-10-08] VITALS (24 sets, daily range): BP systolic 97–159; BP diastolic 50–85
[2020-10-08] MEDS: METOPROLOL 5 MG/5 ML VIAL IV PRN (01:00)
--- NOTE | 2020-10-08 01:00 | NUR ---
HR UP TO 152 LOPRESSOR 5 MG IVP GIVEN PRN ORDERED, WILL CONTINUE TO MONITOR.
[2020-10-08 06:07] LABS: BASOPHILS % (AUTO) 0.4 % (0.0-2.0); EOSINOPHILS % (AUTO) 0.3 % (0.0-4.0); HEMATOCRIT 26.5 % (36-48); HEMOGLOBIN 8.6 g/dL (12.0-16.0); LYMPHOCYTES # (AUTO) 0.8 K/uL (2.5-16.5); LYMPHOCYTES % (AUTO) 7.2 % (20.5-51.1); MEAN CORPUSCULAR HEMOGLOBIN 29 pg (27-31); MEAN CORPUSCULAR HGB CONC 32 g/dL (33-37); MEAN CORPUSCULAR VOLUME 89.4 fL (80-94); MONOCYTES % (AUTO) 8.5 % (1.7-9.3); NEUTROPHILS # (AUTO) 9.5 K/uL (1.8-7.7); NEUTROPHILS % (AUTO) 83.6 % (42.2-75.2); PLATELET COUNT (AUTO) 232 K/uL (140-450); RED BLOOD CELL COUNT(AUTO) 2.97 MIL/uL (4.20-5.40); RED CELL DISTRIBUTION WIDTH 17.1 % (11.6-13.7); WHITE BLOOD COUNT (AUTO) 11.4 K/uL (4.8-10.8)
[2020-10-08 06:19] LABS: ALBUMIN 1.3 g/dL (3.4-5.0); ANION GAP 12.7 (8-16); ASPARTATE AMINOTRANSFERASE 33 U/L (15-37); CARBON DIOXIDE 22.3 mmol/L (21-32); CHLORIDE 106 mmol/L (98-107); CREATININE 0.5 mg/dL (0.6-1.3); GLUCOSE 144 mg/dL (74-106); SODIUM SERUM 137 mmol/L (136-145); TOTAL BILIRUBIN 0.4 mg/dL (0.0-1.0); UREA NITROGEN, BLOOD 16 mg/dL (7-18)
--- NOTE | 2020-10-08 07:34 | NUR ---
RECEIVED PATIENT FROM NIGHT NURSE. PT LYING SUPINE. APPEARS CALM AND COMFORTABLE AND DOES NOT SEEM TO BE IN ANY SIGNS OF ACUTE DISTRESS. PT IN A FIB AT 115, SATTING 96% ON 35% FIO2 ON VENTILATOR AND BREATHING TRACH TO MECHANICAL VENTILATOR AT 35 BREATHS/MIN. PT CURRENTLY HAS FENTANYL AT 2 MCG/KG/HR. WILL CONTINUE TO MONITOR AND ASSESS PATIENT.
--- NOTE | 2020-10-08 07:52 | NUR ---
RECEIVED ON A [employer] Innovation[employer]APE R860 VENTILATOR PLUGGED INTO RED OUTLET TOLERATING WELL WITHOUT ADVERSE REACTIONS NOTED TO A PORTEX DCT #8 AIRWAY SECURED WITH HO TRACH TIE CUFF PRESSURE CHECKED NOTED RESTING WELL GOOD CHEST RISE DEEP TRACHEAL SUCTION FOR MODERATE SEMI THICK PALE YELLOW SECRETIONS AIRWAY PATENT
[2020-10-08] MEDS ORDERED: fentaNYL citrate 1 MG in NACL 0.9% 80 ML IV PRN (08:05)
[2020-10-08] MEDS: ASCORBIC ACID 500 MG/5 ML ORASYR GT SCH (08:31)
[2020-10-08] MEDS: METOPROLOL 25 MG TAB PO SCH ×2 (08:32→20:25)
[2020-10-08] MEDS: VITAMIN D 400 IU TAB GT SCH (08:32)
[2020-10-08] MEDS: DILTIAZEM 30 MG TAB PO SCH ×3 (08:33→17:08)
[2020-10-08] MEDS: FAMOTIDINE 20 MG/2 ML VIAL IVP SCH (08:33)
--- NOTE | 2020-10-08 10:00 | NUR ---
PLACE CALL AGAIN TO DR. UPTON WHO IS IN CHARGE OF PT. CARE TODAY AND REPORT OF CHANGE OF CONDITION FOR SACRAL WOUND AND REQUEST SURGEON CONSULT AND POSSIBLE DEBRIDEMENT.
--- NOTE | 2020-10-08 10:00 | NUR ---
PT RESTING COMFORTABLY ALTHOUGH BREATHING IN HIGH 30S. VITAL SIGNS STABLE AND PT OPENING EYES WHILE IN ROOM SPONTANEOUSLY. PT NOT FOLLOWING COMMANDS BUT OCCASIONALLY TRACKS NURSE WITH EYES. WILL CONTINUE TO MONITOR AND ASSESS.
--- NOTE | 2020-10-08 10:10 | NUR ---
RESTING COMFORTABLY GOOD CHEST RISE AIRWAY PATENT
[2020-10-08] MEDS: fentaNYL citrate - 50mL vial 2.5 MG in NACL 0.9% 200 ML IV PRN ×2 (11:41→23:58)
--- NOTE | 2020-10-08 12:30 | NUR ---
AT 1230 PT BEGAN BREATHING IN MID 40S AND HR INCREASED FROM (AFIB) IN 90S TO (AFIB) IN 140S. ATTEMPTED TO SUCTION TRACH AND SUCTIONED LARGE AMOUNT, WELL REPOSITION. WITHIN 15 MINUTES, PT CONTINUED A FIB RVR AND RR IN 40S. ADMINISTERED PRN ATIVAN PER MAR AND WITHIN 15 MINUTES PT RETURNED TO BASELINE OF HR IN 90S AND RR IN 30S. WILL CONTINUE TO MONITOR AND ASSESS.
[2020-10-08] MEDS: LORazepam 2 MG/ML VIAL IVP PRN ×2 (12:50→17:33)
[2020-10-08] MEDS: ACETAMINOPHEN 325 MG TAB PO PRN (12:51)
[2020-10-08] MEDS: THERAHONEY GEL 42.5 GM TP SCH (13:00)
--- NOTE | 2020-10-08 16:55 | NUR ---
DUE TO SEVERE PITTING EDEMA IN HANDS, USED RING CUTTER FROM ED TO CUT 7 RINGS FROM PT'S FINGERS. RINGS PLACED IN PLASTIC BAG WITH PT STICKER AND GIVEN TO SECURITY TO PLACE IN SAFE. WILL NOTIFY PT'S FAMILY DURING NEXT UPDATE.
--- NOTE | 2020-10-08 17:23 | NUR ---
RESTING WELL GOOD CHEST RISE AND AERATION THROUGHOUT BILATERAL LUNG GOMEZ AIRWAY PATENT
[2020-10-08] MEDS ORDERED: FENTANYL C 0.05 MG/HR PATCH TD SCH (17:30)
--- NOTE | 2020-10-08 17:33 | NUR ---
DR. KERWIN SALAZAR EVALUATING PATIENT PER VORBO CHANGED VENTILATOR SETTINGS NOTED; YUNG HOLLOWAY 10/09/2020 AT 0600 Addendum: 10/08/20 at 1800 by Deven Todd RT CRISTOFER NOTIFIED OF NEW VENTILATOR SETTINGS
--- NOTE | 2020-10-08 18:00 | NUR ---
STOPPED FENTANYL GTT PER DR SALAZAR AT 1800. REQUESTED GTT TO BE REPLACED WITH FENTANYL PATCH. PATCH PLACED ON L SHOULDER. WITHIN 3O MINUTES, PT BEGAN BREATHING IN MID 40S WITH PEAK PRESSURES IN 40S. AFTER REPOSITIONING PT AND ADMINISTERING ATIVAN, PT CONTINUED BREATHING IN 40S WITH HIGH PEAK PRESSURES. CALLED DR. SOSA REQUESTING ADDITIONAL PRN MEDICATIONS AT 1845 AND ORDERED 50 MCG FENT Q 4H IV PUSH. WILL CONTINUE TO WEAN PT FROM FENTANYL GTT.
--- NOTE | 2020-10-08 20:00 | NUR ---
RECEIVED PATIENT IN SUPINE POSITION , TRACH TO VENT WITH FIO2 45% PEEP 5, GT FEEDING AT 35 ML/HR , IV DRIP FENTANYL AT 2 MCG/KG/HR, SINUS TACH ON THE MONITOR, TOWNSEND CATH IN PLACE AND DRAINING TO GRAVITY. WILL CONTINUE TO MONITOR.
[2020-10-09] VITALS (32 sets, daily range): BP systolic 100–163; BP diastolic 27–95
--- NOTE | 2020-10-09 02:00 | NUR ---
ORAL CARE AND SKIN CARE GIVEN , DRESSING TO SACRAL AREA CHANGED ORDERED.
--- NOTE | 2020-10-09 05:40 | NUR ---
TEMP 101.2 TYLENOL 650 MG GT GIVEN PRN ORDERED , HR UP TO 150 , LOPRESSOR 5 MG IVP GIVEN , WILL CONTINUE TO MONITOR
[2020-10-09] MEDS: METOPROLOL 5 MG/5 ML VIAL IV PRN (05:41)
[2020-10-09] MEDS: ACETAMINOPHEN 325 MG TAB PO PRN ×2 (05:42→21:27)
--- NOTE | 2020-10-09 07:10 | NUR ---
RECEIVED PT ASLEEP COMFORTABLY.NO FACIAL GRIMACES SEEN.W/ PATENT CONTRAPTIONS. NON RESPONSIVE TO VERBAL STIMULI BUT WITHDRAWS TO PAINFUL STIMULI.NO FACIAL GRIMACES SEEN.
[2020-10-09] MEDS: VITAMIN D 400 IU TAB GT SCH (08:51)
[2020-10-09] MEDS: ASCORBIC ACID 500 MG/5 ML ORASYR GT SCH (08:52)
[2020-10-09] MEDS: DILTIAZEM 30 MG TAB PO SCH ×3 (08:52→16:55)
[2020-10-09] MEDS: METOPROLOL 25 MG TAB PO SCH ×2 (08:53→20:25)
[2020-10-09] MEDS: fentaNYL citrate - 50mL vial 2.5 MG in NACL 0.9% 200 ML IV PRN ×4 (09:00→12:00)
[2020-10-09] MEDS: FAMOTIDINE 20 MG/2 ML VIAL IVP SCH (09:03)
[2020-10-09] MEDS: FENTANYL C 0.025 MG/HR PATCH TD SCH (12:00)
--- NOTE | 2020-10-09 12:00 | NUR ---
FENTANYL DRIP TAPERED OFF. FENTANYL PATCH 0.O25MCG APPLIED ON THE RT UPPER CHEST. PT CALM AND QUIET. NO FACIAL GRIMACES SEEN.REPOSITIONED AND MAINTAINED ON 30 DEGREES HOB TO FACILITATE EASY BREATHING AND PREVENT ASPIRATION.
[2020-10-09] MEDS: THERAHONEY GEL 42.5 GM TP SCH (13:00)
--- NOTE | 2020-10-09 16:00 | NUR ---
TEPID SPONGE BATH DONE. ORAL CARE RENDERED. SUCTIONED SECRETIONS AFTER.REPOSITIONED AND MAINTAINED ON 30 DEGREES HOB TO FACILITATE EASY BREATHING AND PREVENT ASPIRATION. STILL ON AF AFLUTTER W/ UNCONTROLLED RATE.
[2020-10-09] MEDS: LORazepam 2 MG/ML VIAL IVP PRN (16:15)
--- NOTE | 2020-10-09 17:00 | NUR ---
VISITED AND EXAMINED BY DR. SALAZAR AND UPDATED TO PT'S CONDITION AND PT STILL FEBRILE.STILL FOR TRANSFER TO [facility] PENDING.
--- NOTE | 2020-10-09 18:49 | NUR ---
ALL NEEDS ATTENDED AND MET DURING THE SHIFT.CONDITION STATUS QUO. 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
--- NOTE | 2020-10-09 20:10 | NUR ---
RECEIVED REPORT FROM DAY SHIFT NURSE. PT IN BED WITH HOB ELEVATED. PT ON TRACH CONNECTED TO VENT. SETTING FOLLOW AC/VC FIO2 45, VT 500, RATE 20, PEEP 5. PT NOT IN DISTRESS. O2 SAT 97%. PT WITH CONTINUOUS FEEDING INFUSING WELL. TOWNSEND CATHETER AND RECTAL TUBE IN PLACE DRAINING WELL. PT WITH SACROCOCCYGEAL ULCER, DRAINING IN PLACE. NO S/SX OF PAIN OR DISCOMFORT NOTED. FLACC 0. PT KEPT COMFORTABLE. SAFETY MEASURES IN PLACE. WILL CONTINUE TO MONITOR.
--- NOTE | 2020-10-09 21:27 | NUR ---
VS TAKEN. PT FEBRILE TEMP 102. SCHEDULED MEDS GIVEN. PRN TYLENOL GIVEN ORDERED. COOLING MEASURES IN PLACE. PT KEPT COMFORTABLE. SAFETY MEASURES IN PLACE. WILL CONTINUE TO MONITOR.
--- NOTE | 2020-10-09 22:30 | NUR ---
PT NOT IN DISTRESS. TRACH CONNECTED TO VENT. PT TURNED AND REPOSITIONED. SUCTIONED, SCANT SECRETIONS OBTAINED. PT KEPT COMFORTABLE. SAFETY MEASURES IN PLACE. WILL CONTINUE TO MONITOR.
[2020-10-10] VITALS (37 sets, daily range): BP systolic 113–199; BP diastolic 59–133
--- NOTE | 2020-10-10 | NUR ---
DR. ORR CALLED AND SAID PT WILL BE SCHEDULED FOR WOUND DEBRIDEMENT TOMORROW. ORDERS RECEIVED TO KEEP PT ON NPO AFTER MIDNIGHT, OBTAIN CONSENT, AND INFORM HOUSE SUPV. ORDERS CARRIED OUT. Addendum: 10/10/20 at 0133 by Amanuel Law RN FAMILY CALLED FOR CONSENT, NO ANSWER, VOICE MAIL FULL. WILL TRY AGAIN LATER.
--- NOTE | 2020-10-10 02:36 | NUR ---
PT IN BED, TRACH CONNECTED TO VENT. PT NOT IN DISTRESS. FLACC 0. PT KEPT COMFORTABLE. KEPT ON NPO. SAFETY MEASURES IN PLACE. WILL CONTINUE TO MONITOR.
--- NOTE | 2020-10-10 04:42 | NUR ---
PERINEAL CARE DONE. PT TURNED TO SIDE AFTER. PT TOLERATED CARE WELL. NO S/SX OF DISTRESS NOTED. PT KEPT ON NPO. SAFETY MEASURES IN PLACE. WILL CONTINUE TO MONITOR.
--- NOTE | 2020-10-10 06:00 | NUR ---
OBTAINED WOUND DEBRIDEMENT CONSENT FROM DAUGHTER CECILIA. WITNESSED BY CHARGE NURSE.
[2020-10-10 06:04] LABS: ANION GAP 12.9 (8-16); CARBON DIOXIDE 21.9 mmol/L (21-32); CHLORIDE 103 mmol/L (98-107); CREATININE 0.5 mg/dL (0.6-1.3); GLUCOSE 79 mg/dL (74-106); POTASSIUM 3.8 mmol/L (3.5-5.1); SODIUM SERUM 134 mmol/L (136-145); UREA NITROGEN, BLOOD 15 mg/dL (7-18)
[2020-10-10 06:10] LABS: BASOPHILS % (AUTO) 0.2 % (0.0-2.0); EOSINOPHILS # (AUTO) 0.4 K/uL (0-0.4); EOSINOPHILS % (AUTO) 3.7 % (0.0-4.0); HEMATOCRIT 22.7 % (36-48); HEMOGLOBIN 7.5 g/dL (12.0-16.0); LYMPHOCYTES # (AUTO) 0.9 K/uL (2.5-16.5); LYMPHOCYTES % (AUTO) 8.7 % (20.5-51.1); MEAN CORPUSCULAR HEMOGLOBIN 29 pg (27-31); MEAN CORPUSCULAR HGB CONC 33 g/dL (33-37); MEAN CORPUSCULAR VOLUME 88.9 fL (80-94); MONOCYTES # (AUTO) 1.5 K/uL (0.8-1.0); MONOCYTES % (AUTO) 13.6 % (1.7-9.3); NEUTROPHILS % (AUTO) 73.8 % (42.2-75.2); PLATELET COUNT (AUTO) 197 K/uL (140-450); RED BLOOD CELL COUNT(AUTO) 2.56 MIL/uL (4.20-5.40); RED CELL DISTRIBUTION WIDTH 17.4 % (11.6-13.7); WHITE BLOOD COUNT (AUTO) 10.8 K/uL (4.8-10.8)
--- NOTE | 2020-10-10 07:05 | NUR ---
REPORT TAKEN FROM INJECTION MOLDING MACHINE TENDERTRICOT KNITTER DERRELL.W/ PATENT CONTRAPTIONS.KEPT NPO FOR DEBRIDEMENT OF WOUND ON THE SACRO COCCYX AREA.PT. TACHYPNEIC NON RESPONSIVE TO VERBAL COMMAND.OPENS EYES BUT NOT TRACKING. PRN MED FOR AGITATION GIVEN IVP.
--- NOTE | 2020-10-10 07:10 | NUR ---
ENDORSED TO DAY SHIFT NURSE FOR CONTINUITY OF CARE
--- NOTE | 2020-10-10 07:10 | NUR ---
RECEIVED TRACH PT WITH A PORTEX 8 ON VENT. SETTINGS AC 20, VT500, PEEP 5 AND FIO2 40%. VT ADJUSTED TO 450ml DUE TO HIGH PEAK PRESSURES/HIGH PLATEAU PRESSURES AND ABNORMAL WAVEFORMS ON VENT. PT IS VERY TACHYPNEIC AND WOB IS INCREASED RR 38-40 AND TACHYPNEIC HR 140-150 NURSE AWARE. VENT IS PLUGGED INTO A RED OUTLET WITH ALARMS ON AND FUNCTIONING. WILL CONTINUE TO MONITOR.
[2020-10-10] MEDS ORDERED: BUPIVACAINE MPF 0.25% 10 ML VIAL INJ ONE (07:36)
[2020-10-10] MEDS ORDERED: HYDROGEN PEROXIDE 3% 240 ML BTL TP ONE (07:37)
[2020-10-10] MEDS: LORazepam 2 MG/ML VIAL IVP PRN ×2 (07:48→19:34)
[2020-10-10] MEDS: METOPROLOL 5 MG/5 ML VIAL IV PRN ×2 (08:45→13:28)
--- NOTE | 2020-10-10 08:45 | NUR ---
OR TEAM CAME IN AND REFRIGERATED NATIONAL TRUCK DRIVER PT. REPORT GIVEN.
[2020-10-10] MEDS ORDERED: fentaNYL citrate 0.05 MG/ML VIAL ONE (08:47)
[2020-10-10] MEDS: VITAMIN D 400 IU TAB GT SCH (09:00)
[2020-10-10] MEDS: METOPROLOL 25 MG TAB PO SCH ×2 (09:00→21:38)
[2020-10-10] MEDS: DILTIAZEM 30 MG TAB PO SCH ×3 (09:00→17:00)
[2020-10-10] MEDS: ASCORBIC ACID 500 MG/5 ML ORASYR GT SCH (09:00)
[2020-10-10] MEDS: FAMOTIDINE 20 MG/2 ML VIAL IVP SCH (09:16)
--- NOTE | 2020-10-10 09:30 | NUR ---
PT RETURNED FROM OR, PT TACHYPNEIC/TACHYCARDIC. RR 48-50, PHYSICIAN IS BEDSIDE AT THIS TIME. NURSE BEDSIDE AND AWARE OF PT STATUS. WILL CONTINUE TO MONITOR.
--- NOTE | 2020-10-10 09:45 | NUR ---
BACK FROM OR W/ ESCORT. PLACED BACK TO NARCOTICS AND VICE DETECTIVE PT VERY TACHYPNEIC USING RESPIRATORY ACCESSORY MUSCLES,RT AND DR. YOU @ BEDSIDE.PRN MED FOR PAIN GIVEN THRU IVP.
[2020-10-10] MEDS ORDERED: MORPHINE SULFATE 4 MG/ML SYR ONE (09:51)
--- NOTE | 2020-10-10 09:55 | NUR ---
PT SWITCHED TO A/C PC PInsp 20, R20, PEEP 5 AND FIO2 100% DUE TO ON A/C VC HIGH PEAK PRESSURES AND HIGH PLATEAU PRESSURES, VT HAVE DROPPED ON A/C VC. PT REMAINS HIGHLY TACHYPNEIC/TACHYCARDIC. ADEQUATE VT BEING DELIVERED AT THIS TIME. WILL CONTINUE TO MONITOR.
[2020-10-10] MEDS: ACETAMINOPHEN 325 MG TAB PO PRN ×2 (12:29→15:54)
[2020-10-10] MEDS: THERAHONEY GEL 42.5 GM TP SCH (13:00)
[2020-10-10] MEDS: fentaNYL citrate 0.05 MG/ML VIAL IVP PRN ×2 (13:03→19:32)
--- NOTE | 2020-10-10 13:34 | NUR ---
10/10/20 RD FOLLOW UP COMPLETED PLEASE REFER TO NUTRITION ASSESSMENT UNDER CARE ACTIVITY FOR ESTIMATED NUTRITIONAL NEEDS. 1. CONTINUE TWO MICHAEL HN @ 35 ML/HR AND PROSOURCE BID -PROVIDES 840 ML OF VOLUME, 1800 KCAL, 100 GM OF PROTEIN, WHICH IS MEETING 100% OF ESTIMATED KCAL AND PROTEIN NEEDS 2. RECOMMEND FLUSH IS 150 ML Q4H 3. FOLLOW-UP 2-3 DAYS, HIGH RISK SHAUNNA BURCH RD
--- NOTE | 2020-10-10 14:30 | NUR ---
SEEN AND EXAMINED BY DR SALAZAR UPDATED TO PT'S CONDITION NO FURTHER ORDER MADE.
--- NOTE | 2020-10-10 18:52 | NUR ---
ALL NEEDS ATTENDED AND MET DURING THE SHIFT. PT'S CONDITION UNCHANGED. TO BE ENDORSED TO INCOMING CORE PLACERINORGANIC CHEMISTRY TEACHER FOR CONTINUITY OF CARE.
--- NOTE | 2020-10-10 19:30 | NUR ---
RECEIVED PATIENT CARE REPORT FROM NAVA RN. PATIENT NON-RESPONSIVE, HOB 30 DEGREES, ETT TO TRACH, VENT SETTINGS AC/PC RR SET TO 22, FIO2 40%, AND PEEP 5. PATIENT HAS A HIGH RESPIRATORY RATE BETWEEN 45-50 BPM. PATIENT IS CONNECTED TO CONTINUOUS INSTRUMENT CHECKER, SINUS TACHYCARDIA ON THE MONITOR AT 110 BPM. IV ACCESS SITES INCLUDE RIGHT UPPER ARM PICC LINE DOUBLE LUMEN. IV DRIPS CURRENTLY RUNNING INCLUDE 0.45 1/2 NS AT 10 ML/HR. PATIENT WEIGHT IS 75.7KG. PATIENT HAS G TUBE CONNECTED, PATENT, INTACT AND SECURED. TUBE FEEDING IS HN 2CAL AT 35 ML/HR, FWF 50 ML Q4. RESIDUALS 20 ML. TOWNSEND CATH CONNECTED, SECURED AND INTACT. PATIENT STATUS POST SURGERY, MONITORING FOR ANY SIGNS OF BLEEDING. PATIENT SKINS, HAS SACRAL WOUND AND LARGE DRESSING. PATIENT PLACED INTO A POSITION OF COMFORT, OFFLOADED FROM PRESSURE POINTS WITH USE OF PILLOWS AND REPOSITIONING. BED LOWERED AND LOCKED INTO A POSITION OF SAFETY, WILL CONTINUE TO CLOSELY MONITOR AND FREQUENTLY ROUND THROUGHOUT THE SHIFT.
--- NOTE | 2020-10-10 20:00 | NUR ---
VAP ORAL CARE PROVIDED, TRACH/ORAL SUCTIONING, REPOSITIONING, HYGIENE AND SAFETY CHECKS. WILL CONTINUE TO CLOSELY MONITOR AND FREQUENTLY ROUND.
--- NOTE | 2020-10-10 22:10 | NUR ---
CALLED/PAGED FOR LITHOGRAPHIC ETCHER PHYSICIAN DR. CORAZON VILLASEÑOR REGARDING PATIENT'S INCREASED RESPIRATIONS AND ACCESSORY MUSCLE USAGE.
--- NOTE | 2020-10-10 22:15 | NUR ---
RECEIVED CALL BACK FROM DR. CORAZON VILLASEÑOR. NOTIFIED PHYSICIAN OF CURRENT PATIENT STATUS, WAS GIVEN ORDER TO RESUME PROPOFOL SEDATION. WILL CONTINUE TO OBSERVE, CLOSELY MONITOR AND FREQUENTLY ROUND
[2020-10-10] MEDS: PROPOFOL 1000 MG/100 ML PREMIX 100 ML IV PRN (22:37)
--- NOTE | 2020-10-10 22:45 | NUR ---
AFTER RESTARTING LIGHT SEDATION, SLIGHT IMPROVEMENT TO PATIENT CONDITION. RR AT 35-38. WILL CONTINUE TO CLOSELY MONITOR, FREQUENTLY ROUND, AND TITRATE SEDATION NEEDED PER ORDERS.
[2020-10-11] VITALS (22 sets, daily range): BP systolic 97–139; BP diastolic 54–78
--- NOTE | 2020-10-11 | NUR ---
VAP ORAL CARE PROVIDED, HYGIENE, TRACH/ORAL SUCTIONING, REPOSITIONING AND SAFETY CHECKS. PATIENT TOLERATING CURRENT ORDERED SEDATION AND VENT SETTINGS. WILL CONTINUE TO CLOSELY MONITOR AND FREQUENTLY ROUND.
--- NOTE | 2020-10-11 01:00 | NUR ---
RECEIVED CALL FROM NURSE HURD, AT [facility] ABOUT TRANSFERRING. CHARGE NURSE NOTIFIED. VANNESSA'S CALL BACK NUMBER IS [phone].
[2020-10-11] MEDS: PROPOFOL 1000 MG/100 ML PREMIX 100 ML IV PRN ×4 (01:39→14:30)
--- NOTE | 2020-10-11 02:00 | NUR ---
PATIENT TOLERATING SEDATION, STILL HIGH RATE OF RESPIRATIONS, WILL CONTINUE TO CLOSELY MONITOR AND FREQUENTLY ROUND.
--- NOTE | 2020-10-11 04:00 | NUR ---
VAP ORAL CARE, HYGIENE, REPOSITIONING, SAFETY CHECKS AND TRACH/ORAL SUCTIONING PROVIDED. WILL CONTINUE TO CLOSELY MONITOR AND FREQUENTLY ROUND.
[2020-10-11] MEDS: LORazepam 2 MG/ML VIAL IVP PRN ×2 (06:04→10:36)
[2020-10-11] MEDS: fentaNYL citrate 0.05 MG/ML VIAL IVP PRN (06:04)
[2020-10-11 06:52] LABS: ALBUMIN 0.9 g/dL (3.4-5.0); ANION GAP 13.4 (8-16); ASPARTATE AMINOTRANSFERASE 38 U/L (15-37); CARBON DIOXIDE 21.2 mmol/L (21-32); CHLORIDE 103 mmol/L (98-107); CREATININE 0.4 mg/dL (0.6-1.3); GLUCOSE 74 mg/dL (74-106); POTASSIUM 3.6 mmol/L (3.5-5.1); SODIUM SERUM 134 mmol/L (136-145); TOTAL BILIRUBIN 0.5 mg/dL (0.0-1.0); UREA NITROGEN, BLOOD 13 mg/dL (7-18)
--- NOTE | 2020-10-11 07:00 | NUR ---
PATIENT CARE REPORT AND CARE TRANSFERRED TO DAYSHIFT RN.
--- NOTE | 2020-10-11 07:40 | NUR ---
REPORT RECEIVED, PT VENTED VIA TRACHEOSTOMY,NOT IN DISTRESS BUT TACHYPNEIC ON PROPOFOL DRIP AT 40MCG/KG/MIN, ON CONTINUOUS FEEDING VIA GT,WITH WATER FLUSH 50 MLS EVERY 4 HRS, TOWNSEND CATHETER PATENT CONNECTED TO DRAINAGE BAG,CONTINUE TO OBSERVE.
[2020-10-11] MEDS: VITAMIN D 400 IU TAB GT SCH (08:12)
[2020-10-11] MEDS: ASCORBIC ACID 500 MG/5 ML ORASYR GT SCH (08:12)
[2020-10-11] MEDS: METOPROLOL 25 MG TAB PO SCH (08:13)
[2020-10-11] MEDS: DILTIAZEM 30 MG TAB PO SCH ×2 (08:13→12:11)
[2020-10-11] MEDS: FAMOTIDINE 20 MG/2 ML VIAL IVP SCH (08:13)
--- NOTE | 2020-10-11 08:45 | NUR ---
[facility] CALLED FOR PT POSSIBLE TRANSFER TODAY,SPOKEN WITH THE CHARGE ASHLEY BARBA, TRIAL WEANING FROM PROPOFOLDESPITE PT TACHYPNEA.
[2020-10-11 09:29] LABS: BASOPHILS # (AUTO) 0.1 K/uL (0.00-0.22); BASOPHILS % (AUTO) 0.9 % (0.0-2.0); EOSINOPHILS # (AUTO) 0.3 K/uL (0-0.4); EOSINOPHILS % (AUTO) 2.1 % (0.0-4.0); HEMATOCRIT 24.6 % (36-48); HEMOGLOBIN 7.9 g/dL (12.0-16.0); LYMPHOCYTES # (AUTO) 0.4 K/uL (2.5-16.5); LYMPHOCYTES % (AUTO) 3.4 % (20.5-51.1); MEAN CORPUSCULAR HEMOGLOBIN 29 pg (27-31); MEAN CORPUSCULAR HGB CONC 32 g/dL (33-37); MEAN CORPUSCULAR VOLUME 89.1 fL (80-94); MONOCYTES # (AUTO) 1.2 K/uL (0.8-1.0); MONOCYTES % (AUTO) 9.6 % (1.7-9.3); NEUTROPHILS # (AUTO) 10.7 K/uL (1.8-7.7); PLATELET COUNT (AUTO) 217 K/uL (140-450); RED BLOOD CELL COUNT(AUTO) 2.76 MIL/uL (4.20-5.40); RED CELL DISTRIBUTION WIDTH 16.7 % (11.6-13.7); WHITE BLOOD COUNT (AUTO) 12.7 K/uL (4.8-10.8)
--- NOTE | 2020-10-11 09:45 | NUR ---
PT VERY TACHYPNEIC ON THE 50, BREATHING OVER THE VENT, CHARGE NURSE AWARE, PUT BACK ON PROPOFOL AT 40 MCG/KG/MIN
[2020-10-11] MEDS ORDERED: HYDROcodone/APAP 10/325 MG 1 TAB TAB GT PRN (11:50)
[2020-10-11] MEDS ORDERED: MORPHINE SULFATE 4 MG/ML SYR IVP PRN (11:50)
--- NOTE | 2020-10-11 11:50 | NUR ---
DR OCHOA HERE, SEEN PT, NOTED ALL PARAMETERS, AWARE THAT PT POSSIBLE TRANSFER TO [facility].
[2020-10-11] MEDS ORDERED: PEP20I IVP (11:56)
[2020-10-11] MEDS ORDERED: ROB PO (11:56)
[2020-10-11] MEDS ORDERED: NORC10 GT (11:56)
[2020-10-11] MEDS ORDERED: Therahoney Gel TP (11:56)
[2020-10-11] MEDS ORDERED: ATI2I IVP (11:56)
[2020-10-11] MEDS ORDERED: MORP4SOL10 IVP (11:56)
[2020-10-11] MEDS ORDERED: ASCO-672 GT (11:56)
[2020-10-11] MEDS ORDERED: BENZ100C6 PO (11:56)
[2020-10-11] MEDS ORDERED: DILT-15 PO (11:56)
[2020-10-11] MEDS ORDERED: METO1SOL22 IV (11:56)
[2020-10-11] MEDS ORDERED: VITD400 GT (11:56)
[2020-10-11] MEDS ORDERED: HEPA500056 SUBQ (11:56)
[2020-10-11] MEDS ORDERED: ACET-1182 PO (11:56)
[2020-10-11] MEDS ORDERED: METO25TA PO (11:56)
[2020-10-11] MEDS ORDERED: ONDA2SOL45 IVP (11:56)
[2020-10-11] MEDS ORDERED: DIPDRIP IV (11:56)
[2020-10-11] MEDS ORDERED: [UNRECOGNIZED DRUG - CODE] TD (11:56)
[2020-10-11] MEDS: FENTANYL C 0.025 MG/HR PATCH TD SCH (12:02)
[2020-10-11] MEDS: THERAHONEY GEL 42.5 GM TP SCH (12:03)
--- NOTE | 2020-10-11 13:00 | NUR ---
PT CONDITION SAME, VENTED VIA TRACHEOSTOMY, AC/PC WITH FIO2 35%,RATE 22 WITH 5 OF PEEP, GT INTACT, TOWNSEND CATHETER DRAING BY GRAVITY.
--- NOTE | 2020-10-11 14:00 | NUR ---
REPORT GIVEN TO ADAM PRYOR,ANALYST COMPETITIVE INTELLIGENCE TIME 1400. CECILIA EVERETT PT DAUGHTER INFORMED OF PT TRANSFER TP [facility] DENITA MARIE
--- NOTE | 2020-10-11 14:45 | NUR ---
AMBULANCE HERE, ENDORSED TO THEM ,VENT SETTING ,AC/PC 22FIO2 35%,PEEP OF 5, VSS,SATURATING WELL 98%..TF OFF FOR NOW TO TRANSPORT. TRANSFERRED VIA AMBULANCE IN STABLE CONDITION
== END 2020-10-11 15:15 | DRG 3 ==
LOC: MED 16:34 → MMU 20:01 → MIC 09-18 19:15
PROVIDERS: ADMIT Hospitalist; ATTEND Hospitalist
PROC: 0BH17EZ Insertion of Endotracheal Airway into Trachea, Via Natural or Artificial Opening (ICD-10-PCS; 2020-08-30)
PROC: 5A09357 Assistance with Respiratory Ventilation, Less than 24 Consecutive Hours, Continuous Positive Airway Pressure (ICD-10-PCS; 2020-09-16)
PROC: 5A1955Z Respiratory Ventilation, Greater than 96 Consecutive Hours (ICD-10-PCS; principal; 2020-09-17)
PROC: XW033E5 Introduction of Remdesivir Anti-infective into Peripheral Vein, Percutaneous Approach, New Technology Group 5 (ICD-10-PCS; 2020-09-17)
PROC: 02HV33Z Insertion of Infusion Device into Superior Vena Cava, Percutaneous Approach (ICD-10-PCS; 2020-09-19)
PROC: B548ZZA Ultrasonography of Superior Vena Cava, Guidance (ICD-10-PCS; 2020-09-19)
PROC: 5A1D70Z Performance of Urinary Filtration, Intermittent, Less than 6 Hours Per Day (ICD-10-PCS; 2020-09-20)
PROC: 5A1D70Z Performance of Urinary Filtration, Intermittent, Less than 6 Hours Per Day (ICD-10-PCS; 2020-09-21)
PROC: 5A1D70Z Performance of Urinary Filtration, Intermittent, Less than 6 Hours Per Day (ICD-10-PCS; 2020-09-22)
PROC: 30233N1 Transfusion of Nonautologous Red Blood Cells into Peripheral Vein, Percutaneous Approach (ICD-10-PCS; 2020-09-29)
PROC: 0B110F4 Bypass Trachea to Cutaneous with Tracheostomy Device, Open Approach (ICD-10-PCS; 2020-10-03)
PROC: 0DH63UZ Insertion of Feeding Device into Stomach, Percutaneous Approach (ICD-10-PCS; 2020-10-03)
PROC: 0QB10ZZ Excision of Sacrum, Open Approach (ICD-10-PCS; 2020-10-10)
DX: A41.9 Sepsis, unspecified organism (principal); U07.1 COVID-19; I21.A1 Myocardial infarction type 2; N17.0 Acute kidney failure with tubular necrosis; J12.82 Pneumonia due to coronavirus disease 2019; G93.41 Metabolic encephalopathy; J96.21 Acute and chronic respiratory failure with hypoxia; R53.2 Functional quadriplegia; R65.21 Severe sepsis with septic shock; E87.1 Hypo-osmolality and hyponatremia; C90.00 Multiple myeloma not having achieved remission; I42.9 Cardiomyopathy, unspecified; I50.20 Unspecified systolic (congestive) heart failure; E87.6 Hypokalemia; E86.0 Dehydration; I49.1 Atrial premature depolarization; D64.9 Anemia, unspecified; L89.159 Pressure ulcer of sacral region, unspecified stage; R13.10 Dysphagia, unspecified; E78.5 Hyperlipidemia, unspecified; I48.0 Paroxysmal atrial fibrillation; I25.10 Atherosclerotic heart disease of native coronary artery without angina pectoris; Z99.2 Dependence on renal dialysis
CPT/HCPCS: 31500; 36415; 36600; 71045; 80048; 80053; 81001; 82550; 82728; 82803; 83605; 83615; 83735; 83880; 84484; 85025; 85379; 85384; 85610; 85730; 86140; 86704; 86706; 86708; 86709; 86803; 86886; 86900; 86901; 86920; 87040; 87070; 87081; 87086; 87205; 87340; 90935; 93005; 94003; 96365; 96368; 96375; 99291; J0456; J0696; J1100; J1160; J1644; J1650; J1940; J2060; J2250; J2270; J2704; J3010; J3475; J3490; J7030; J7060; P9016; U0003